=== PATIENT | female | born 1960 | race American Indian/Alaskan Native ===

== ENCOUNTER 2016-06-24 06:07 | Emergency (ER) | payer MEDICARE ==
[2016-06-24 07:36] LABS: Basophils % (Auto) 1.7 % (0.0-1.8); Eosinophils % (Auto) 4.8 % (0.0-4.3); Mean Corpuscular HGB Conc 30 % (30-34); Mean Corpuscular Volume 73 fl (79-97); Platelet Count 374 K/mm3 (140-440); Red Blood Count 4.95 M/mm3 (3.65-5.03); White Blood Count 9.1 K/mm3 (4.5-11.0)
[2016-06-24 07:43] LABS: Anion Gap 20 mmol/L; Blood Urea Nitrogen 28 mg/dL (7-17); Calcium 9.1 mg/dL (8.4-10.2); Carbon Dioxide 27 mmol/L (22-30); Chloride 95.8 mmol/L (98-107); Glucose 114 mg/dL (65-100); Potassium 4.4 mmol/L (3.6-5.0); Sodium 138 mmol/L (137-145)
[2016-06-24 07:44] LABS: Hemoglobin 10.8 gm/dl (10.1-14.3)
[2016-06-24 07:45] LABS: Hematocrit 35.9 % (30.3-42.9); Mean Corpuscular Hemoglobin 22 pg (28-32); Red Cell Distribution Width 20.3 % (13.2-15.2)
--- NOTE | 2016-06-24 09:57 | XRay Report ---
ROUTINE CHEST, TWO VIEWS: HISTORY: Shortness of breath. The trachea, heart, mediastinal contour, lung [place] and bony thorax are unremarkable. IMPRESSION: Unremarkable chest x-ray.
--- NOTE | 2016-06-24 13:00 | Emergency Department Report ---
HPI - General Chief Complaint: Dyspnea/Respdistress Time Seen by Provider: 06/24/16 12:45 - HPI HPI: Chief complaint: Swelling to her legs and abdomen, shortness of breath, productive cough HPI: Patient is a 56-year-old female states she's been having swelling and increasing shortness of breath over the last 3 weeks. Patient denies previous history of congestive heart failure. Patient has been coughing up some white and yellow productive sputum. Patient denies fever, nausea, vomiting or diarrhea. Patient is not a smoker. Patient has a remote history of a pulmonary embolus in the past Mode of arrival: private car Source: Patient Began 3 weeks ago Context. Swelling started after taking an [id number] medication called Lucas childers and that is when she started swelling. Quality: Right ankle soreness Severity: 4 out of 10 Improved with: Nothing Worsened with: Exertion and laying flat Associated signs and symptoms: [] ED Past Medical Hx - Past Medical History Previous Medical History?: Yes Hx Hypertension: Yes Hx Diabetes: Yes Hx Pulmonary Embolism: Yes (1994 Blood clot in lung lung collapsed) Additional medical history: Two herniated disc, felt like she had the flu and has had a persistent cough - Medications Home Medications: Home Medications Medication Instructions Recorded Confirmed Last Taken Type Furosemide [Lasix] 20 mg PO QDAY #10 tablet 06/24/16 Unknown Rx Sulfamethoxazole/Trimethoprim 1 each PO BID #20 tablet 06/24/16 Unknown Rx [Bactrim DS TAB] ED Review of Systems ROS: Stated complaint: SWELLING Other details as noted in HPI ROS Constitutional: No fever ENT: No uri symptoms Cardiovascular: No chest pain Respiratory: See HPI GI: No nausea vomiting or diarrhea : No dysuria frequency or urgency, Skin: Erythema to right lower leg Neuro: No focal weakness or numbness Psych: No depression Uriel/lymph: edema Physical Exam - Physical Exam Vital Signs: Vital Signs 06/24/16 06:48 Temperature 98.7 F Pulse Rate 105 H Respiratory 20 Rate Blood Pressure 125/84 O2 Sat by Pulse 88 Oximetry Physical Exam: GENERAL: The patient is a morbidly obese -[place] female with a pulse ox of 88% on room air. HEENT: Normocephalic. Atraumatic. Extraocular motions are intact. Patient has moist mucous membranes. NECK: Supple. No meningitic signs are noted. There is no adenopathy noted. CHEST/LUNGS: Clear to auscultation. There is no respiratory distress noted. HEART/CARDIOVASCULAR: Regular. There is no tachycardia. ABDOMEN: Abdomen is soft, nontender. Patient has normal bowel sounds. There is no abdominal distention. SKIN: There is minimal erythema to the right lower leg. There is 3+ bilateral pedal edema. There is no diaphoresis. NEURO: The patient is awake, alert, and oriented. The patient is cooperative. The patient has no focal neurologic deficits. The patient has normal speech. MUSCULOSKELETAL: There is no tenderness or deformity. There is no limitation range of motion. There is no evidence of acute injury. ED Course Vital Signs 06/24/16 06:48 Temperature 98.7 F Pulse Rate 105 H Respiratory 20 Rate Blood Pressure 125/84 O2 Sat by Pulse 88 Oximetry - Reevaluation(s) Reevaluation #1: 06/24/16 Patient was given 20 mg of IV Lasix. 06/24/16 17:47 Patient had a negative Doppler of her lower extremities but given her hypoxia and her previous history of DVT a VQ scan was attempted. Patient refused the VQ scan and wants to sign out AGAINST MEDICAL ADVICE. Patient is unable to have a CTA because of her renal sufficiency. Patient also does not want to be admitted to the hospital. ED Medical Decision Making - Lab Data Result diagrams: 06/24/16 07:12 06/24/16 07:12 Laboratory Tests 06/24/16 06/24/16 06/24/16 07:12 07:12 12:44 Calcium 9.1 NT-Pro-B Natriuret Pep 3276 H Ur Leukocyte Esterase Lg Urine WBC (Auto) 98.0 H Urine RBC (Auto) 30.0 U Epithel Cells (Auto) 4.0 Urine Bacteria (Auto) 1+ Urine WBC Clumps 2+ - EKG Data -: EKG Interpreted by Me EKG shows normal: sinus rhythm Rate: tachycardia (103) - EKG Data When compared to previous EKG there are: previous EKG unavailable Interpretation: other (low-voltage EKG) - Radiology Data Radiology results: report reviewed (chest x-ray shows no acute process. Doppler of patient's lower extremity shows no DVT.) Critical care attestation.: If time is entered above; I have spent that time in minutes in the direct care of this critically ill patient, excluding procedure time. ED Disposition Clinical Impression: Pedal edema, Hypoxia, Renal insufficiency Cellulitis Qualifiers: Site of cellulitis: extremity Site of cellulitis of extremity: lower extremity Laterality: right Qualified Code(s): L03.115 - Cellulitis of right lower limb Disposition: LEFT AGAINST MEDICAL ADVICE Is pt being admited?: No Does the pt Need Aspirin: No Condition: Stable Instructions: Leg Edema (ED), Heart Failure (ED), Impaired Kidney Function (ED) Additional Instructions: You will need follow-up with a direct marketing manager to have an echocardiogram to make sure you do not have congestive heart failure. You understand that a pulmonary embolus has not been ruled out and could cause severe disability as well as possible . Prescriptions: Furosemide [Lasix] 20 mg PO QDAY #10 tablet Sulfamethoxazole/Trimethoprim [Bactrim DS TAB] 1 each PO BID #20 tablet Referrals: HENRRY SANTANA MD [Primary Care Provider] - 24 Hours [facility] [Provider Group] - 24 Hours Time of Disposition: 17:54
[2016-06-24 13:09] LABS: Bacteria,Urine 1+ /HPF (Negative); Bilirubin,Urine NEG (Negative); Blood,Urine LG (Negative); Ketones,Urine NEG (Negative); Leukocyte Esterase,Urine LG (Negative); Mucus,Urine FEW /HPF; Nitrite,Urine NEG (Negative); Urobilinogen,Urine < 2.0 mg/dL (<2.0)
[2016-06-24 15:20] LABS: Albumin 3.8 g/dL (3.9-5); Bilirubin,Direct 0.2 mg/dL (0-0.2); Bilirubin,Indirect 0.3 mg/dL; Bilirubin,Total 0.5 mg/dL (0.1-1.2); Total Protein 7.5 g/dL (6.3-8.2)
[2016-06-24] MEDS ORDERED: LASIX IV ONE (15:41)
[2016-06-24 19:09] VITALS: BP 155/79
--- NOTE | 2016-06-25 07:43 | Vascular Lab Report ---
LOWER EXTREMITY VENOUS DUPLEX: REASON FOR EXAM: Bilateral leg swelling. COMMENTS ON THE RIGHT: All veins visualized are freely compressible without evidence of internal echogenicity. Flow is spontaneous and phasic throughout. COMMENTS ON THE LEFT: All veins visualized are freely compressible without evidence of internal echogenicity. Flow is spontaneous and phasic throughout. IMPRESSION: No evidence of acute or chronic deep venous thrombosis in either lower extremity.
== END 2016-06-24 18:00 | disposition left against medical advice (07) ==
LOC: ED 06:07
DX: R09.02 Hypoxemia (principal); N28.9 Disorder of kidney and ureter, unspecified; R60.0 Localized edema; L03.115 Cellulitis of right lower limb; E11.9 Type 2 diabetes mellitus without complications; I26.99 Other pulmonary embolism without acute cor pulmonale; I10 Essential (primary) hypertension; Z88.2 Allergy status to sulfonamides; Z91.040 Latex allergy status
CPT/HCPCS: 36415; 71020; 80048; 80074; 81001; 83880; 84484; 85025; 93005; 93010; 93970; 96374; 99284; J1940

== ENCOUNTER 2018-04-14 14:15 | Inpatient (IN) | payer MEDICARE ==
[2018-04-14 14:53] LABS: Basophils # (Auto) 0.1 K/mm3 (0.0-0.1); Basophils % (Auto) 0.9 % (0.0-1.8); Eosinophils # (Auto) 0.2 K/mm3 (0.0-0.4); Eosinophils % (Auto) 1.6 % (0.0-4.3); Hematocrit 32.4 % (30.3-42.9); Hemoglobin 10.1 gm/dl (10.1-14.3); Lymphocytes # (Auto) 2.4 K/mm3 (1.2-5.4); Lymphocytes % (Auto) 16.5 % (13.4-35.0); Mean Corpuscular HGB Conc 31 % (30-34); Mean Corpuscular Volume 77 fl (79-97); Monocytes # (Auto) 1.3 K/mm3 (0.0-0.8); Platelet Count 415 K/mm3 (140-440)
[2018-04-14 14:54] LABS: Red Cell Distribution Width 20.2 % (13.2-15.2)
[2018-04-14 15:04] LABS: INR 1.26 (0.87-1.13)
[2018-04-14 15:05] LABS: Partial Thromboplastin Time 26.6 Sec. (24.2-36.6)
[2018-04-14 15:15] LABS: Calcium 8.9 mg/dL (8.4-10.2)
--- NOTE | 2018-04-14 15:21 | XRay Report ---
AP CHEST: HISTORY: Difficulty in breathing AP view of the chest demonstrates a normal mediastinal and cardiac contour with clear lungs and normal bony and soft tissue structures. No significant change since 06/14/16. IMPRESSION: Unremarkable AP chest.
[2018-04-14] MEDS ORDERED: NACL 0.9% 500 ML 500 ML IV ONE (15:24)
--- NOTE | 2018-04-14 15:24 | Emergency Department Report ---
ED General Adult HPI - General Chief complaint: Dyspnea/Respdistress Stated complaint: SOB Time Seen by Provider: 04/14/18 15:09 Source: patient, RN notes reviewed, old records reviewed Mode of arrival: Wheelchair Limitations: No Limitations - History of Present Illness Initial comments: This is a 57-year-old female who is not known to this provider previously. History includes asthma, obesity, and her primary care doctor is Dr. Kennedi Dodson The patient presents to the ER with a complaint of painless shortness of breath. This has been present for 2 weeks. Patient reports that she feels malaise, fatigue, tired. She reports no chest pain, no leg pain, no leg swelling, and she is adamant that she's never had a pulmonary embolus or DVT. She denies DVT, pulmonary embolus risk factors. As far she knows, she does not have a history of obstructive sleep apnea, but has never had a formal sleep study. Her bed partner indicates that she does occasionally snore at night. Shortness of breath is constant, worsens with physical exertion, decreases with rest. -: Gradual Consistency: constant Improves with: rest Worsens with: movement Associated Symptoms: loss of appetite, malaise, shortness of breath, weakness. denies: confusion, chest pain, cough, diaphoresis, fever/chills, headaches, nausea/vomiting, rash, seizure, syncope - Related Data Home Medications Medication Instructions Recorded Confirmed Last Taken Albuterol Sulfate [Proventil Hfa] 2 puff IH Q4-6H PRN 04/14/18 04/14/18 04/14/18 Losartan/Hydrochlorothiazide 1 each PO QDAY 04/14/18 04/14/18 04/14/18 [Losartan-Hctz 100-25 mg Tab] Lovastatin [Altoprev] 20 mg PO HS 04/14/18 04/14/18 Unknown Metformin HCl [Glucophage] 1,000 mg PO BID 04/14/18 04/14/18 04/14/18 Sitagliptin Phosphate [Januvia] 100 mg PO QDAY 04/14/18 04/14/18 04/14/18 Allergies Allergy/AdvReac Type Severity Reaction Status Date / Time No Known Allergies Allergy Unverified 06/24/16 06:40 ED Review of Systems ROS: Stated complaint: SOB Other details as noted in HPI Constitutional: malaise, weakness Eyes: denies: eye discharge ENT: denies: epistaxis Respiratory: shortness of breath Cardiovascular: denies: chest pain Gastrointestinal: denies: abdominal pain, nausea, vomiting Genitourinary: denies: dysuria Musculoskeletal: denies: arthralgia, myalgia Skin: denies: lesions Neurological: weakness ED Past Medical Hx - Past Medical History Hx Hypertension: Yes Hx Diabetes: Yes Hx Pulmonary Embolism: Yes (1994 Blood clot in lung lung collapsed) Additional medical history: Two herniated disc, felt like she had the flu and has had a persistent cough - Surgical History Past Surgical History?: No - Social History Smoking Status: Never Smoker Substance Use Type: None - Medications Home Medications: Home Medications Medication Instructions Recorded Confirmed Last Taken Type Albuterol Sulfate [Proventil Hfa] 2 puff IH Q4-6H PRN 04/14/18 04/14/18 04/14/18 History Losartan/Hydrochlorothiazide 1 each PO QDAY 04/14/18 04/14/18 04/14/18 History [Losartan-Hctz 100-25 mg Tab] Lovastatin [Altoprev] 20 mg PO HS 04/14/18 04/14/18 Unknown History Metformin HCl [Glucophage] 1,000 mg PO BID 04/14/18 04/14/18 04/14/18 History Sitagliptin Phosphate [Januvia] 100 mg PO QDAY 04/14/18 04/14/18 04/14/18 Hist ory ED Physical Exam - General Limitations: No Limitations General appearance: alert, in no apparent distress - Head Head exam: Present: atraumatic, normocephalic - Eye Eye exam: Present: normal appearance, EOMI. Absent: nystagmus - ENT ENT exam: Present: normal exam, normal orophraynx, mucous membranes moist, normal external ear exam - Neck Neck exam: Present: normal inspection, full ROM. Absent: tenderness, meningismus - Respiratory Respiratory exam: Present: normal lung sounds bilaterally. Absent: respiratory distress - Cardiovascular Cardiovascular Exam: Present: regular rate, normal rhythm. Absent: systolic murmur, diastolic murmur, rubs, gallop - GI/Abdominal GI/Abdominal exam: Present: soft. Absent: distended, tenderness, guarding, rebound, rigid, pulsatile mass - Extremities Exam Extremities exam: Present: normal inspection, full ROM, other (2+ pulses noted in the bilateral upper, lower extremities. Compartments soft. No long bony tenderness. The pelvis is stable.). Absent: joint swelling, calf tenderness - Back Exam Back exam: Present: normal inspection, full ROM. Absent: tenderness, CVA tenderness (R), muscle spasm, paraspinal tenderness, vertebral tenderness - Neurological Exam Neurological exam: Present: alert, oriented X3, CN II-XII intact, other (Extraocular movements intact. Tongue midline. No facial droop. Facial sensation intact to light touch in the V1, V2, V3 distribution bilaterally. 5 and 5 strength in 4 extremities.. Sensation is intact to light touch in 4 extremities.). Absent: motor sensory deficit - Psychiatric Psychiatric exam: Present: normal affect, normal mood - Skin Skin exam: Present: warm, dry, intact, normal color. Absent: rash ED Course Vital Signs 04/14/18 04/14/18 04/14/18 14:26 15:00 15:16 Temperature 97.5 F L Pulse Rate 94 H 87 Respiratory 22 25 H Rate Blood Pressure 91/56 98/62 O2 Sat by Pulse 88 87 93 Oximetry 04/14/18 04/14/18 04/14/18 15:30 15:46 16:00 Temperature Pulse Rate 86 88 83 Respiratory 21 18 26 H Rate Blood Pressure 99/60 99/60 101/61 O2 Sat by Pulse 93 92 Oximetry 04/14/18 04/14/18 04/14/18 17:08 17:30 18:00 Temperature Pulse Rate 86 88 Respiratory 23 27 H Rate Blood Pressure 101/61 101/60 101/60 O2 Sat by Pulse 95 97 94 Oximetry - Reevaluation(s) Reevaluation #1: 04/14/18 15:57 Differential diagnosis, including but not limited to: Obstructive sleep apnea, right-sided heart failure, renal insufficiency, vasomotor nephropathy, cardiorenal syndrome, obesity hypoventilation syndrome Assessment and plan: 57-year-old female, who reports no DVT, or pulmonary embolus risk factors, who is low risk by well's criteria, who is morbidly obese, most likely with obesity hypoventilation syndrome as well as pulmonary hypertension as well as obstructive sleep apnea, presenting with shortness of breath, hypoxemia, borderline hypoxemic respiratory failure, as well as acute renal insufficiency. Lungs are clear, proBNP appreciated, does not have significant JVD, or significant lower extremity edema. C clinically doubt DVT or pulmonary embolus, given lack of tachycardia, given lack of risk factors, however, we will obtain bilateral lower extremity DVT study, and renal ultrasound study. We will give the patient a trial bolus of 500 mL, and place her on supplemental oxygen. Plan to admit to the medical service for renal optimization and improve oxygenation. This is discussed with patient and family, who verbalized understanding, and are amenable to this plan of care. Discussed with Hospital physician, Dr. Slater, who indicates he will admit the patient to the medical service, and discussed plan of care with covering supervisor decorating, Dr. Jaffe, who agrees with ER plan of care, and indicates he will follow in consultation. Reevaluation #2: 04/14/18 18:45 Patient feels improved. DVT study negative for acute disease. Renal ultrasound shows medical renal disease, otherwise no acute findings. Awaiting bed placement. ED Medical Decision Making - Lab Data Result diagrams: 04/14/18 14:38 04/14/18 14:38 Vital Signs 04/14/18 04/14/18 04/14/18 14:26 15:00 15:16 Temperature 97.5 F L Pulse Rate 94 H 87 Respiratory 22 25 H Rate Blood Pressure 91/56 98/62 O2 Sat by Pulse 88 87 93 Oximetry 04/14/18 04/14/18 15:30 15:46 Temperature Pulse Rate 86 88 Respiratory 21 18 Rate Blood Pressure 99/60 99/60 O2 Sat by Pulse 93 Oximetry Lab Results 04/14/18 04/14/18 04/14/18 Range/Units 14:38 14:38 14:38 WBC 14.7 H (4.5-11.0) K/mm3 RBC 4.20 (3.65-5.03) M/mm3 Hgb 10.1 (10.1-14.3) gm/dl Hct 32.4 (30.3-42.9) % MCV 77 L (79-97) fl MCH 24 L (28-32) pg MCHC 31 (30-34) % RDW 20.2 H (13.2-15.2) % Plt Count 415 (140-440) K/mm3 Lymph % (Auto) 16.5 (13.4-35.0) % [place] % (Auto) 9.0 H (0.0-7.3) % Eos % (Auto) 1.6 (0.0-4.3) % Baso % (Auto) 0.9 (0.0-1.8) % Lymph # 2.4 (1.2-5.4) K/mm3 [place] # 1.3 H (0.0-0.8) K/mm3 Eos # 0.2 (0.0-0.4) K/mm3 Baso # 0.1 (0.0-0.1) K/mm3 Seg Neutrophils % 72.0 H (40.0-70.0) % Seg Neutrophils # 10.6 H (1.8-7.7) K/mm3 PT (12.2-14.9) Sec. INR (0.87-1.13) APTT (24.2-36.6) Sec. POC ABG pH (7.35-7.45) POC ABG pCO2 (35-45) POC ABG pO2 (80-105) POC ABG HCO3 POC ABG Total CO2 POC ABG O2 Sat POC ABG Base Excess FiO2 % Sodium 139 (137-145) mmol/L Potassium 4.5 (3.6-5.0) mmol/L Chloride 99.6 (98-107) mmol/L Carbon Dioxide 19 L (22-30) mmol/L Anion Gap 25 mmol/L BUN 74 H (7-17) mg/dL Creatinine 4.1 H (0.7-1.2) mg/dL Estimated GFR 14 ml/min BUN/Creatinine Ratio 18 % Glucose 138 H (65-100) mg/dL Calcium 8.9 (8.4-10.2) mg/dL NT-Pro-B Natriuret Pep 82556 H (0-900) pg/mL 04/14/18 04/14/18 Range/Units 14:42 15:51 WBC (4.5-11.0) K/mm3 RBC (3.65-5.03) M/mm3 Hgb (10.1-14.3) gm/dl Hct (30.3-42.9) % MCV (79-97) fl MCH (28-32) pg MCHC (30-34) % RDW (13.2-15.2) % Plt Count (140-440) K/mm3 Lymph % (Auto) (13.4-35.0) % [place] % (Auto) (0.0-7.3) % Eos % (Auto) (0.0-4.3) % Baso % (Auto) (0.0-1.8) % Lymph # (1.2-5.4) K/mm3 [place] # (0.0-0.8) K/mm3 Eos # (0.0-0.4) K/mm3 Baso # (0.0-0.1) K/mm3 Seg Neutrophils % (40.0-70.0) % Seg Neutrophils # (1.8-7.7) K/mm3 PT 16.2 H (12.2-14.9) Sec. INR 1.26 H (0.87-1.13) APTT 26.6 (24.2-36.6) Sec. POC ABG pH 7.343 L (7.35-7.45) POC ABG pCO2 35.9 (35-45) POC ABG pO2 61 L (80-105) POC ABG HCO3 19.5 POC ABG Total CO2 21 POC ABG O2 Sat 90 POC ABG Base Excess -6 FiO2 21 % Sodium (137-145) mmol/L Potassium (3.6-5.0) mmol/L Chloride (98-107) mmol/L Carbon Dioxide (22-30) mmol/L Anion Gap mmol/L BUN (7-17) mg/dL Creatinine (0.7-1.2) mg/dL Estimated GFR ml/min BUN/Creatinine Ratio % Glucose (65-100) mg/dL Calcium (8.4-10.2) mg/dL NT-Pro-B Natriuret Pep (0-900) pg/mL - EKG Data -: EKG Interpreted by In EKG shows normal: sinus rhythm - EKG Data 04/14/18 15:59 Sinus, 91 bpm, borderline rightward axis deviation, low voltage, incomplete r ight bundle branch block, abnormal EKG, not consistent with ST elevation myocardial infarction, appears unchanged from prior EKG from 06/24/2016 - Radiology Data Radiology results: report reviewed, image reviewed X-ray of the chest demonstrates enlarged cardiac silhouette, otherwise no acute disease Critical care attestation.: If time is entered above; I have spent that time in minutes in the direct care of this critically ill patient, excluding procedure time. ED Disposition Clinical Impression: DMITRY (acute kidney injury), Respiratory failure Disposition: DC-09 OP ADMIT IP TO THIS HOSP Is pt being admited?: Yes Does the pt Need Aspirin: Yes Condition: Stable
[2018-04-14] MEDS ORDERED: BABY ASPIRIN PO ONE (16:00)
--- NOTE | 2018-04-14 16:28 | Consultation ---
History of Present Illness - Reason for Consult Consult date: 04/14/18 acute renal failure, chronic renal failure - History of Present Illness The patient is a 57 Yo female with history significant for Morbid obesity, DM-2, HTN, HLD and Asthma who presented to the ER with complaint of shortness of breath. The symptom started about 2 weeks ago. Shortness of breath is constant, worsens with physical exertion and decreases with rest. Associated symptoms include dry cough, fatigue and tiredness. She denies chest pain, orthopnea, PND, leg swelling or pain, hemoptysis, dizziness, syncope, fever, chills, dysuria, hematuria or jaundice. Intial BP was 91/56. Labs significant for creatinine 4.1, increased from 1.4 about 2 years ago. Nephrology was consulted for further evaluation. Past History Past Medical History: diabetes, hypertension, hyperlipidemia, other (Obesity, Asthma) Medications and Allergies Allergies Allergy/AdvReac Type Severity Reaction Status Date / Time No Known Allergies Allergy Unverified 06/24/16 06:40 Home Medications Medication Instructions Recorded Confirmed Last Taken Type Albuterol Sulfate [Proventil Hfa] 2 puff IH Q4-6H PRN 04/14/18 04/14/18 04/14/18 History Losartan/Hydrochlorothiazide 1 each PO QDAY 04/14/18 04/14/18 04/14/18 History [Losartan-Hctz 100-25 mg Tab] Lovastatin [Altoprev] 20 mg PO HS 04/14/18 04/14/18 Unknown History Metformin HCl [Glucophage] 1,000 mg PO BID 04/14/18 04/14/18 04/14/18 History Sitagliptin Phosphate [Januvia] 100 mg PO QDAY 04/14/18 04/14/18 04/14/18 History Review of Systems Constitutional: weight loss (intentional), fatigue, malaise, no weight gain, no fever, no chills, no weakness, no poor appetite Breasts: deferred Cardiovascular: shortness of breath, dyspnea on exertion, high blood pressure, decreased exercise tolerance, no chest pain, no orthopnea, no palpitations, no e jaquelin, no syncope, no lightheadedness, no paroxysmal nocturnal dyspnea, no leg edema Respiratory: cough, shortness of breath, dyspnea on exertion, snoring, no cough with sputum, no hemoptysis, no sleep apnea, no home oxygen Gastrointestinal: no abdominal pain, no nausea, no vomiting, no diarrhea, no melena Genitourinary Female: no dysuria, no hematuria Rectal: no bleeding Musculoskeletal: no neck pain, no redness of joints Integumentary: no rash, no redness, no sores, no wounds, no jaundice Neurological: no paralysis, no weakness, no numbness, no tingling, no seizures, no syncope, no headaches, no aphasia, no change in speech, no change in mentation, no confusion, no double vision, no loss of vision Psychiatric: no change in appetite Exam - Vital Signs Vital signs: Vital Signs Temp Pulse Resp BP Pulse Ox 97.5 F L 94 H 22 91/56 88 04/14/18 14:26 04/14/18 14:26 04/14/18 14:26 04/14/18 14:26 04/14/18 14:26 - General Appearance General appearance: well-developed, well-nourished, appears stated age, obese, other (not in distress) EENT: ATNC, PERRL, mucous membranes moist, hearing intact, vision intact Neck: Present: neck supple, trachea midline, JVD/HJR Respiratory: Clear to Ascultation Heart: regular, S1S2, no murmurs Gastrointestinal: Present: normoactive bowel sounds. Absent: tenderness, distended Integumentary: no rash, warm and dry Neurologic: no focal deficit, no asterixis, alert and oriented x3 Musculoskeletal: Present: other (trace LE edema noted) Results - Lab Results 04/14/18 14:38 04/14/18 14:38 Most recent lab results Calcium 8.9 mg/dL (8.4-10.2) 04/14/18 14:38 - Image Kidney/bladder ultrasound: report reviewed Assessment and Plan 1. Acute kidney injury: DMITRY superimposed on CKD in the setting of hypotension and CHF. Urines studies ordered. Renal US was negative for any hydronephrosis. Renal prognosis is guarded. Monitor. 2. FEN: Patient has elevated JVP and BNP. IV fluids if BP drops. Mild metabolic acidosis. 3. CHF: Echo. 4. DM-2.
--- NOTE | 2018-04-14 17:48 | Vascular Lab Report ---
FINAL REPORT EXAM: VL VENOUS DUPLEX LE LT HISTORY: dyspnea TECHNIQUE: Grayscale and color and spectral Doppler ultrasound imaging of the left lower extremity w as performed for the purposes of assessing for deep venous thrombosis. PRIORS: None. FINDINGS: No evidence of deep venous thrombosis is seen within the left common femoral through the posterior ti bial and peroneal veins. Normal compression and color flow is seen throughout the venous system of th e left lower extremity. Normal augmentation was seen. IMPRESSION: Negative for left lower extremity deep venous thrombosis.
--- NOTE | 2018-04-14 18:21 | Ultrasound Report ---
FINAL REPORT EXAM: US RENAL BILAT HISTORY: mickie TECHNIQUE: Grayscale and color-flow imaging of the kidneys and urinary bladder was performed. Comparison: None FINDINGS: Right kidney: Measures 9.4 centimeters x 4.9 centimeters x 4.8 centimeters with a cortical thickness measurement of 1.8 centimeter. Left kidney: Measures 10.9 centimeters x 5.6 centimeters x 5 centimeters with a cortical thickness me asurement of 1.3 centimeters. There is no demonstration of hydronephrosis, renal calculi or renal mass of either kidney. The renal cortex echogenicity of the right kidney is slightly hyperechoic relative to the liver which can be seen with medical renal disease. The urinary bladder is mildly distended which limits evaluation IMPRESSION: 1. Increased echogenicity of the cortex of the right kidney relative to the liver which can be seen w ith medical renal disease. 2. Otherwise unremarkable appearance of the kidneys bilaterally.
[2018-04-14] MEDS ORDERED: PROVENTIL IH PRN (20:39)
--- NOTE | 2018-04-15 00:26 | History and Physical Report ---
History of Present Illness Date of examination: 04/14/18 Date of admission: 04/14/18 16:00 Chief complaint: Increasing SOB for 2 weeks History of present illness: 57-year-old female with pmh of HTN T2DM and HLD Presents with increasing sob for past 2 weeks.No chest pain.Also increasing fatigue.No swelling of feet or puffiness of face.Exertional dyspnea present.No history of DVT or PE.No exacerbating or relieving factors.No fever or chills. Past Medical History Hypertension: Yes Diabetes: Yes Pulmonary Embolism: Yes (1994 Blood clot in lung lung collapsed) Additional medical history: Two herniated disc, felt like she had the flu and has had a persistent cough Surgical History Past Surgical History?: No Social History Smoking Status: Never Smoker Substance Use Type: None Family history Htn Medications Home Medications: Home Medications Medication Instructions Recorded Confirmed Last Taken Type Albuterol Sulfate [Proventil Hfa] 2 puff IH Q4-6H PRN 04/14/18 04/14/18 04/14/18 History Losartan/Hydrochlorothiazide 1 each PO QDAY 04/14/18 04/14/18 04/14/18 History [Losartan-Hctz 100-25 mg Tab] Lovastatin [Altoprev] 20 mg PO HS 04/14/18 04/14/18 Unknown History Metformin HCl [Glucophage] 1,000 mg PO BID 04/14/18 04/14/18 04/14/18 History Sitagliptin Phosphate [Januvia] 100 mg PO QDAY 04/14/18 04/14/18 04/14/18 History Review of Systems ROS: Stated complaint: SOB Other details as noted in HPI Constitutional: malaise, weakness Eyes: denies: eye discharge ENT: denies: epistaxis Respiratory: shortness of breath Cardiovascular: denies: chest pain Gastrointestinal: denies: abdominal pain, nausea, vomiting Genitourinary: denies: dysuria Musculoskeletal: denies: arthralgia, myalgia Skin: denies: lesions Neurological: weakness Past History Past Medical History: diabetes, hypertension, hyperlipidemia, other (Obesity, Asthma) Medications and Allergies Allergies Allergy/AdvReac Type Severity Reaction Status Date / Time No Known Allergies Allergy Verified 04/14/18 20:41 Home Medications Medication Instructions Recorded Confirmed Last Taken Type Albuterol Sulfate [Proventil Hfa] 2 puff IH Q4-6H PRN 04/14/18 04/14/18 04/14/18 History Losartan/Hydrochlorothiazide 1 each PO QDAY 04/14/18 04/14/18 04/14/18 History [Losartan-Hctz 100-25 mg Tab] Lovastatin [Altoprev] 20 mg PO HS 04/14/18 04/14/18 Unknown History Metformin HCl [Glucophage] 1,000 mg PO BID 04/14/18 04/14/18 04/14/18 History Sitagliptin Phosphate [Januvia] 100 mg PO QDAY 04/14/18 04/14/18 04/14/18 History Active Meds: Active Medications Albuterol (Proventil) 2.5 mg IH Q4HRT PRN PRN Reason: Shortness Of Breath Last Admin: 04/14/18 20:48 Dose: 2.5 mg Documented by: Exam - Constitutional Vitals: Temp Pulse Resp BP Pulse Ox 97.5 F L 95 H 18 98/78 92 04/14/18 14:26 04/14/18 20:40 04/14/18 22:53 04/14/18 18:41 04/14/18 22:53 General appearance: Present: mild distress, well-nourished - EENT Eyes: Present: PERRL ENT: hearing intact, clear oral mucosa - Neck Neck: Present: supple, normal ROM - Respiratory Respiratory effort: normal Respiratory: bilateral: CTA, rales - Cardiovascular Heart rate: 90 Rhythm: regular Heart Sounds: Present: S1 & S2. Absent: rub, click - Extremities Extremities: no ischemia, pulses intact, pulses symmetrical, No edema Peripheral Pulses: within normal limits - Abdominal General gastrointestinal: Present: soft, non-tender, non-distended, normal bowel sounds Female genitourinary: Present: normal - Rectal Rectal Exam: deferred - Integumentary Integumentary: Present: clear, warm, dry - Musculoskeletal Musculoskeletal: gait normal, strength equal bilaterally - Psychiatric Psychiatric: appropriate mood/affect, intact judgment & insight - Neurologic Neurologic: CNII-XII intact, moves all extremities - Allied Health Allied health notes reviewed: case management Results - Labs CBC & Chem 7: 04/14/18 14:38 04/14/18 14:38 Labs: Laboratory Last Values WBC 14.7 K/mm3 (4.5-11.0) H 04/14/18 14:38 RBC 4.20 M/mm3 (3.65-5.03) 04/14/18 14:38 Hgb 10.1 gm/dl (10.1-14.3) 04/14/18 14:38 Hct 32.4 % (30.3-42.9) 04/14/18 14:38 MCV 77 fl (79-97) L 04/14/18 14:38 MCH 24 pg (28-32) L 04/14/18 14:38 MCHC 31 % (30-34) 04/14/18 14:38 RDW 20.2 % (13.2-15.2) H 04/14/18 14:38 Plt Count 415 K/mm3 (140-440) 04/14/18 14:38 Lymph % (Auto) 16.5 % (13.4-35.0) 04/14/18 14:38 [place] % (Auto) 9.0 % (0.0-7.3) H 04/14/18 14:38 Eos % (Auto) 1.6 % (0.0-4.3) 04/14/18 14:38 Baso % (Auto) 0.9 % (0.0-1.8) 04/14/18 14:38 Lymph # 2.4 K/mm3 (1.2-5.4) 04/14/18 14:38 [place] # 1.3 K/mm3 (0.0-0.8) H 04/14/18 14:38 Eos # 0.2 K/mm3 (0.0-0.4) 04/14/18 14:38 Baso # 0.1 K/mm3 (0.0-0.1) 04/14/18 14:38 Seg Neutrophils % 72.0 % (40.0-70.0) H 04/14/18 14:38 Seg Neutrophils # 10.6 K/mm3 (1.8-7.7) H 04/14/18 14:38 PT 16.2 Sec. (12.2-14.9) H 04/14/18 14:42 INR 1.26 (0.87-1.13) H 04/14/18 14:42 APTT 26.6 Sec. (24.2-36.6) 04/14/18 14:42 POC ABG pH 7.343 (7.35-7.45) L 04/14/18 15:51 POC ABG pCO2 35.9 (35-45) 04/14/18 15:51 POC ABG pO2 61 (80-105) L 04/14/18 15:51 POC ABG HCO3 19.5 04/14/18 15:51 POC ABG Total CO2 21 04/14/18 15:51 POC ABG O2 Sat 90 04/14/18 15:51 POC ABG Base Excess -6 04/14/18 15:51 FiO2 21 % 04/14/18 15:51 Sodium 139 mmol/L (137-145) 04/14/18 14:38 Potassium 4.5 mmol/L (3.6-5.0) 04/14/18 14:38 Chloride 99.6 mmol/L (98-107) 04/14/18 14:38 Carbon Dioxide 19 mmol/L (22-30) L 04/14/18 14:38 Anion Gap 25 mmol/L 04/14/18 14:38 BUN 74 mg/dL (7-17) H 04/14/18 14:38 Creatinine 4.1 mg/dL (0.7-1.2) H 04/14/18 14:38 Estimated GFR 14 ml/min 04/14/18 14:38 BUN/Creatinine Ratio 18 % 04/14/18 14:38 Glucose 138 mg/dL (65-100) H 04/14/18 14:38 POC Glucose 169 (70-105) H 04/14/18 22:18 Calcium 8.9 mg/dL (8.4-10.2) 04/14/18 14:38 NT-Pro-B Natriuret Pep 87779 pg/mL (0-900) H 04/14/18 14:38 - Imaging and Cardiology EKG: report reviewed (Nsr 91 /min) Imaging and Cardiology: CXR NAF Renal ultrasound IMPRESSION: 1. Increased echogenicity of the cortex of the right kidney relative to the liver which can be seen with medical renal disease. 2. Otherwise unrem arkable appearance of the kidneys bilaterally. Assessment and Plan Advance Directives: Yes (Full code) VTE prophylaxis?: Chemical Plan of care discussed with patient/family: Yes - Patient Problems (1) DMITRY (acute kidney injury) Current Visit: Yes Status: Acute Plan to address problem: Worsening Kidney function Baseline Cr about 28/1.4 in June 2016.Now 74/4.1 Nephrology consulted No [place] [address] (2) Acute exacerbation of CHF (congestive heart failure) Current Visit: Yes Status: Acute Qualifiers: Heart failure type: combined systolic and diastolic Qualified Code(s): I50.43 - Acute on chronic combined systolic (congestive) and diastolic (congestive) heart failure Plan to address problem: BNP elevated Will give one dose of Lasix Check ECHO for EF Cardiology consult (3) HTN (hypertension) Current Visit: Yes Status: Chronic Qualifiers: Hypertension type: essential hypertension Qualified Code(s): I10 - Essential (primary) hypertension Plan to address problem: Cont antihypertensives (4) T2DM (type 2 diabetes mellitus) Current Visit: Yes Status: Chronic Qualifiers: Diabetes mellitus half-way insulin use: without long term care pharmacist use Plan to address problem: Cont oral Hypoglycemics and coverage (5) HLD (hyperlipidemia) Current Visit: Yes Status: Chronic Qualifiers: Hyperlipidemia type: mixed hyperlipidemia Qualified Code(s): E78.2 - Mixed hyperlipidemia Plan to address problem: COnt statins (6) Asthma Current Visit: Yes Status: Chronic Qualifiers: Asthma persistence: unspecified Plan to address problem: Albuterol mdi prn (7) DVT prophylaxis Current Visit: Yes Status: Acute Plan to address problem: On Heparin and GI prophylaxis
[2018-04-15] MEDS ORDERED: PROAIR IH PRN (00:56)
[2018-04-15] MEDS ORDERED: SODIUM CHLORIDE FLUSH SYRINGE 10 ML IV PRN (01:00)
[2018-04-15] MEDS ORDERED: DILAUDID IV PRN (01:00)
[2018-04-15] MEDS ORDERED: ZOFRAN IV PRN (01:00)
[2018-04-15] MEDS ORDERED: PERCOCET 5/325 PO PRN (01:00)
[2018-04-15] MEDS ORDERED: TYLENOL PO PRN (01:00)
[2018-04-15] MEDS ORDERED: HEPARIN SUB-Q SCH (01:15)
[2018-04-15 05:56] LABS: Albumin 3.5 g/dL (3.9-5)
[2018-04-15] MEDS ORDERED: LASIX IV ONE (06:00)
[2018-04-15] MEDS: HEPARIN SUB-Q SCH ×2 (06:55→18:03)
--- NOTE | 2018-04-15 08:12 | Progress Note ---
Assessment and Plan 1. Acute kidney injury: DMITRY superimposed on CKD in the setting of hypotension. Urines studies pending. Renal US was negative for any hydronephrosis. No LV failure in the Echo. Antibodies and Complements are ordered. Will try gentle IV fluids overnight to see if there is any improvement in the renal function. Renal prognosis is guarded. Monitor. 2. FEN: IV fluids. Mild metabolic acidosis. 3. Right sided heart failure: Cor pulmonale. 4. DM-2. Subjective Date of service: 04/15/18 Interval history: Patient is doing ok. No new symptom. Objective - Vital Signs Vital signs: Vital Signs - 12hr 04/14/18 04/14/18 04/14/18 20:40 22:00 22:53 Temperature Pulse Rate Pulse Rate [ 95 H Posterior Bilateral Throughout] Respiratory 16 18 Rate Respiratory 20 Rate [Posterior Bilateral Throughout] Blood Pressure O2 Sat by Pulse 95 92 Oximetry 04/14/18 23:43 Temperature 98.4 F Pulse Rate 86 Pulse Rate [ Posterior Bilateral Throughout] Respiratory 20 Rate Respiratory Rate [Posterior Bilateral Throughout] Blood Pressure 97/58 O2 Sat by Pulse 93 Oximetry - General Appearance General appearance: well-developed, well-nourished, appears stated age, obese, o ther (not in distress) EENT: ATNC, PERRL, hearing intact, vision intact Neck: JVD, supple Respiratory: Present: Clear to Ascultation Cardiology: regular, S1S2, no murmurs Gastrointestinal: normoactive bowel sounds, no tenderness, no distended Neurologic: no focal deficit, no asterixis, alert and oriented x3 Musculoskeletal: other (trace LE edema) Psychiatric: cooperative - Lab 04/14/18 14:38 04/15/18 04:56 Most recent lab results Calcium 9.0 mg/dL (8.4-10.2) 04/15/18 04:56 Phosphorus 5.90 mg/dL (2.5-4.5) H 04/15/18 04:56 Medications & Allergies - Medications Allergies/Adverse Reactions: Allergies No Known Allergies Allergy (Verified 04/14/18 20:41) Home Medications: Home Medications Medication Instructions Recorded Confirmed Last Taken Type Albuterol Sulfate [Proventil Hfa] 2 puff IH Q4-6H PRN 04/14/18 04/14/18 04/14/18 History Losartan/Hydrochlorothiazide 1 each PO QDAY 04/14/18 04/14/18 04/14/18 History [Losartan-Hctz 100-25 mg Tab] Lovastatin [Altoprev] 20 mg PO HS 04/14/18 04/14/18 Unknown History Metformin HCl [Glucophage] 1,000 mg PO BID 04/14/18 04/14/18 04/14/18 History Sitagliptin Phosphate [Januvia] 100 mg PO QDAY 04/14/18 04/14/18 04/14/18 History Active Medications: Generic Name Dose Route Start Last Admin Trade Name Freq PRN Reason Stop Dose Admin Acetaminophen 650 mg 04/15/18 01:00 Tylenol PO Q4H PRN Pain MILD(1-3)/Fever >100.5/WHITEHEAD Albuterol 2.5 mg 04/14/18 20:39 04/14/18 20:48 Proventil IH 2.5 mg Q4HRT PRN Administration Shortness Of Breath Famotidine 10 mg 04/15/18 10:00 Pepcid PO BID [facility] Heparin Sodium (Porcine) 5,000 unit 04/15/18 06:00 04/15/18 06:55 Heparin SUB-Q 5,000 unit Q12H PAUL Administration Hydromorphone HCl 0.5 mg 04/15/18 01:00 Dilaudid IV Q3H PRN Pain , Severe (7-10) Ceftriaxone Sodium 1 gm in 50 mls @ 100 mls/hr 04/15/18 10:00 Rocephin/Ns 1 Gm/50 Ml IV Q24HR [facility] Protocol Insulin Human Lispro 0 unit 04/15/18 07:30 Humalog SUB-Q ACHS [facility] Protocol Linagliptin 5 mg 04/15/18 10:00 Tradjenta PO QDAY PAUL Ondansetron HCl 4 mg 04/15/18 01:00 Zofran IV Q8H PRN Nausea And Vomiting Oxycodone/Acetaminophen 1 tab 04/15/18 01:00 Percocet 5/325 PO Q6H PRN Pain, Moderate (4-6) Pravastatin Sodium 20 mg 04/15/18 22:00 Pravachol PO QHS [facility] Sodium Chloride 10 ml 04/15/18 10:00 Sodium Chloride Flush Syringe 10 Ml IV BID PAUL Sodium Chloride 10 ml 04/15/18 01:00 Sodium Chloride Flush Syringe 10 Ml IV PRN PRN LINE FLUSH
[2018-04-15] MEDS: HumaLOG SUB-Q SCH ×4 (08:52→22:17)
--- NOTE | 2018-04-15 09:39 | Consultation ---
Addendum entered and electronically signed by GLEN SOUSA MD 04/15/18 13:47: 57-year-old woman who presented to the hospital with 3-4 days of shortness of br eath, on presentation the oxygen saturation was 88%. She was admitted to the medical floor, and cardiogenic consultation was requested for "CHF". There was no chest pain, and there was minimal left lower extremity edema. The patient gives a history of chronic asthma, hypertension, diabetes and severe obesity. There is a report in the chart of a remote history of pulmonary embolism. There is no documented significant prior cardiac history. This presentation, the chest x-ray shows clear lungs, with no interstitial edema, no heart failure. There is an increased size of the cardiac silhouette, there is particular prominence of the left hilum suggestive for an enlarged pulmonary arterial trunk. ECG is normal sinus rhythm with borderline inferior Q waves, incomplete right bundle branch block, and low voltage QRS. Laboratory values show a mild to moderate elevation of the liver transaminases, and severe renal failure with a creatinine of 4.1. An echocardiogram done today shows severe dilatation of the right heart chambers, severe tricuspid regurgitation, severe pulmonary hypertension with a pulmonary artery systolic pressure greater than 75 mmHg, flattening of the intraventricular septum CONSISTENT with right heart pressure and volume overload. Conversely, the left ventricle is normal in size with well-preserved systolic function, ejection fraction 55%. Recommendations: The patient's shortness of breath, lower extremity edema, hypoxemia are due to chronic pulmonary disease and cor pulmonale. It is also likely that the mild elevation of the liver transaminases represent a congestive hepatopathy associated with the venous hypertension due to the chronic lung diseases. Recommend that she engage pulmonary consultation for follow evaluation for management of the severe lung disease. Left heart chamber size and systolic function normal, clinical presentation is not consistent with left heart failure. Original Note: History of Present Illness Consult date: 04/15/18 Consult reason: congestive heart failure History of present illness: This is a 57 year old woman who is morbidly obese and has asthma that presented to this hospital with complaints of shortness of breath that has progressively worsened over the last few days. Patient denies coughs and congestion. She denies lower extremity edema. There are no reports of palpitations or chest pain. A chest xray done shows no evidence of interstitial edema. Labs most notable for renal failure, creatinine of 4.1. Pro-BNP greater than 27,000. A cardiac consultation was requested for CHF evaluation. Past History Past Medical History: diabetes, hypertension, hyperlipidemia, other (Obesity, Asthma) Medications and Allergies Allergies Allergy/AdvReac Type Severity Reaction Status Date / Time No Known Allergies Allergy Verified 04/14/18 20:41 Home Medications Medication Instructions Recorded Confirmed Last Taken Type Albuterol Sulfate [Proventil Hfa] 2 puff IH Q4-6H PRN 04/14/18 04/14/18 04/14/18 History Losartan/Hydrochlorothiazide 1 each PO QDAY 04/14/18 04/14/18 04/14/18 History [Losartan-Hctz 100-25 mg Tab] Lovastatin [Altoprev] 20 mg PO HS 04/14/18 04/14/18 Unknown History Metformin HCl [Glucophage] 1,000 mg PO BID 04/14/18 04/14/18 04/14/18 History Sitagliptin Phosphate [Januvia] 100 mg PO QDAY 04/14/18 04/14/18 04/14/18 History Active Meds: Active Medications Acetaminophen (Tylenol) 650 mg PO Q4H PRN PRN Reason: Pain MILD(1-3)/Fever >100.5/WHITEHEAD Albuterol (Proventil) 2.5 mg IH Q4HRT PRN PRN Reason: Shortness Of Breath Last Admin: 04/14/18 20:48 Dose: 2.5 mg Documented by: Famotidine (Pepcid) 10 mg PO BID [facility] Heparin Sodium (Porcine) (Heparin) 5,000 unit SUB-Q Q12H [facility] Last Admin: 04/15/18 06:55 Dose: 5,000 unit Documented by: Hydromorphone HCl (Dilaudid) 0.5 mg IV Q3H PRN PRN Reason: Pain , Severe (7-10) Ceftriaxone Sodium (Rocephin/Ns 1 Gm/50 Ml) 1 gm in 50 mls @ 100 mls/hr IV Q24HR [facility]; Protocol Insulin Human Lispro (Humalog) 0 unit SUB-Q ACHS [facility]; Protocol Last Admin: 04/15/18 08:52 Dose: Not Given Documented by: Linagliptin (Tradjenta) 5 mg PO QDAY [facility] Ondansetron HCl (Zofran) 4 mg IV Q8H PRN PRN Reason: Nausea And Vomiting Oxycodone/Acetaminophen (Percocet 5/325) 1 tab PO Q6H PRN PRN Reason: Pain, Moderate (4-6) Pravastatin Sodium (Pravachol) 20 mg PO QHS [facility] Sodium Chloride (Sodium Chloride Flush Syringe 10 Ml) 10 ml IV BID [facility] Sodium Chloride (Sodium Chloride Flush Syringe 10 Ml) 10 ml IV PRN PRN PRN Reason: LINE FLUSH Physical Examination Vital Signs Temp Pulse Resp BP Pulse Ox 97.5 F L 94 H 22 91/56 88 04/14/18 14:26 04/14/18 14:26 04/14/18 14:26 04/14/18 14:26 04/14/18 14:26 General appearance: no acute distress, obese HEENT: Positive: PERRL Cardiac: Positive: Reg Rate and Rhythm Lungs: Positive: Decreased Breath Sounds Neuro: Positive: Grossly Intact Extremities: Absent: edema Results 04/14/18 14:38 04/15/18 04:56 Cardiac Enzymes 04/15/18 Range/Units 04:56 AST 62 H (5-40) units/L Coagulation 04/14/18 Range/Units 14:42 PT 16.2 H (12.2-14.9) Sec. INR 1.26 H (0.87-1.13) APTT 26.6 (24.2-36.6) Sec. CBC 04/14/18 Range/Units 14:38 WBC 14.7 H (4.5-11.0) K/mm3 RBC 4.20 (3.65-5.03) M/mm3 Hgb 10.1 (10.1-14.3) gm/dl Hct 32.4 (30.3-42.9) % Plt Count 415 (140-440) K/mm3 Lymph # 2.4 (1.2-5.4) K/mm3 [place] # 1.3 H (0.0-0.8) K/mm3 Eos # 0.2 (0.0-0.4) K/mm3 Baso # 0.1 (0.0-0.1) K/mm3 Comprehensive Metabolic Panel 04/14/18 04/15/18 Range/Units 14:38 04:56 Sodium 139 136 L (137-145) mmol/L Potassium 4.5 4.7 (3.6-5.0) mmol/L Chloride 99.6 98.2 (98-107) mmol/L Carbon Dioxide 19 L 19 L (22-30) mmol/L BUN 74 H 80 H (7-17) mg/dL Creatinine 4.1 H 4.0 H (0.7-1.2) mg/dL Glucose 138 H 143 H (65-100) mg/dL Calcium 8.9 9.0 (8.4-10.2) mg/dL AST 62 H (5-40) units/L ALT 70 H (7-56) units/L Alkaline Phosphatase 145 H (35-129) units/L Total Protein 7.6 (6.3-8.2) g/dL Albumin 3.5 L (3.9-5) g/dL Assessment and Plan Shortness of breath venous duplex - negative for DVT. Acute renal failure Diabetes Hypertension Morbid obesity We will obtain an echocardiogram for LVEF assessment.
[2018-04-15] MEDS ORDERED: NON-FORMULARY (Sitagliptin Phosphate [Januvia] 100 MG) PO SCH (10:00)
[2018-04-15] MEDS: PEPCID PO SCH ×2 (11:01→22:12)
[2018-04-15] MEDS: TRADJENTA PO SCH (11:02)
[2018-04-15] MEDS: ROCEPHIN/NS 1 GM/50 ML 1 GM/50 ML BAG IV SCH (11:03)
[2018-04-15] MEDS: SODIUM CHLORIDE FLUSH SYRINGE 10 ML IV SCH ×2 (11:04→22:13)
--- NOTE | 2018-04-15 12:16 | Progress Note ---
Assessment and Plan Assessment and plan: Acute kidney injury. Worsening Kidney function Baseline Cr about 28/1.4 in June 2016.Now 74/4.1 Nephrology consulted No [place] [address] Acute CHF exacerbation. BNP extremely elevated Check ECHO for EF Cardiology consulted Idalmis. Hypertension. Continue antidepressant medications. Diabetes mellitus type 2 Continue tradjenta, Accu-Cheks and sliding scale as Asthma. Continue bronchodilators and breathing treatments. DVT prophylaxis. Continue heparin. Hyperlipidemia. Continue statin History Interval history: The patient is a 57 Yo female with history significant for Morbid obesity, DM-2, HTN, HLD and Asthma who presented to the ER with complaint of shortness of breath. The symptom started about 2 weeks ago. Shortness of breath is constant, worsens with physical exertion and decreases with rest. Associated symptoms include dry cough, fatigue and tiredness. She denies chest pain, orthopnea, PND, leg swelling or pain, hemoptysis, dizziness, syncope, fever, chills, dysuria, hematuria or jaundice. Intial BP was 91/56. Labs significant for creatinine 4.1, increased from 1.4 about 2 years ago. Pro-BNP greater than 27,000. Nephrology and cardiology were consulted for further evaluation. No new issues overnight. Hospitalist Physical - Constitutional Vitals: Temp Pulse Resp BP Pulse Ox 98.4 F 86 20 97/58 96 04/14/18 23:43 04/14/18 23:43 04/14/18 23:43 04/14/18 23:43 04/15/18 09:26 General appearance: Present: no acute distress, obese - EENT Eyes: Present: PERRL, EOM intact ENT: hearing intact, clear oral mucosa, dentition normal - Neck Neck: Present: supple, normal ROM - Respiratory Respiratory effort: normal Respiratory: bilateral: CTA - Cardiovascular Rhythm: regular Heart Sounds: Present: S1 & S2. Absent: gallop, rub - Extremities Extremities: no ischemia, No edema, Full ROM - Abdominal General gastrointestinal: soft, non-tender, non-distended, normal bowel sounds - Integumentary Integumentary: Present: clear, warm, dry - Neurologic Neurologic: CNII-XII intact, moves all extremities Results - Labs CBC & Chem 7: 04/14/18 14:38 04/15/18 04:56 Labs: Laboratory Last Values WBC 14.7 K/mm3 (4.5-11.0) H 04/14/18 14:38 RBC 4.20 M/mm3 (3.65-5.03) 04/14/18 14:38 Hgb 10.1 gm/dl (10.1-14.3) 04/14/18 14:38 Hct 32.4 % (30.3-42.9) 04/14/18 14:38 MCV 77 fl (79-97) L 04/14/18 14:38 MCH 24 pg (28-32) L 04/14/18 14:38 MCHC 31 % (30-34) 04/14/18 14:38 RDW 20.2 % (13.2-15.2) H 04/14/18 14:38 Plt Count 415 K/mm3 (140-440) 04/14/18 14:38 Lymph % (Auto) 16.5 % (13.4-35.0) 04/14/18 14:38 [place] % (Auto) 9.0 % (0.0-7.3) H 04/14/18 14:38 Eos % (Auto) 1.6 % (0.0-4.3) 04/14/18 14:38 Baso % (Auto) 0.9 % (0.0-1.8) 04/14/18 14:38 Lymph # 2.4 K/mm3 (1.2-5.4) 04/14/18 14:38 [place] # 1.3 K/mm3 (0.0-0.8) H 04/14/18 14:38 Eos # 0.2 K/mm3 (0.0-0.4) 04/14/18 14:38 Baso # 0.1 K/mm3 (0.0-0.1) 04/14/18 14:38 Seg Neutrophils % 72.0 % (40.0-70.0) H 04/14/18 14:38 Seg Neutrophils # 10.6 K/mm3 (1.8-7.7) H 04/14/18 14:38 PT 16.2 Sec. (12.2-14.9) H 04/14/18 14:42 INR 1.26 (0.87-1.13) H 04/14/18 14:42 APTT 26.6 Sec. (24.2-36.6) 04/14/18 14:42 POC ABG pH 7.343 (7.35-7.45) L 04/14/18 15:51 POC ABG pCO2 35.9 (35-45) 04/14/18 15:51 POC ABG pO2 61 (80-105) L 04/14/18 15:51 POC ABG HCO3 19.5 04/14/18 15:51 POC ABG Total CO2 21 04/14/18 15:51 POC ABG O2 Sat 90 04/14/18 15:51 POC ABG Base Excess -6 04/14/18 15:51 FiO2 21 % 04/14/18 15:51 Sodium 136 mmol/L (137-145) L 04/15/18 04:56 Potassium 4.7 mmol/L (3.6-5.0) 04/15/18 04:56 Chloride 98.2 mmol/L (98-107) 04/15/18 04:56 Carbon Dioxide 19 mmol/L (22-30) L 04/15/18 04:56 Anion Gap 24 mmol/L 04/15/18 04:56 BUN 80 mg/dL (7-17) H 04/15/18 04:56 Creatinine 4.0 mg/dL (0.7-1.2) H 04/15/18 04:56 Estimated GFR 14 ml/min 04/15/18 04:56 BUN/Creatinine Ratio 20 % 04/15/18 04:56 Glucose 143 mg/dL (65-100) H 04/15/18 04:56 POC Glucose 146 (70-105) H 04/15/18 08:04 Hemoglobin A1c 6.7 % (4-6) H 04/15/18 04:56 Calcium 9.0 mg/dL (8.4-10.2) 04/15/18 04:56 Phosphorus 5.90 mg/dL (2.5-4.5) H 04/15/18 04:56 Total Bilirubin 0.70 mg/dL (0.1-1.2) 04/15/18 04:56 AST 62 units/L (5-40) H 04/15/18 04:56 ALT 70 units/L (7-56) H 04/15/18 04:56 Alkaline Phosphatase 145 units/L (35-129) H 04/15/18 04:56 NT-Pro-B Natriuret Pep 38132 pg/mL (0-900) H 04/14/18 14:38 Total Protein 7.6 g/dL (6.3-8.2) 04/15/18 04:56 Albumin 3.5 g/dL (3.9-5) L 04/15/18 04:56 Albumin/Globulin Ratio 0.9 % 04/15/18 04:56 PTH Intact 192.0 pg/mL (15-65) H 04/15/18 04:56
[2018-04-15] MEDS ORDERED: NON-FORMULARY (Lovastatin [Altoprev] 20 MG) PO SCH (22:00)
[2018-04-15] MEDS ORDERED: BENADRYL PO ONE (22:03)
[2018-04-15] MEDS: PRAVACHOL PO SCH (22:12)
[2018-04-16] MEDS: HEPARIN SUB-Q SCH ×2 (06:05→19:54)
[2018-04-16 06:51] LABS: Calcium 8.6 mg/dL (8.4-10.2)
[2018-04-16] MEDS: NACL 0.9% 1000 ML 1,000 ML IV SCH (08:13)
--- NOTE | 2018-04-16 08:29 | Progress Note ---
Assessment and Plan Shortness of breath venous duplex - negative for DVT. Acute renal failure Diabetes Hypertension Morbid obesity An echocardiogram done shows severe dilatation of the right heart chambers, severe tricuspid regurgitation, severe pulmonary hypertension with a pulmonary artery systolic pressure greater than 75 mmHg, flattening of the intrav entricular septum CONSISTENT with right heart pressure and volume overload. Left ventricle is normal in size with well-preserved systolic function, ejection fraction 55%. Recommend: Pulmonary consultation for evaluation and management of the severe lung disease. Otherwise, no further cardiac workup. We will follow intermittently. Subjective Date of service: 04/16/18 Interval history: Patient has no cardiac complaints. Objective Vital Signs Temp Pulse Resp BP Pulse Ox 04/16/18 06:17 87 20 114/79 96 04/15/18 23:42 98.2 F 83 20 102/71 94 04/15/18 22:00 16 04/15/18 20:21 96 04/15/18 16:55 98.4 F 22 103/85 04/15/18 11:49 98.4 F 20 90/62 04/15/18 10:00 20 04/15/18 09:26 96 - Physical Examination General: No Apparent Distress HEENT: Positive: PERRL Neck: Positive: trachea midline Cardiac: Positive: Reg Rate and Rhythm Lungs: Positive: Decreased Breath Sounds Neuro: Positive: Grossly Intact Extremities: Absent: edema - Labs and Meds Comprehensive Metabolic Panel 04/16/18 Range/Units 05:55 Sodium 136 L (137-145) mmol/L Potassium 4.6 (3.6-5.0) mmol/L Chloride 98.8 (98-107) mmol/L Carbon Dioxide 20 L (22-30) mmol/L BUN 84 H (7-17) mg/dL Creatinine 3.1 H (0.7-1.2) mg/dL Glucose 128 H (65-100) mg/dL Calcium 8.6 (8.4-10.2) mg/dL
[2018-04-16] MEDS: HumaLOG SUB-Q SCH ×4 (08:44→23:03)
--- NOTE | 2018-04-16 09:24 | Progress Note ---
Assessment and Plan 1. Acute kidney injury: DMITRY superimposed on CKD in the setting of hypotension. Urines studies pending. Renal US was negative for any hydronephrosis. Antibodies and Complements are pending. Renal function is better with IV fluids. Renal prognosis is guarded. Monitor. 2. FEN: IV fluids. Mild metabolic acidosis. 3. Right sided heart failure: Cor pulmonale. 4. DM-2. Subjective Date of service: 04/16/18 Interval history: Patient is doing ok. No new symptom. Objective - Vital Signs Vital signs: Vital Signs - 12hr 04/15/18 04/15/18 04/16/18 22:00 23:42 06:17 Temperature 98.2 F Pulse Rate 83 87 Respiratory 16 20 20 Rate Blood Pressure 102/71 114/79 O2 Sat by Pulse 94 96 Oximetry - General Appearance General appearance: well-developed, well-nourished, appears stated age, obese, other (not in distress) EENT: ATNC, PERRL, mucous membranes moist, hearing intact, vision intact Neck: JVD, supple Respiratory: Present: Clear to Ascultation Cardiology: regular, S1S2, no murmurs Gastrointestinal: normoactive bowel sounds, no tenderness, no distended, obese Integumentary: no rash, warm and dry Neurologic: no focal deficit, no asterixis, alert and oriented x3 Musculoskeletal: other (trace LE edema noted) - Lab 04/14/18 14:38 04/16/18 05:55 Most recent lab results Calcium 8.6 mg/dL (8.4-10.2) 04/16/18 05:55 Phosphorus 5.90 mg/dL (2.5-4.5) H 04/15/18 04:56 Medications & Allergies - Medications Allergies/Adverse Reactions: Allergies No Known Allergies Allergy (Verified 04/14/18 20:41) Home Medications: Home Medications Medication Instructions Recorded Confirmed Last Taken Type Albuterol Sulfate [Proventil Hfa] 2 puff IH Q4-6H PRN 04/14/18 04/14/18 04/14/18 History Losartan/Hydrochlorothiazide 1 each PO QDAY 04/14/18 04/14/18 04/14/18 History [Losartan-Hctz 100-25 mg Tab] Lovastatin [Altoprev] 20 mg PO HS 04/14/18 04/14/18 Unknown History Metformin HCl [Glucophage] 1,000 mg PO BID 04/14/18 04/14/18 04/14/18 History Sitagliptin Phosphate [Januvia] 100 mg PO QDAY 04/14/18 04/14/18 04/14/18 History Active Medications: Generic Name Dose Route Start Last Admin Trade Name Freq PRN Reason Stop Dose Admin Acetaminophen 650 mg 04/15/18 01:00 Tylenol PO Q4H PRN Pain MILD(1-3)/Fever >100.5/WHITEHEAD Albuterol 2.5 mg 04/14/18 20:39 04/14/18 20:48 Proventil IH 2.5 mg Q4HRT PRN Administration Shortness Of Breath Famotidine 10 mg 04/15/18 10:00 04/15/18 22:12 Pepcid PO 10 mg BID PAUL Administration Heparin Sodium (Porcine) 5,000 unit 04/15/18 06:00 04/16/18 06:05 Heparin SUB-Q 5,000 unit Q12H PAUL Administration Hydromorphone HCl 0.5 mg 04/15/18 01:00 Dilaudid IV Q3H PRN Pain , Severe (7-10) Ceftriaxone Sodium 1 gm in 50 mls @ 100 mls/hr 04/15/18 10:00 04/15/18 11:03 Rocephin/Ns 1 Gm/50 Ml IV 100 mls/hr Q24HR PAUL Administration Protocol Sodium Chloride 1,000 mls @ 75 mls/hr 04/15/18 22:00 04/16/18 08:13 Nacl 0.9% 1000 Ml IV 75 mls/hr DIRECT PAUL Administration Insulin Human Lispro 0 unit 04/15/18 07:30 04/16/18 08:44 Humalog SUB-Q Not Given ACHS PAUL Protocol Linagliptin 5 mg 04/15/18 10:00 04/15/18 11:02 Tradjenta PO 5 mg QDAY PAUL Administration Ondansetron HCl 4 mg 04/15/18 01:00 Zofran IV Q8H PRN Nausea And Vomiting Oxycodone/Acetaminophen 1 tab 04/15/18 01:00 04/15/18 22:12 Percocet 5/325 PO 1 tab Q6H PRN Administration Pain, Moderate (4-6) Pravastatin Sodium 20 mg 04/15/18 22:00 04/15/18 22:12 Pravachol PO 20 mg QHS PAUL Administration Sodium Chloride 10 ml 04/15/18 10:00 04/15/18 22:13 Sodium Chloride Flush Syringe 10 Ml IV 10 ml BID PAUL Administration Sodium Chloride 10 ml 04/15/18 01:00 Sodium Chloride Flush Syringe 10 Ml IV PRN PRN LINE FLUSH
[2018-04-16] MEDS: TRADJENTA PO SCH (09:41)
[2018-04-16] MEDS: PEPCID PO SCH ×2 (09:41→23:00)
[2018-04-16] MEDS: SODIUM CHLORIDE FLUSH SYRINGE 10 ML IV SCH ×2 (09:42→23:01)
--- NOTE | 2018-04-16 10:13 | Progress Note ---
Assessment and Plan Assessment and plan: Acute kidney injury. Worsening Kidney function Baseline Cr about 28/1.4 in June 2016. Improved slightly. Nephrology following No IV [place] [id number] Cor pulmonale. Echocardiogram revealed severe cor pulmonale with severely dilated right heart chambers, severe TR, severe pulmonary hypertension, flattened IV septum consisitent with right heart pressure and volume overload. Left ventricular systolic function is normal limits with an EF of 50-55%. Pulmonary consultation. Consider CTEPH. However, given renal function, unable to obtain CTA of the chest. Doppler ultrasounds were negative for DVT. Consider VQ scan. Hypertension. Continue antidepressant medications. Diabetes mellitus type 2 Continue tradjenta, Accu-Cheks and sliding scale as Asthma. Continue bronchodilators and breathing treatments. DVT prophylaxis. Continue heparin. Hyperlipidemia. Continue statin History Interval history: The patient is a 57 Yo female with history significant for Morbid obesity, DM-2, HTN, HLD and Asthma who presented to the ER with complaint of shortness of ramiro th. The symptom started about 2 weeks ago. Shortness of breath is constant, worsens with physical exertion and decreases with rest. Associated symptoms include dry cough, fatigue and tiredness. She denies chest pain, orthopnea, PND, leg swelling or pain, hemoptysis, dizziness, syncope, fever, chills, dysuria, hematuria or jaundice. Intial BP was 91/56. Labs significant for creatinine 4.1, increased from 1.4 about 2 years ago. Pro-BNP greater than 27,000. Nephrology and cardiology were consulted for further evaluation. No new issues overnight. Hospitalist Physical - Constitutional Vitals: Temp Pulse Resp BP Pulse Ox 98.2 F 87 20 114/79 96 04/15/18 23:42 04/16/18 06:17 04/16/18 06:17 04/16/18 06:17 04/16/18 06:17 General appearance: Present: no acute distress, obese - EENT Eyes: Present: PERRL, EOM intact ENT: hearing intact, clear oral mucosa, dentition normal - Neck Neck: Present: supple, normal ROM - Respiratory Respiratory effort: normal Respiratory: bilateral: CTA - Cardiovascular Rhythm: regular Heart Sounds: Present: S1 & S2. Absent: gallop, rub - Extremities Extremities: no ischemia, No edema, Full ROM - Abdominal General gastrointestinal: soft, non-tender, non-distended, normal bowel sounds - Integumentary Integumentary: Present: clear, warm, dry - Neurologic Neurologic: CNII-XII intact, moves all extremities Results - Labs CBC & Chem 7: 04/14/18 14:38 04/16/18 05:55 Labs: Laboratory Last Values WBC 14.7 K/mm3 (4.5-11.0) H 04/14/18 14:38 RBC 4.20 M/mm3 (3.65-5.03) 04/14/18 14:38 Hgb 10.1 gm/dl (10.1-14.3) 04/14/18 14:38 Hct 32.4 % (30.3-42.9) 04/14/18 14:38 MCV 77 fl (79-97) L 04/14/18 14:38 MCH 24 pg (28-32) L 04/14/18 14:38 MCHC 31 % (30-34) 04/14/18 14:38 RDW 20.2 % (13.2-15.2) H 04/14/18 14:38 Plt Count 415 K/mm3 (140-440) 04/14/18 14:38 Lymph % (Auto) 16.5 % (13.4-35.0) 04/14/18 14:38 Rich % (Auto) 9.0 % (0.0-7.3) H 04/14/18 14:38 Eos % (Auto) 1.6 % (0.0-4.3) 04/14/18 14:38 Baso % (Auto) 0.9 % (0.0-1.8) 04/14/18 14:38 Lymph # 2.4 K/mm3 (1.2-5.4) 04/14/18 14:38 Rich # 1.3 K/mm3 (0.0-0.8) H 04/14/18 14:38 Eos # 0.2 K/mm3 (0.0-0.4) 04/14/18 14:38 Baso # 0.1 K/mm3 (0.0-0.1) 04/14/18 14:38 Seg Neutrophils % 72.0 % (40.0-70.0) H 04/14/18 14:38 Seg Neutrophils # 10.6 K/mm3 (1.8-7.7) H 04/14/18 14:38 PT 16.2 Sec. (12.2-14.9) H 04/14/18 14:42 INR 1.26 (0.87-1.13) H 04/14/18 14:42 APTT 26.6 Sec. (24.2-36.6) 04/14/18 14:42 POC ABG pH 7.343 (7.35-7.45) L 04/14/18 15:51 POC ABG pCO2 35.9 (35-45) 04/14/18 15:51 POC ABG pO2 61 (80-105) L 04/14/18 15:51 POC ABG HCO3 19.5 04/14/18 15:51 POC ABG Total CO2 21 04/14/18 15:51 POC ABG O2 Sat 90 04/14/18 15:51 POC ABG Base Excess -6 04/14/18 15:51 FiO2 21 % 04/14/18 15:51 Sodium 136 mmol/L (137-145) L 04/16/18 05:55 Potassium 4.6 mmol/L (3.6-5.0) 04/16/18 05:55 Chloride 98.8 mmol/L (98-107) 04/16/18 05:55 Carbon Dioxide 20 mmol/L (22-30) L 04/16/18 05:55 Anion Gap 22 mmol/L 04/16/18 05:55 BUN 84 mg/dL (7-17) H 04/16/18 05:55 Creatinine 3.1 mg/dL (0.7-1.2) H 04/16/18 05:55 Estimated GFR 19 ml/min 04/16/18 05:55 BUN/Creatinine Ratio 27 % 04/16/18 05:55 Glucose 128 mg/dL (65-100) H 04/16/18 05:55 POC Glucose 135 (70-105) H 04/16/18 08:39 Hemoglobin A1c 6.7 % (4-6) H 04/15/18 04:56 Calcium 8.6 mg/dL (8.4-10.2) 04/16/18 05:55 Phosphorus 5.90 mg/dL (2.5-4.5) H 04/15/18 04:56 Total Bilirubin 0.70 mg/dL (0.1-1.2) 04/15/18 04:56 AST 62 units/L (5-40) H 04/15/18 04:56 ALT 70 units/L (7-56) H 04/15/18 04:56 Alkaline Phosphatase 145 units/L (35-129) H 04/15/18 04:56 NT-Pro-B Natriuret Pep 78178 pg/mL (0-900) H 04/14/18 14:38 Total Protein 7.6 g/dL (6.3-8.2) 04/15/18 04:56 Albumin 3.5 g/dL (3.9-5) L 04/15/18 04:56 Albumin/Globulin Ratio 0.9 % 04/15/18 04:56 PTH Intact 192.0 pg/mL (15-65) H 04/15/18 04:56
[2018-04-16] MEDS: ROCEPHIN/NS 1 GM/50 ML 1 GM/50 ML BAG IV SCH (10:47)
[2018-04-16] MEDS: PRAVACHOL PO SCH (23:00)
[2018-04-17 04:55] LABS: Calcium 8.3 mg/dL (8.4-10.2)
[2018-04-17] MEDS: HEPARIN SUB-Q SCH (05:39)
[2018-04-17] MEDS: HumaLOG SUB-Q SCH ×3 (08:08→18:00)
[2018-04-17] MEDS: TRADJENTA PO SCH (09:26)
[2018-04-17] MEDS: PEPCID PO SCH ×2 (09:26→23:15)
--- NOTE | 2018-04-17 09:45 | Progress Note ---
Assessment and Plan 1. Acute kidney injury: DMITRY superimposed on CKD in the setting of hypotension. Renal US was negative for any hydronephrosis. Antibodies and Complements are pending. Renal function is improving with IV fluids. Urines studies pending. Monitor. 2. FEN: IV fluids. Mild metabolic acidosis, improving. 3. Right sided heart failure: Cor pulmonale. 4. DM-2. Subjective Date of service: 04/17/18 Interval history: Patient is doing ok. No new symptom. Objective - Vital Signs Vital signs: Vital Signs - 12hr 04/16/18 04/16/18 04/17/18 22:00 23:21 05:17 Temperature 98.2 F 98.2 F Pulse Rate 88 74 Respiratory 20 16 16 Rate Blood Pressure 90/52 94/59 O2 Sat by Pulse 94 90 Oximetry 04/17/18 09:43 Temperature Pulse Rate Respiratory Rate Blood Pressure O2 Sat by Pulse 95 Oximetry - General Appearance General appearance: well-developed, well-nourished, appears stated age, obese, other (not in distress) EENT: ATNC, PERRL, mucous membranes moist, hearing intact, vision intact Neck: JVD, supple Respiratory: Present: Clear to Ascultation Cardiology: regular, S1S2, no murmurs Gastrointestinal: normoactive bowel sounds, no tenderness, no distended, obese Integumentary: no rash, warm and dry Neurologic: no focal deficit, no asterixis, alert and oriented x3 Musculoskeletal: other (trace LE edema noted) - Lab 04/14/18 14:38 04/17/18 03:51 Most recent lab results Calcium 8.3 mg/dL (8.4-10.2) L 04/17/18 03:51 Phosphorus 5.90 mg/dL (2.5-4.5) H 04/15/18 04:56 Medications & Allergies - Medications Allergies/Adverse Reactions: Allergies No Known Allergies Allergy (Verified 04/14/18 20:41) Home Medications: Home Medications Medication Instructions Recorded Confirmed Last Taken Type Albuterol Sulfate [Proventil Hfa] 2 puff IH Q4-6H PRN 04/14/18 04/14/18 04/14/18 History Losartan/Hydrochlorothiazide 1 each PO QDAY 04/14/18 04/14/18 04/14/18 History [Losartan-Hctz 100-25 mg Tab] Lovastatin [Altoprev] 20 mg PO HS 04/14/18 04/14/18 Unknown History Metformin HCl [Glucophage] 1,000 mg PO BID 04/14/18 04/14/18 04/14/18 History Sitagliptin Phosphate [Januvia] 100 mg PO QDAY 04/14/18 04/14/18 04/14/18 History Active Medications: Generic Name Dose Route Start Last Admin Trade Name Freq PRN Reason Stop Dose Admin Acetaminophen 650 mg 04/15/18 01:00 Tylenol PO Q4H PRN Pain MILD(1-3)/Fever >100.5/WHITEHEAD Albuterol 2.5 mg 04/14/18 20:39 04/14/18 20:48 Proventil IH 2.5 mg Q4HRT PRN Administration Shortness Of Breath Famotidine 10 mg 04/15/18 10:00 04/17/18 09:26 Pepcid PO 10 mg BID PAUL Administration Heparin Sodium (Porcine) 5,000 unit 04/15/18 06:00 04/17/18 05:39 Heparin SUB-Q 5,000 unit Q12H PAUL Administration Hydromorphone HCl 0.5 mg 04/15/18 01:00 Dilaudid IV Q3H PRN Pain , Severe (7-10) Ceftriaxone Sodium 1 gm in 50 mls @ 100 mls/hr 04/15/18 10:00 04/16/18 10:47 Rocephin/Ns 1 Gm/50 Ml IV 100 mls/hr Q24HR PAUL Administration Protocol Sodium Chloride 1,000 mls @ 75 mls/hr 04/15/18 22:00 04/16/18 08:13 Nacl 0.9% 1000 Ml IV 75 mls/hr DIRECT PAUL Administration Insulin Human Lispro 0 unit 04/15/18 07:30 04/17/18 08:08 Humalog SUB-Q Not Given ACHS PAUL Protocol Linagliptin 5 mg 04/15/18 10:00 04/17/18 09:26 Tradjenta PO 5 mg QDAY PAUL Administration Ondansetron HCl 4 mg 04/15/18 01:00 Zofran IV Q8H PRN Nausea And Vomiting Oxycodone/Acetaminophen 1 tab 04/15/18 01:00 04/15/18 22:12 Percocet 5/325 PO 1 tab Q6H PRN Administration Pain, Moderate (4-6) Pravastatin Sodium 20 mg 04/15/18 22:00 04/16/18 23:00 Pravachol PO 20 mg QHS PAUL Administration Sodium Chloride 10 ml 04/15/18 10:00 04/16/18 23:01 Sodium Chloride Flush Syringe 10 Ml IV 10 ml BID PAUL Administration Sodium Chloride 10 ml 04/15/18 01:00 Sodium Chloride Flush Syringe 10 Ml IV PRN PRN LINE FLUSH
--- NOTE | 2018-04-17 10:57 | Progress Note ---
Addendum entered and electronically signed by GLEN SOUSA MD 04/17/18 11:05: Pulmonary evaluation for the management of chronic severe pulmonary hypertension, right heart failure and cor pulmonale. Original Note: Assessment and Plan Shortness of breath venous duplex - negative for DVT. Acute renal failure Diabetes Hypertension Morbid obesity An echocardiogram done shows severe dilatation of the right heart chambers, severe tricuspid regurgitation, severe pulmonary hypertension with a pulmonary artery systolic pressure greater than 75 mmHg, flattening of the intraventricular septum CONSISTENT with right heart pressure and volume overload. Left ventricle is normal in size with well-preserved systolic functi on, ejection fraction 55%. Recommend: Pulmonary consultation for evaluation and management of the severe lung disease. Otherwise, conservative cardiac management. Subjective Date of service: 04/17/18 Interval history: Patient has no cardiac complaints. Objective Vital Signs Temp Pulse Resp BP Pulse Ox 04/17/18 09:43 95 04/17/18 05:17 98.2 F 74 16 94/59 90 04/16/18 23:21 98.2 F 88 16 90/52 94 04/16/18 22:00 20 04/16/18 18:25 97.7 F 83 24 104/73 96 04/16/18 12:12 97.6 F 85 22 106/70 94 - Physical Examination General: No Apparent Distress HEENT: Positive: PERRL Neck: Positive: trachea midline Cardiac: Positive: Reg Rate and Rhythm Lungs: Positive: Decreased Breath Sounds Neuro: Positive: Grossly Intact Extremities: Absent: edema - Labs and Meds Comprehensive Metabolic Panel 04/17/18 Range/Units 03:51 Sodium 138 (137-145) mmol/L Potassium 4.2 (3.6-5.0) mmol/L Chloride 102.9 (98-107) mmol/L Carbon Dioxide 22 (22-30) mmol/L BUN 71 H (7-17) mg/dL Creatinine 1.8 H (0.7-1.2) mg/dL Glucose 119 H (65-100) mg/dL Calcium 8.3 L (8.4-10.2) mg/dL
[2018-04-17] MEDS: NACL 0.9% 1000 ML 1,000 ML IV SCH ×2 (11:14→23:33)
[2018-04-17] MEDS: ROCEPHIN/NS 1 GM/50 ML 1 GM/50 ML BAG IV SCH (11:14)
[2018-04-17] MEDS: SODIUM CHLORIDE FLUSH SYRINGE 10 ML IV SCH ×2 (11:15→23:18)
--- NOTE | 2018-04-17 11:46 | Progress Note ---
Assessment and Plan Assessment and plan: Acute kidney injury. Worsening Kidney function Baseline Cr about 28/1.4 in June 2016. Improved slightly. Nephrology following No [place] [id number] Cor pulmonale. Echocardiogram revealed severe cor pulmonale with severely dilated right heart chambers, severe TR, severe pulmonary hypertension, flattened IV septum consisitent with right heart pressure and volume overload. Left ventricular systolic function is normal limits with an EF of 50-55%. Pulmonary consultation. Consider CTEPH. However, given renal function, unable to obtain CTA of the chest. Doppler ultrasounds were negative for DVT. Consider VQ scan. Await pulmonary consultation. Hypertension. Continue antidepressant medications. Diabetes mellitus type 2 Continue tradjenta, Accu-Cheks and sliding scale as Asthma. Continue bronchodilators and breathing treatments. DVT prophylaxis. Continue heparin. Hyperlipidemia. Continue statin History Interval history: The patient is a 57 Yo female with history significant for Morbid obesity, DM-2, HTN, HLD and Asthma who presented to the ER with complaint of shortness of breath. The symptom started about 2 weeks ago. Shortness of breath is c onstant, worsens with physical exertion and decreases with rest. Associated symptoms include dry cough, fatigue and tiredness. She denies chest pain, orthopnea, PND, leg swelling or pain, hemoptysis, dizziness, syncope, fever, chills, dysuria, hematuria or jaundice. Intial BP was 91/56. Labs significant for creatinine 4.1, increased from 1.4 about 2 years ago. Pro-BNP greater than 27,000. Nephrology and cardiology were consulted for further evaluation. No new issues overnight. Hospitalist Physical - Constitutional Vitals: Temp Pulse Resp BP Pulse Ox 98.2 F 74 16 94/59 95 04/17/18 05:17 04/17/18 05:17 04/17/18 05:17 04/17/18 05:17 04/17/18 09:43 General appearance: Present: no acute distress, obese - EENT Eyes: Present: PERRL, EOM intact ENT: hearing intact, clear oral mucosa, dentition normal - Neck Neck: Present: supple, normal ROM - Respiratory Respiratory effort: normal Respiratory: bilateral: CTA - Cardiovascular Rhythm: regular Heart Sounds: Present: S1 & S2. Absent: gallop, rub - Extremities Extremities: no ischemia, No edema, Full ROM - Abdominal General gastrointestinal: soft, non-tender, non-distended, normal bowel sounds - Integumentary Integumentary: Present: clear, warm, dry - Neurologic Neurologic: CNII-XII intact, moves all extremities Results - Labs CBC & Chem 7: 04/14/18 14:38 04/17/18 03:51 Labs: Laboratory Last Values WBC 14.7 K/mm3 (4.5-11.0) H 04/14/18 14:38 RBC 4.20 M/mm3 (3.65-5.03) 04/14/18 14:38 Hgb 10.1 gm/dl (10.1-14.3) 04/14/18 14:38 Hct 32.4 % (30.3-42.9) 04/14/18 14:38 MCV 77 fl (79-97) L 04/14/18 14:38 MCH 24 pg (28-32) L 04/14/18 14:38 MCHC 31 % (30-34) 04/14/18 14:38 RDW 20.2 % (13.2-15.2) H 04/14/18 14:38 Plt Count 415 K/mm3 (140-440) 04/14/18 14:38 Lymph % (Auto) 16.5 % (13.4-35.0) 04/14/18 14:38 [place] % (Auto) 9.0 % (0.0-7.3) H 04/14/18 14:38 Eos % (Auto) 1.6 % (0.0-4.3) 04/14/18 14:38 Baso % (Auto) 0.9 % (0.0-1.8) 04/14/18 14:38 Lymph # 2.4 K/mm3 (1.2-5.4) 04/14/18 14:38 [place] # 1.3 K/mm3 (0.0-0.8) H 04/14/18 14:38 Eos # 0.2 K/mm3 (0.0-0.4) 04/14/18 14:38 Baso # 0.1 K/mm3 (0.0-0.1) 04/14/18 14:38 Seg Neutrophils % 72.0 % (40.0-70.0) H 04/14/18 14:38 Seg Neutrophils # 10.6 K/mm3 (1.8-7.7) H 04/14/18 14:38 PT 16.2 Sec. (12.2-14.9) H 04/14/18 14:42 INR 1.26 (0.87-1.13) H 04/14/18 14:42 APTT 26.6 Sec. (24.2-36.6) 04/14/18 14:42 POC ABG pH 7.343 (7.35-7.45) L 04/14/18 15:51 POC ABG pCO2 35.9 (35-45) 04/14/18 15:51 POC ABG pO2 61 (80-105) L 04/14/18 15:51 POC ABG HCO3 19.5 04/14/18 15:51 POC ABG Total CO2 21 04/14/18 15:51 POC ABG O2 Sat 90 04/14/18 15:51 POC ABG Base Excess -6 04/14/18 15:51 FiO2 21 % 04/14/18 15:51 Sodium 138 mmol/L (137-145) 04/17/18 03:51 Potassium 4.2 mmol/L (3.6-5.0) 04/17/18 03:51 Chloride 102.9 mmol/L (98-107) 04/17/18 03:51 Carbon Dioxide 22 mmol/L (22-30) 04/17/18 03:51 Anion Gap 17 mmol/L 04/17/18 03:51 BUN 71 mg/dL (7-17) H 04/17/18 03:51 Creatinine 1.8 mg/dL (0.7-1.2) H 04/17/18 03:51 Estimated GFR 35 ml/min 04/17/18 03:51 BUN/Creatinine Ratio 39 % 04/17/18 03:51 Glucose 119 mg/dL (65-100) H 04/17/18 03:51 POC Glucose 120 (70-105) H 04/17/18 08:09 Hemoglobin A1c 6.7 % (4-6) H 04/15/18 04:56 Calcium 8.3 mg/dL (8.4-10.2) L 04/17/18 03:51 Phosphorus 5.90 mg/dL (2.5-4.5) H 04/15/18 04:56 Total Bilirubin 0.70 mg/dL (0.1-1.2) 04/15/18 04:56 AST 62 units/L (5-40) H 04/15/18 04:56 ALT 70 units/L (7-56) H 04/15/18 04:56 Alkaline Phosphatase 145 units/L (35-129) H 04/15/18 04:56 NT-Pro-B Natriuret Pep 14269 pg/mL (0-900) H 04/14/18 14:38 Total Protein 7.6 g/dL (6.3-8.2) 04/15/18 04:56 Albumin 3.5 g/dL (3.9-5) L 04/15/18 04:56 Albumin/Globulin Ratio 0.9 % 04/15/18 04:56 PTH Intact 192.0 pg/mL (15-65) H 04/15/18 04:56
--- NOTE | 2018-04-17 13:58 | Consultation ---
History of Present Illness Consult date: 04/17/18 Requesting physician: EULA CAROLINA Reason for consult: other (Cor Pulmonale) History of present illness: PULMONARY/CCM CONSULT NOTE (Full dictation # [id number]) Please see dictated notes for full details Past History Past Medical History: diabetes, hypertension, hyperlipidemia, other (Obesity, Asthma) Medications and Allergies Allergies Allergy/AdvReac Type Severity Reaction Status Date / Time No Known Allergies Allergy Verified 04/14/18 20:41 Home Medications Medication Instructions Recorded Confirmed Last Taken Type Albuterol Sulfate [Proventil Hfa] 2 puff IH Q4-6H PRN 04/14/18 04/14/18 04/14/18 History Losartan/Hydrochlorothiazide 1 each PO QDAY 04/14/18 04/14/18 04/14/18 History [Losartan-Hctz 100-25 mg Tab] Lovastatin [Altoprev] 20 mg PO HS 04/14/18 04/14/18 Unknown History Metformin HCl [Glucophage] 1,000 mg PO BID 04/14/18 04/14/18 04/14/18 History Sitagliptin Phosphate [Januvia] 100 mg PO QDAY 04/14/18 04/14/18 04/14/18 Histor y Active Meds: Active Medications Acetaminophen (Tylenol) 650 mg PO Q4H PRN PRN Reason: Pain MILD(1-3)/Fever >100.5/WHITEHEAD Albuterol (Proventil) 2.5 mg IH Q4HRT PRN PRN Reason: Shortness Of Breath Last Admin: 04/14/18 20:48 Dose: 2.5 mg Documented by: Famotidine (Pepcid) 10 mg PO BID [facility] Last Admin: 04/17/18 09:26 Dose: 10 mg Documented by: Heparin Sodium (Porcine) (Heparin) 5,000 unit SUB-Q Q12H PAUL Last Admin: 04/17/18 05:39 Dose: 5,000 unit Documented by: Hydromorphone HCl (Dilaudid) 0.5 mg IV Q3H PRN PRN Reason: Pain , Severe (7-10) Ceftriaxone Sodium (Rocephin/Ns 1 Gm/50 Ml) 1 gm in 50 mls @ 100 mls/hr IV Q24HR PAUL; Protocol Last Admin: 04/17/18 11:14 Dose: 100 mls/hr Documented by: Sodium Chloride (Nacl 0.9% 1000 Ml) 1,000 mls @ 75 mls/hr IV DIRECT [facility] Last Admin: 04/17/18 11:14 Dose: 75 mls/hr Documented by: Insulin Human Lispro (Humalog) 0 unit SUB-Q ACHS [facility]; Protocol Last Admin: 04/17/18 13:33 Dose: 2 unit Documented by: Linagliptin (Tradjenta) 5 mg PO QDAY [facility] Last Admin: 04/17/18 09:26 Dose: 5 mg Documented by: Ondansetron HCl (Zofran) 4 mg IV Q8H PRN PRN Reason: Nausea And Vomiting Oxycodone/Acetaminophen (Percocet 5/325) 1 tab PO Q6H PRN PRN Reason: Pain, Moderate (4-6) Last Admin: 04/15/18 22:12 Dose: 1 tab Documented by: Pravastatin Sodium (Pravachol) 20 mg PO QHS [facility] Last Admin: 04/16/18 23:00 Dose: 20 mg Documented by: Sodium Chloride (Sodium Chloride Flush Syringe 10 Ml) 10 ml IV BID [facility] Last Admin: 04/17/18 11:15 Dose: Not Given Documented by: Sodium Chloride (Sodium Chloride Flush Syringe 10 Ml) 10 ml IV PRN PRN PRN Reason: LINE FLUSH Physical Examination Vital signs: Vital Signs Temp Pulse Resp BP Pulse Ox 97.5 F L 94 H 22 91/56 88 04/14/18 14:26 04/14/18 14:26 04/14/18 14:26 04/14/18 14:26 04/14/18 14:26 Results - Laboratory Findings CBC and BMP: 04/14/18 14:38 04/17/18 03:51 ABG POC ABG pH 7.343 (7.35-7.45) L 04/14/18 15:51 POC ABG pCO2 35.9 (35-45) 04/14/18 15:51 POC ABG pO2 61 (80-105) L 04/14/18 15:51 POC ABG HCO3 19.5 04/14/18 15:51 POC ABG Total CO2 21 04/14/18 15:51 POC ABG O2 Sat 90 04/14/18 15:51 PT/INR, D-dimer PT 16.2 Sec. (12.2-14.9) H 04/14/18 14:42 INR 1.26 (0.87-1.13) H 04/14/18 14:42 Abnormal lab findings: Abnormal Labs 04/14/18 04/14/18 04/14/18 14:38 14:38 14:38 WBC 14.7 H MCV 77 L MCH 24 L RDW 20.2 H [place] % (Auto) 9.0 H [place] # 1.3 H Seg Neutrophils % 72.0 H Seg Neutrophils # 10.6 H PT INR POC ABG pH POC ABG pO2 Sodium Carbon Dioxide 19 L BUN 74 H Creatinine 4.1 H Glucose 138 H POC Glucose Hemoglobin A1c Calcium Phosphorus AST ALT Alkaline Phosphatase NT-Pro-B Natriuret Pep 23224 H Albumin PTH Intact 04/14/18 04/14/18 04/14/18 14:42 15:51 22:18 WBC MCV MCH RDW [place] % (Auto) [place] # Seg Neutrophils % Seg Neutrophils # PT 16.2 H INR 1.26 H POC ABG pH 7.343 L POC ABG pO2 61 L Sodium Carbon Dioxide BUN Creatinine Glucose POC Glucose 169 H Hemoglobin A1c Calcium Phosphorus AST ALT Alkaline Phosphatase NT-Pro-B Natriuret Pep Albumin PTH Intact 04/15/18 04/15/18 04/15/18 04:56 04:56 04:56 WBC MCV MCH RDW [place] % (Auto) [place] # Seg Neutrophils % Seg Neutrophils # PT INR POC ABG pH POC ABG pO2 Sodium 136 L Carbon Dioxide 19 L BUN 80 H Creatinine 4.0 H Glucose 143 H POC Glucose Hemoglobin A1c 6.7 H Calcium Phosphorus 5.90 H AST 62 H ALT 70 H Alkaline Phosphatase 145 H NT-Pro-B Natriuret Pep Albumin 3.5 L PTH Intact 192.0 H 04/15/18 04/15/18 04/15/18 08:04 11:51 17:34 WBC MCV MCH RDW [place] % (Auto) [place] # Seg Neutrophils % Seg Neutrophils # PT INR POC ABG pH POC ABG pO2 Sodium Carbon Dioxide BUN Creatinine Glucose POC Glucose 146 H 169 H 144 H Hemoglobin A1c Calcium Phosphorus AST ALT Alkaline Phosphatase NT-Pro-B Natriuret Pep Albumin PTH Intact 04/15/18 04/16/18 04/16/18 22:16 05:55 08:39 WBC MCV MCH RDW [place] % (Auto) [place] # Seg Neutrophils % Seg Neutrophils # PT INR POC ABG pH POC ABG pO2 Sodium 136 L Carbon Dioxide 20 L BUN 84 H Creatinine 3.1 H Glucose 128 H POC Glucose 150 H 135 H Hemoglobin A1c Calcium Phosphorus AST ALT Alkaline Phosphatase NT-Pro-B Natriuret Pep Albumin PTH Intact 04/16/18 04/16/18 04/16/18 12:17 16:30 20:40 WBC MCV MCH RDW [place] % (Auto) [place] # Seg Neutrophils % Seg Neutrophils # PT INR POC ABG pH POC ABG pO2 Sodium Carbon Dioxide BUN Creatinine Glucose POC Glucose 189 H 136 H 161 H Hemoglobin A1c Calcium Phosphorus AST ALT Alkaline Phosphatase NT-Pro-B Natriuret Pep Albumin PTH Intact 04/17/18 04/17/18 04/17/18 03:51 08:09 12:13 WBC MCV MCH RDW [place] % (Auto) [place] # Seg Neutrophils % Seg Neutrophils # PT INR POC ABG pH POC ABG pO2 Sodium Carbon Dioxide BUN 71 H Creatinine 1.8 H Glucose 119 H POC Glucose 120 H 160 H Hemoglobin A1c Calcium 8.3 L Phosphorus AST ALT Alkaline Phosphatase NT-Pro-B Natriuret Pep Albumin PTH Intact
[2018-04-17] MEDS: PRAVACHOL PO SCH (23:15)
[2018-04-18] MEDS: HumaLOG SUB-Q SCH ×5 (01:35→22:57)
--- NOTE | 2018-04-18 08:50 | Progress Note ---
Assessment and Plan 1. Acute kidney injury: DMITRY superimposed on CKD in the setting of hypotension. Renal US was negative for any hydronephrosis. Antibodies and Complements are pending. Renal function is improving with IV fluids. Urines studies pending. No labs today. Monitor. 2. FEN: IV fluids. Mild metabolic acidosis, improving. 3. Right sided heart failure: Cor pulmonale. 4. DM-2. Subjective Date of service: 04/18/18 Interval history: Patient is doing ok. No new symptom. Objective - Vital Signs Vital signs: Vital Signs - 12hr 04/17/18 04/17/18 04/18/18 21:38 22:00 05:05 Temperature 97.8 F 98.4 F Pulse Rate 87 80 Respiratory 20 20 Rate Blood Pressure 91/56 96/64 O2 Sat by Pulse 94 94 95 Oximetry - General Appearance General appearance: well-developed, well-nourished, appears stated age, obese, other (not in distress) EENT: ATNC, PERRL, mucous membranes moist, hearing intact, vision intact Neck: JVD, supple Respiratory: Present: Clear to Ascultation Cardiology: regular, S1S2, no murmurs Gastrointestinal: normoactive bowel sounds, no tenderness, no distended, obese Integumentary: no rash, warm and dry Neurologic: no focal deficit, no asterixis, alert and oriented x3 Musculoskeletal: other (trace LE edema noted) - Lab 04/14/18 14:38 04/17/18 03:51 Most recent lab results Calcium 8.3 mg/dL (8.4-10.2) L 04/17/18 03:51 Phosphorus 5.90 mg/dL (2.5-4.5) H 04/15/18 04:56 Medications & Allergies - Medications Allergies/Adverse Reactions: Allergies No Known Allergies Allergy (Verified 04/14/18 20:41) Home Medications: Home Medications Medication Instructions Recorded Confirmed Last Taken Type Albuterol Sulfate [Proventil Hfa] 2 puff IH Q4-6H PRN 04/14/18 04/14/18 04/14/18 History Losartan/Hydrochlorothiazide 1 each PO QDAY 04/14/18 04/14/18 04/14/18 History [Losartan-Hctz 100-25 mg Tab] Lovastatin [Altoprev] 20 mg PO HS 04/14/18 04/14/18 Unknown History Metformin HCl [Glucophage] 1,000 mg PO BID 04/14/18 04/14/18 04/14/18 History Sitagliptin Phosphate [Januvia] 100 mg PO QDAY 04/14/18 04/14/18 04/14/18 History Active Medications: Generic Name Dose Route Start Last Admin Trade Name Freq PRN Reason Stop Dose Admin Acetaminophen 650 mg 04/15/18 01:00 Tylenol PO Q4H PRN Pain MILD(1-3)/Fever >100.5/WHITEHEAD Albuterol 2.5 mg 04/14/18 20:39 04/14/18 20:48 Proventil IH 2.5 mg Q4HRT PRN Administration Shortness Of Breath Famotidine 10 mg 04/15/18 10:00 04/17/18 23:15 Pepcid PO 10 mg BID PAUL Administration Heparin Sodium (Porcine) 5,000 unit 04/15/18 06:00 04/17/18 05:39 Heparin SUB-Q 5,000 unit Q12H PAUL Administration Hydromorphone HCl 0.5 mg 04/15/18 01:00 Dilaudid IV Q3H PRN Pain , Severe (7-10) Ceftriaxone Sodium 1 gm in 50 mls @ 100 mls/hr 04/15/18 10:00 04/17/18 11:14 Rocephin/Ns 1 Gm/50 Ml IV 100 mls/hr Q24HR PAUL Administration Protocol Sodium Chloride 1,000 mls @ 75 mls/hr 04/15/18 22:00 04/17/18 23:33 Nacl 0.9% 1000 Ml IV 75 mls/hr DIRECT PAUL Administration Insulin Human Lispro 0 unit 04/15/18 07:30 04/18/18 07:53 Humalog SUB-Q Not Given ACHS PAUL Protocol Linagliptin 5 mg 04/15/18 10:00 04/17/18 09:26 Tradjenta PO 5 mg QDAY PAUL Administration Ondansetron HCl 4 mg 04/15/18 01:00 Zofran IV Q8H PRN Nausea And Vomiting Oxycodone/Acetaminophen 1 tab 04/15/18 01:00 04/15/18 22:12 Percocet 5/325 PO 1 tab Q6H PRN Administration Pain, Moderate (4-6) Pravastatin Sodium 20 mg 04/15/18 22:00 04/17/18 23:15 Pravachol PO 20 mg QHS PAUL Administration Sodium Chloride 10 ml 04/15/18 10:00 04/17/18 23:18 Sodium Chloride Flush Syringe 10 Ml IV 10 ml BID PAUL Administration Sodium Chloride 10 ml 04/15/18 01:00 Sodium Chloride Flush Syringe 10 Ml IV PRN PRN LINE FLUSH
--- NOTE | 2018-04-18 09:57 | Progress Note ---
Addendum entered and electronically signed by MARLEN CANCHOLA MD 04/18/18 11:09: Agree with [employer]PER[employer] assessment and plan Cardiology will sign off Original Note: Assessment and Plan Cor pulmonale echocardiogram done shows severe dilatation of the right heart chambers, severe tricuspid regurgitation, severe pulmonary hypertension with a pulmonary artery systolic pressure greater than 75 mmHg, flattening of the intraventricular septum consistent with right heart pressure and volume overload. Left ventricle is normal in size with well-preserved systolic function, ejection fraction 55%. Acute renal failure Diabetes Hypertension Morbid obesity Conservative cardiac management. Subjective Date of service: 04/18/18 Interval history: Patient has no cardiac complaints. No events on telemetry. Objective Vital Signs Temp Pulse Resp BP Pulse Ox 04/18/18 05:05 98.4 F 80 20 96/64 95 04/17/18 22:00 94 04/17/18 21:38 97.8 F 87 20 91/56 94 04/17/18 17:51 97.5 F L 80 24 102/62 99 04/17/18 12:09 97.4 F L 80 24 110/64 97 - Physical Examination General: No Apparent Distress HEENT: Positive: PERRL Neck: Positive: trachea midline Cardiac: Positive: Reg Rate and Rhythm Lungs: Positive: Decreased Breath Sounds Neuro: Positive: Grossly Intact Extremities: Absent: edema
[2018-04-18] MEDS: PEPCID PO SCH ×2 (10:24→22:57)
[2018-04-18] MEDS: TRADJENTA PO SCH (10:25)
[2018-04-18] MEDS: SODIUM CHLORIDE FLUSH SYRINGE 10 ML IV SCH ×2 (10:28→22:32)
[2018-04-18] MEDS: ROCEPHIN/NS 1 GM/50 ML 1 GM/50 ML BAG IV SCH ×2 (10:28→13:51)
[2018-04-18 11:08] LABS: Myeloperoxidase Antibody <1.0 AI (<1.0)
--- NOTE | 2018-04-18 11:34 | Progress Note ---
Assessment and Plan Assessment and plan: Acute hypoxemic respiratory failure. Etiology likely secondary to cor pulmonal e/severe pulmonary hypertension. Patient will likely need home O2. I have discussed with manager of case. Acute kidney injury. Worsening Kidney function Baseline Cr about 28/1.4 in June 2016. Improved slightly. Patient appears to be nearing her baseline. Nephrology following No IV fluids [place] [id number] Cor pulmonale. Echocardiogram revealed severe cor pulmonale with severely dilated right heart chambers, severe TR, severe pulmonary hypertension, flattened IV septum consisitent with right heart pressure and volume overload. Left ventricular systolic function is normal limits with an EF of 50-55%. Pulmonary consultation. Consider CTEPH. However, given renal function, unable to obtain CTA of the chest. Doppler ultrasounds were negative for DVT. Consider VQ scan. Await pulmonary workup. Hypertension. Continue antihypertensive medications. Diabetes mellitus type 2 Continue tradjenta, Accu-Cheks and sliding scale as Asthma. Continue bronchodilators and breathing treatments. DVT prophylaxis. Continue heparin. Hyperlipidemia. Continue statin History Interval history: The patient is a 57 Yo female with history significant for Morbid obesity, DM-2, HTN, HLD and Asthma who presented to the ER with complaint of shortness of breath. The symptom started about 2 weeks ago. Shortness of breath is constant, worsens with physical exertion and decreases with rest. Associated symptoms include dry cough, fatigue and tiredness. She denies chest pain, orthopnea, PND, leg swelling or pain, hemoptysis, dizziness, syncope, fever, chills, dysuria, hematuria or jaundice. Intial BP was 91/56. Labs significant for creatinine 4.1, increased from 1.4 about 2 years ago. Pro-BNP greater than 27,000. Nephrology and cardiology were consulted for further evaluation. No new issues overnight. Hospitalist Physical - Constitutional Vitals: Temp Pulse Resp BP Pulse Ox 98.4 F 80 20 96/64 95 04/18/18 05:05 04/18/18 05:05 04/18/18 05:05 04/18/18 05:05 04/18/18 05:05 General appearance: Present: no acute distress, obese - EENT Eyes: Present: PERRL, EOM intact ENT: hearing intact, clear oral mucosa, dentition normal - Neck Neck: Present: supple, normal ROM - Respiratory Respiratory effort: normal Respiratory: bilateral: CTA - Cardiovascular Rhythm: regular Heart Sounds: Present: S1 & S2. Absent: gallop, rub - Extremities Extremities: no ischemia, No edema, Full ROM - Abdominal General gastrointestinal: soft, non-tender, non-distended, normal bowel sounds - Integumentary Integumentary: Present: clear, warm, dry - Neurologic Neurologic: CNII-XII intact, moves all extremities Results - Labs CBC & Chem 7: 04/14/18 14:38 04/17/18 03:51 Labs: Laboratory Last Values WBC 14.7 K/mm3 (4.5-11.0) H 04/14/18 14:38 RBC 4.20 M/mm3 (3.65-5.03) 04/14/18 14:38 Hgb 10.1 gm/dl (10.1-14.3) 04/14/18 14:38 Hct 32.4 % (30.3-42.9) 04/14/18 14:38 MCV 77 fl (79-97) L 04/14/18 14:38 MCH 24 pg (28-32) L 04/14/18 14:38 MCHC 31 % (30-34) 04/14/18 14:38 RDW 20.2 % (13.2-15.2) H 04/14/18 14:38 Plt Count 415 K/mm3 (140-440) 04/14/18 14:38 Lymph % (Auto) 16.5 % (13.4-35.0) 04/14/18 14:38 [place] % (Auto) 9.0 % (0.0-7.3) H 04/14/18 14:38 Eos % (Auto) 1.6 % (0.0-4.3) 04/14/18 14:38 Baso % (Auto) 0.9 % (0.0-1.8) 04/14/18 14:38 Lymph # 2.4 K/mm3 (1.2-5.4) 04/14/18 14:38 [place] # 1.3 K/mm3 (0.0-0.8) H 04/14/18 14:38 Eos # 0.2 K/mm3 (0.0-0.4) 04/14/18 14:38 Baso # 0.1 K/mm3 (0.0-0.1) 04/14/18 14:38 Seg Neutrophils % 72.0 % (40.0-70.0) H 04/14/18 14:38 Seg Neutrophils # 10.6 K/mm3 (1.8-7.7) H 04/14/18 14:38 PT 16.2 Sec. (12.2-14.9) H 04/14/18 14:42 INR 1.26 (0.87-1.13) H 04/14/18 14:42 APTT 26.6 Sec. (24.2-36.6) 04/14/18 14:42 POC ABG pH 7.343 (7.35-7.45) L 04/14/18 15:51 POC ABG pCO2 35.9 (35-45) 04/14/18 15:51 POC ABG pO2 61 (80-105) L 04/14/18 15:51 POC ABG HCO3 19.5 04/14/18 15:51 POC ABG Total CO2 21 04/14/18 15:51 POC ABG O2 Sat 90 04/14/18 15:51 POC ABG Base Excess -6 04/14/18 15:51 FiO2 21 % 04/14/18 15:51 Sodium 138 mmol/L (137-145) 04/17/18 03:51 Potassium 4.2 mmol/L (3.6-5.0) 04/17/18 03:51 Chloride 102.9 mmol/L (98-107) 04/17/18 03:51 Carbon Dioxide 22 mmol/L (22-30) 04/17/18 03:51 Anion Gap 17 mmol/L 04/17/18 03:51 BUN 71 mg/dL (7-17) H 04/17/18 03:51 Creatinine 1.8 mg/dL (0.7-1.2) H 04/17/18 03:51 Estimated GFR 35 ml/min 04/17/18 03:51 BUN/Creatinine Ratio 39 % 04/17/18 03:51 Glucose 119 mg/dL (65-100) H 04/17/18 03:51 POC Glucose 107 (70-105) H 04/18/18 07:55 Hemoglobin A1c 6.7 % (4-6) H 04/15/18 04:56 Calcium 8.3 mg/dL (8.4-10.2) L 04/17/18 03:51 Phosphorus 5.90 mg/dL (2.5-4.5) H 04/15/18 04:56 Total Bilirubin 0.70 mg/dL (0.1-1.2) 04/15/18 04:56 AST 62 units/L (5-40) H 04/15/18 04:56 ALT 70 units/L (7-56) H 04/15/18 04:56 Alkaline Phosphatase 145 units/L (35-129) H 04/15/18 04:56 NT-Pro-B Natriuret Pep 31053 pg/mL (0-900) H 04/14/18 14:38 Total Protein 7.6 g/dL (6.3-8.2) 04/15/18 04:56 Albumin 3.5 g/dL (3.9-5) L 04/15/18 04:56 Albumin/Globulin Ratio 0.9 % 04/15/18 04:56 PTH Intact 192.0 pg/mL (15-65) H 04/15/18 04:56 Proteinase 3 (PR3) Ab <1.0 AI (<1.0) 04/16/18 05:55 Myeloperoxidase Ab <1.0 AI (<1.0) 04/16/18 05:55
--- NOTE | 2018-04-18 12:46 | Progress Note ---
Assessment and Plan Acute hypoxemic respiratory failure. Cor pulmonale with severe pulmonary hypertension per 2D echo (with intraventricular septal flattening) Morbid obesity. Likely SONIA Acute possibly on chronic kidney injury. Leukocytosis. Mild metabolic acidosis. Diabetes. History of asthma. Possible history of venous thromboembolic phenomenon (patient continues to demonstrate non compliance with medical advice) - refused VQ scan - dopplers reportedly negative for VTE - continue supplemental oxygen to keep sats > 90% - home oxygen evaluation at discharge - follow ROXY, SOCRATES levels - may ultimately benefit from right heart cath - continue glycemic contro with SSI - cardiology evaluation ongoing - weight loss counseled - outpatient PFT's, PSG - DMITRY per nephrology team ... re-evaluate in am & prn Subjective Date of service: 04/18/18 Principal diagnosis: Acute hypoxemic Resp failure; Cor pulmonale; Morbid obesity; DMITRY Interval history: Patient is seen today for: Acute hypoxemic respiratory failure; Cor pulmonale with severe pulmonary hypertension per 2D echo (with intraventricular septal flattening); Morbid obesity; Acute possibly on chronic kidney injury. Seen and examined at bedside; 24hour events reviewed; nursing and respiratory care staff consulted; no adverse overnight events reported to me; resting in bed; still SOB; remains on oxygen; denies acute chest pains or palpitations Objective Vital Signs - 12hr 04/18/18 05:05 Temperature 98.4 F Pulse Rate 80 Respiratory 20 Rate Blood Pressure 96/64 O2 Sat by Pulse 95 Oximetry Constitutional: no acute distress, alert, other (morbidly obese AAF, nrmocephalic and atraumatic with increased resp effort at rest) Eyes: non-icteric ENT: oropharynx moist, other (malampati 3) Neck: supple, no lymphadenopathy, no JVD, other (large neck circumference) Effort: mildly labored Ascultation: Bilateral: diminished breath sounds Percussion: Bilateral: not dull Cardiovascular: regular rate and rhythm Gastrointestinal: normoactive bowel sounds, soft, non-tender, non-distended Integumentary: normal Extremities: no cyanosis, no edema, pulses normal, no ischemia or petechiae Neurologic: normal mental status, non-focal exam, pupils equal and round, CN II- XII normal, motor strength normal and Psychiatric: mood appropriate, affect normal CBC and BMP: 04/14/18 14:38 04/19/18 05:56 ABG, PT/INR, D-dimer: ABG POC ABG pH 7.343 (7.35-7.45) L 04/14/18 15:51 POC ABG pCO2 35.9 (35-45) 04/14/18 15:51 POC ABG pO2 61 (80-105) L 04/14/18 15:51 POC ABG HCO3 19.5 04/14/18 15:51 POC ABG Total CO2 21 04/14/18 15:51 POC ABG O2 Sat 90 04/14/18 15:51 PT/INR, D-dimer PT 16.2 Sec. (12.2-14.9) H 04/14/18 14:42 INR 1.26 (0.87-1.13) H 04/14/18 14:42 Abnormal lab findings: Abnormal Labs 04/14/18 04/14/18 04/14/18 14:38 14:38 14:38 WBC 14.7 H MCV 77 L MCH 24 L RDW 20.2 H [place] % (Auto) 9.0 H [place] # 1.3 H Seg Neutrophils % 72.0 H Seg Neutrophils # 10.6 H PT INR POC ABG pH POC ABG pO2 Sodium Carbon Dioxide 19 L BUN 74 H Creatinine 4.1 H Glucose 138 H POC Glucose Hemoglobin A1c Calcium Phosphorus AST ALT Alkaline Phosphatase NT-Pro-B Natriuret Pep 95434 H Albumin PTH Intact 04/14/18 04/14/18 04/14/18 14:42 15:51 22:18 WBC MCV MCH RDW [place] % (Auto) [place] # Seg Neutrophils % Seg Neutrophils # PT 16.2 H INR 1.26 H POC ABG pH 7.343 L POC ABG pO2 61 L Sodium Carbon Dioxide BUN Creatinine Glucose POC Glucose 169 H Hemoglobin A1c Calcium Phosphorus AST ALT Alkaline Phosphatase NT-Pro-B Natriuret Pep Albumin PTH Intact 04/15/18 04/15/18 04/15/18 04:56 04:56 04:56 WBC MCV MCH RDW [place] % (Auto) [place] # Seg Neutrophils % Seg Neutrophils # PT INR POC ABG pH POC ABG pO2 Sodium 136 L Carbon Dioxide 19 L BUN 80 H Creatinine 4.0 H Glucose 143 H POC Glucose Hemoglobin A1c 6.7 H Calcium Phosphorus 5.90 H AST 62 H ALT 70 H Alkaline Phosphatase 145 H NT-Pro-B Natriuret Pep Albumin 3.5 L PTH Intact 192.0 H 04/15/18 04/15/18 04/15/18 08:04 11:51 17:34 WBC MCV MCH RDW [place] % (Auto) [place] # Seg Neutrophils % Seg Neutrophils # PT INR POC ABG pH POC ABG pO2 Sodium Carbon Dioxide BUN Creatinine Glucose POC Glucose 146 H 169 H 144 H Hemoglobin A1c Calcium Phosphorus AST ALT Alkaline Phosphatase NT-Pro-B Natriuret Pep Albumin PTH Intact 04/15/18 04/16/18 04/16/18 22:16 05:55 08:39 WBC MCV MCH RDW [place] % (Auto) [place] # Seg Neutrophils % Seg Neutrophils # PT INR POC ABG pH POC ABG pO2 Sodium 136 L Carbon Dioxide 20 L BUN 84 H Creatinine 3.1 H Glucose 128 H POC Glucose 150 H 135 H Hemoglobin A1c Calcium Phosphorus AST ALT Alkaline Phosphatase NT-Pro-B Natriuret Pep Albumin PTH Intact 04/16/18 04/16/18 04/16/18 12:17 16:30 20:40 WBC MCV MCH RDW [place] % (Auto) [place] # Seg Neutrophils % Seg Neutrophils # PT INR POC ABG pH POC ABG pO2 Sodium Carbon Dioxide BUN Creatinine Glucose POC Glucose 189 H 136 H 161 H Hemoglobin A1c Calcium Phosphorus AST ALT Alkaline Phosphatase NT-Pro-B Natriuret Pep Albumin PTH Intact 04/17/18 04/17/18 04/17/18 03:51 08:09 12:13 WBC MCV MCH RDW [place] % (Auto) [place] # Seg Neutrophils % Seg Neutrophils # PT INR POC ABG pH POC ABG pO2 Sodium Carbon Dioxide BUN 71 H Creatinine 1.8 H Glucose 119 H POC Glucose 120 H 160 H Hemoglobin A1c Calcium 8.3 L Phosphorus AST ALT Alkaline Phosphatase NT-Pro-B Natriuret Pep Albumin PTH Intact 04/17/18 04/18/18 04/18/18 21:39 07:55 12:18 WBC MCV MCH RDW [place] % (Auto) [place] # Seg Neutrophils % Seg Neutrophils # PT INR POC ABG pH POC ABG pO2 Sodium Carbon Dioxide BUN Creatinine Glucose POC Glucose 127 H 107 H 157 H Hemoglobin A1c Calcium Phosphorus AST ALT Alkaline Phosphatase NT-Pro-B Natriuret Pep Albumin PTH Intact Chest x-ray: image reviewed Allied health notes reviewed: nursing
--- NOTE | 2018-04-18 13:30 | Query-Infection ---
"Sushil Parsons José Antonio Date:____04/18/18 Automation Qa Analyst/CDS:__shirin/sangeetha Phone#:___[phone] Exercise your independent professional judgment when responding to this query. Questions asked do not imply a particular answer is desired or expected. We greatly appreciate your clarification on this issue. Clinical Documentation States: History of present illness: 57-year-old female with pmh of HTN T2DM and HLD Presents with increasing sob for past 2 weeks.No chest pain.Also increasing fatigue.No swelling of feet or puffiness of face.Exertional dyspnea present. Assessment and plan: Acute hypoxemic respiratory failure. Etiology likely secondary to cor pulmonale/severe pulmonary hypertension. Patient will likely need home O2. I have discussed with piano case maker. Acute kidney injury. UTI Ceftriaxone 1 gm initiated Clinical findings show: (please check applicable parameters) Infection, known /suspected, with some of the following indicators; Specify the infection: UTI 04/14/18 WBC 14.7 DC 94 RR 29 General parameters [ ] Fever (core temp >38.30C or 100.40F) [ ] Hypothermia (core temp <36C) [X ] Heart rate >90 bpm [X ] Tachypnea: >20 bpm or pCO2 < 32 mmHg [ ] Altered mental status [ ] Significant edema / +ve fluid balance (>20 ml/kg 24 h) [ ] Hyperglycemia (Bl. glucose >110 mg/dl) w/o diabetes Inflammatory parameters [X ] Leukocytosis (white blood cell count >12,000/l) [ ] Leukopenia (white blood cell count <4,000/l) [ ] Bandemia (immature WBC > 10%) [ ] Leucocyte Left Shift [ ] Plasma procalcitonin>2 SD above the normal value Hemodynamic and tissue perfusion parameters [ ] Arterial hypotension(SBP <90 mmHg, MAP <70 mmHg,or a SBP drop >40 mmHg in adults) [ ] Hyperlactatemia (>3 mmol/l) [ ] Anion Gap (> 11mEG/l) [ ] Decreased capillary refill or mottling Organ dysfunction parameters [ ] Arterial hypoxemia (PaO2/FIO2 <300) [ ] Creatinine increase =0.5 mg/dl [ ] Acute oliguria (urine output <0.5 ml | kg |h or 45 mM/l for at least 2 hrs) [ ] Coagulation abnormalities (INR >1.5 or activated partial thromboplastin time >60 s) [ ] Ileus (absent ricardo wel sounds) [ ] Thrombocytopenia (platelet count <100,000/l) [ ] Hyperbilirubinemia (plasma total bilirubin >4 mg/dl) According to the clinical indications above, can Bacteremia be further specified? If so, please indicate below and in your Progress Notes and/ or Discharge Summary. Indicate if the condition was present on admission. PHYSICIAN RESPONSE: [ x] Sepsis [ ] Severe Sepsis [ ] Septic Shock [ ] Septicemia [ ] Sepsis now resolved [ ] SIRS due to non-infectious cause with organ dysfunction [ ] SIRS due to non-infectious cause without organ dysfunction [ ] Other: [ ] Comment/Explanation: Present on Admission: [ x] Yes (Y) [ ] Clinically undeterminable (W) [ ] No (N) [ ] Ruled Out Please also document response in your Progress Notes and/or Discharge Summary and indicate if the condition was present on admission Notes: SIRS/ SIRS WITH ORGAN DYSFUNCTION Systemic inflammatory response syndrome (SIRS) generally refers to the systemic response to trauma/rojas or other insult such as Acute Myocardial Infarction, Acute Pancreatitis, and Major Surgery with symptoms including fever, tachycardia, tachypnea, and leukocytosis (1). BACTEREMIA Presence of viable bacteria in the circulating blood (2). This term is reserved for patients that do not manifest above SIRS response. SEPTICEMIA Generally refers to a systemic disease associated with the presence of pathological microorganisms or toxins in the blood, which can include bacteria, viruses, fungi or other organisms (1). SEPSIS Generally refers to SIRS due infection (1). SEVERE SEPSIS Generally refers to sepsis associated with acute organ dysfunction (1). SEPTIC SHOCK Generally refers to circulatory failure associated with severe sepsis (2), and defined as hypotension or hypoperfusion despite adequate fluid resuscitation (1 hour) (3). REFERENCES: 1. [employer]/Society of Critical Care Medicine Consensus Conference. Definitions for sepsis and organ failure and guidelines for the use of innovative therapies in sepsis. Critical Care Med 1992;20:864 - 74. 2. [place] MM, Riaz MP, Joe MEGHANN, Russell E, Atilio D, Won D, Ramos J, [place] SM, Christophe JL, Aleshia G; International Sepsis Definitions Conference. 2001 SCCM/ESICM/ACCP/ATS/SIS International Sepsis Definitions Conference. Intensive Care Med. 2002;29(4):530-8. Epub 2002Jul 03. Review. PubMed PMID:[id number] 3. ICD-9-CM Official Guidelines for Coding and Reporting 4. Medscape Drugs, Diseases and Procedures references 5. [employer] Textbook of Internal Medicine. 18th Edition MTDD"
--- NOTE | 2018-04-18 15:03 | Consultation ---
PULMONARY CRITICAL CARE CONSULTATION CONSULTING PHYSICIAN: Jerardo Chou MD REASON FOR CONSULTATION: Cor pulmonale. CHIEF COMPLAINT AND HISTORY OF PRESENT ILLNESS: The patient is a 57-year-old -Mongolian female with past medical history significant amongst other things for a diagnosis of asthma and obesity, came to the Emergency Room complaining of shortness of breath. It has been going on for about a couple of weeks. She complained of generalized malaise, fatigue, and dyspnea on exertion. Denied chest pain. Denied leg pain or swelling. She denies any history of venous thromboembolic phenomenon in the past. She did admit to snoring and nonrestorative sleep, but stated that she also had a sleep study done a few years back, but she did not believe the results of the study, but ____ she is not on any treatment for possible sleep apnea. She was evaluated and admitted to the medical floor for further evaluation with an acute kidney injury and respiratory failure. We are asked to assist with management. After evaluation amongst other things revealed an abnormal 2D echo with severe cor pulmonale, severely dilated right heart, severe tricuspid regurgitation with RV systolic pressure is calculated at 74 mmHg. When I stopped by to see her, she was resting in bed. Denied any palpitations. Again, denied any episodes of loss of consciousness or near syncope. Denied any paroxysmal nocturnal dyspnea. She denied any history of arthralgias. She denies any history of sarcoidosis. She denies any history of gross hematuria or any particular chronic kidney disease. When asked about a history of tobacco abuse, she reported that she was never a big time smoker, but I could not really quantify her tobacco use history. That really is about as much of the history of presentation as I have at this time. PAST MEDICAL HISTORY: Again, significant for history of hypertension, history of diabetes, and I do see a record that mentions blood clot in her lungs in 1994. PAST SURGICAL HISTORY: She has had 2 herniated disks in the past. MEDICATIONS: She was on at the time I stopped by to see her were reviewed. Pertinent medications include the following: Tylenol 650 mg p.o. q. 4 hours p.r.n. mild pain, albuterol 2.5 mg nebulized q. 4 hours p.r.n. shortness of breath, Rocephin 1 gram IV daily, Pepcid 10 mg p.o. b.i.d., heparin 5000 units subcutaneous q. 12 hours, Dilaudid 0.5 mg IV q 3 hours p.r.n. severe pain, insulin via sliding scale, Tradjenta 5 mg p.o. daily, Zofran 4 mg IV q. 8 hours p.r.n. nausea and vomiting, Percocet 5/325 mg p.o. q. 6 hours p.r.n., Pravachol 20 mg p.o. at bedtime. ALLERGIES: No known drug allergies. DIET: Morbidly obese. Denies any acute weight loss or gain preceding few weeks to months. FAMILY AND SOCIAL HISTORY: Lives in the community. She does have a remote tobacco smoking history that I cannot quantify. Denies current alcohol, tobacco, or illicit drug use or abuse. FAMILY HISTORY: Otherwise she says is noncontributory. REVIEW OF SYSTEMS: No loss of consciousness. No new onset seizures. No new onset focal weakness. No history of seizures again. No hemoptysis. No hematemesis. Denies heat or cold intolerance. Denies polydipsia or polyuria. Denies any new rash on her body. She denies a history of Raynaud's type phenomenon. She denies a history of excessive oropharyngeal dryness, a history of odynophagia, or any suggestion of connective tissue type disorders. Complete 13-system review of systems obtained. Pertinent positives and/or negatives as in body of history above, otherwise noncontributory. PHYSICAL EXAMINATION: VITAL SIGNS: At presentation, she was afebrile, temperature 97.5 degrees Fahrenheit with a pulse of 94, respiratory rate of 22, blood pressure 91/56, O2 sats were 88% at presentation. I believe that was on room air. At the time I saw her, O2 sats were about 98%; however, that was on 2 liters nasal cannula. GENERAL: She is a morbidly obese -Mongolian female, normocephalic, atraumatic, talking to me in mostly uninterrupted sentences without overt respiratory distress at rest. HEAD, EYES, EARS, NOSE AND THROAT: She is anicteric. No conjunctival erythema. Oropharynx is moist. It is a Mallampati #4 oropharynx. NECK: No thyromegaly, no gross jugular venous distention. Grossly, no palpable lymph nodes in the supraclavicular or submandibular lymph node chains. LUNGS: Auscultation of both lung [place] are unremarkable. Lungs are clear bilaterally, no wheezing. HEART: Heart sounds 1 and 2 were heard, regular rate and rhythm at the time of my evaluation, without rubs or murmurs. ABDOMEN: Soft. Bowel sounds are positive, nontender. No palpable hepatosplenomegaly. EXTREMITIES: Without overt digital clubbing or cyanosis, no pedal edema. She has a full range of motion in her joints, no joint swelling. No costovertebral angle tenderness or muscle tenderness and really no paraspinal or vertebral body tenderness. NEUROLOGIC: Pupils are equal, round, about 4 mm, reactive to light. Extraocular muscle movements are intact. She moves all 4 extremities spontaneously. Power is 5/5 bilaterally in the upper and lower extremities. No fasciculations. No evidence of muscle wasting. Her mood is normal. Affect is appropriate. SKIN: The skin is of normal turgor without cellulitis or rash. No rashes over the dorsum of her palms. No discoloration, no digital clubbing. LABORATORY DATA AND IMAGING: From my review are as follows: White cell count 14,700 with a hemoglobin of 10.1, hematocrit of 32.4, platelet count of 415. INR was 1.26. Arterial blood gas showed a pH of 7.34, pCO2 of 36, pO2 of 61 that was on room air. Serum sodium was 139, potassium 4.5, chloride 100, bicarbonate 19, BUN 74, creatinine 4.1, glucose 138. BNP was elevated. No microbiology studies were done. Chest x-ray was done. I have reviewed the chest x-ray, essentially shows gross cardiomegaly. She has a busy perihilar area with severe significant dilatation of the right main pulmonary artery trunk even on the chest x-ray, some increased interstitial markings in the perihilar areas. There is some blunting of both costophrenic angles. The film is slightly rotated to the right. No gross pneumothorax, no gross bony fractures. She had a 2D echo that has been described in the body of the history. ASSESSMENT: 1. Acute hypoxemic respiratory failure. 2. Cor pulmonale with severe pulmonary hypertension per 2D echo and severe dilatation of the right ventricle with intraventricular septal flattening. 3. Morbid obesity. 4. Acute possibly on chronic kidney injury. 5. Leukocytosis. 6. Mild metabolic acidosis. 7. Diabetes. 8. History of asthma. 9. Possible history of venous thromboembolic phenomenon. PLAN: I have had the initial stages explain to her that she is dealing with severe pulmonary hypertension and she needs to be on supplemental oxygen as needed /. I have explained the survival benefits of supplemental oxygen to her in her condition. I have in particular also mentioned that if she does smoke, she needs to stop smoking and that is an important thing. I have explained to her that she will need to get a sleep study done and treat any underlying sleep apnea. I have tried to explain to her the relationship between hypoxemia and development of cor pulmonale over time. Weight loss obviously is important and has been discussed with her also. We will need to workup this a little bit further. We may be dealing with a pulmonary renal syndrome, but I will need a CT scan with high resolution cuts to better evaluate for diffuse proliferative lung disease. An ROXY level will be sent as a screen for connective tissue disorders. Consideration will be made for given ANCA serologies. I am going to go ahead and get a stat D-dimer level and bilateral lower extremity Dopplers. I will have love to order a CT angiogram of her chest, but with her renal issues IV contrast is relatively contraindicated at this time. We will get a nuclear medicine V/Q scan to also evaluate for chronic thromboembolic pulmonary hypertension. I have stressed the importance of medical compliance at this stage with the patient who has given a history consistent with not believe in a lot of her physicians. She is appropriately on GI prophylaxis as well as DVT prophylaxis. Flu and pneumonia vaccination will be per protocol. She will benefit from a right heart catheterization and this will be discussed down the line with the attending and cherry cutter. Thank you very much for the consult. We will follow along and make further recommendations as picture progresses/becomes clearer. JOB# [id number] RICKY/YANELI VARGAS
[2018-04-18] MEDS: HEPARIN SUB-Q SCH (18:00)
[2018-04-18] MEDS: PRAVACHOL PO SCH (22:57)
[2018-04-19] MEDS: HEPARIN SUB-Q SCH ×3 (05:50→06:33)
[2018-04-19 06:09] VITALS: BP 100/68
[2018-04-19 07:02] LABS: BUN/Creatinine Ratio 28; Blood Urea Nitrogen 28 mg/dL (7-17); Calcium 8.4 mg/dL (8.4-10.2); Hemolysis Index 5
[2018-04-19] MEDS: HumaLOG SUB-Q SCH ×2 (08:19→12:12)
[2018-04-19] MEDS: ROCEPHIN/NS 1 GM/50 ML 1 GM/50 ML BAG IV SCH (10:51)
[2018-04-19] MEDS: PEPCID PO SCH (10:53)
[2018-04-19] MEDS: TRADJENTA PO SCH (10:53)
[2018-04-19] MEDS: SODIUM CHLORIDE FLUSH SYRINGE 10 ML IV SCH (10:54)
--- NOTE | 2018-04-19 11:49 | Discharge Summary ---
Providers - Providers Date of Admission: 04/14/18 16:00 Date of discharge: 04/19/18 Attending physician: EULA CAROLINA 04/14/18 15:23 Consult to Physician [CONS] Urgent Comment: Consulting Provider: CHANDLER TURNER Physician Instructions: Reason For Exam: dmitry 04/16/18 10:07 Consult to Physician [CONS] Routine Comment: Consulting Provider: CHRISTINE CRUZ Physician Instructions: Reason For Exam: cor pulmonale Primary care physician: ELECTRONICS MAINTENANCE TECHNICIAN Hospitalization Reason for admission: dyspnes Condition: Stable Hospital course: This is a 57-year-old female presented to the emergency department with complaints of dyspnea for 2 weeks. The patient was admitted with diagnosis of acute hypoxemic respiratory failure. The patient underwent workup which included echocardiogram which revealed severe cor pulmonale with severely dilated right heart chambers, severe TR, severe pulmonary hypertension, flattened IV septum consistent with right heart pressure and volume overload. Left ventricular systolic function is normal limits with an EF of 50-55%. Pulmonary consultation for evaluation of severe pulmonary hypertension. Angiotensin converting enzyme and ROXY titers ordered which can be followed up as an outpatient. VQ scan was also ordered to rule out CTEPH. However, patient refused the test. Patient was evaluated for home oxygen at the time of discharge. Pulse Ox resting on room air 96 %, pulse ox with exercise on room air 94 % ,pulse ox on 2L nasal cannula 97 % and pulse ox on 2L nasal cannula with exercise 97 %. The patient did not meet criteria. Dedicated discharge time 32 minutes. Disposition: TO HOME OR SELFCARE Time spent for discharge: 32 - Discharge Diagnoses (1) Moderate to severe pulmonary hypertension Status: Acute (2) DMITRY (acute kidney injury) Status: Acute (3) Respiratory failure Status: Acute (4) HLD (hyperlipidemia) Status: Chronic Qualifiers: Hyperlipidemia type: mixed hyperlipidemia Qualified Code(s): E78.2 - Mixed hyperlipidemia (5) HTN (hypertension) Status: Chronic Qualifiers: Hypertension type: essential hypertension Qualified Code(s): I10 - Essential (primary) hypertension (6) T2DM (type 2 diabetes mellitus) Status: Chronic Qualifiers: Diabetes mellitus vermin exterminator insulin use: without vermin exterminator use Core Measure Documentation - Palliative Care Palliative Care/ Comfort Measures: Not Applicable - Core Measures Any of the following diagnoses?: none Exam - Constitutional Vitals: Temp Pulse Resp BP Pulse Ox 97.9 F 85 24 100/68 95 04/19/18 05:55 04/19/18 05:55 04/19/18 05:55 04/19/18 05:55 04/19/18 05:55 General appearance: Present: no acute distress, well-nourished - EENT Eyes: Present: PERRL ENT: hearing intact, clear oral mucosa - Neck Neck: Present: supple, normal ROM - Respiratory Respiratory effort: normal Respiratory: bilateral: CTA - Cardiovascular Heart Sounds: Present: S1 & S2. Absent: rub, click - Extremities Extremities: pulses symmetrical, No edema Peripheral Pulses: within normal limits - Abdominal General gastrointestinal: Present: soft, non-tender, non-distended, normal bowel sounds Female genitourinary: Present: normal - Integumentary Integumentary: Present: clear, warm, dry - Musculoskeletal Musculoskeletal: gait normal, strength equal bilaterally - Psychiatric Psychiatric: appropriate mood/affect, intact judgment & insight - Neurologic Neurologic: CNII-XII intact, moves all extremities Plan Activity: advance as tolerated Weight Bearing Status: Weight Bear as Tolerated Diet: diabetic Follow up with: PRIMARY MD JUVENAL [Primary Care Provider] - 3-5 Days GLEN SOUSA MD [Staff Physician] - 7 Days CHRISTINE CRUZ MD [Staff Physician] - 7 Days Prescriptions: Albuterol Sulfate [Proventil Hfa] 2 puff IH Q4-6H PRN 30 Days hfa.aer.ad PRN Reason: Shortness Of Breath Losartan/Hydrochlorothiazide [Losartan-Hctz 100-25 mg Tab] 1 each PO QDAY #30 tablet Lovastatin [Altoprev] 20 mg PO HS #30 tab.er.24h Metformin HCl [Glucophage] 1,000 mg PO BID #60 tablet oxyCODONE /ACETAMINOPHEN [Percocet 5/325 mg] 1 tab PO Q6H PRN #12 tablet PRN Reason: Pain, Moderate (4-6) Sitagliptin Phosphate [Januvia] 100 mg PO QDAY #30 tablet
[2018-04-19 12:02] LABS: ANA Screen, IFA Negative (Negative)
--- NOTE | 2018-04-19 13:46 | Progress Note ---
Assessment and Plan 1. Acute kidney injury: Vasomotor / hemodynamic DMITRY in the setting of hypotension. Renal US was negative for any hydronephrosis. Antibodies and Complements are negative. Renal function is better. Monitor. 2. FEN: Lytes are better. 3. Right sided heart failure: Cor pulmonale. 4. Respiratory failure. 5. DM-2. F/u with me in 2-3 weeks. Subjective Date of service: 04/19/18 Interval history: Patient is doing ok. No new symptom. Objective - Vital Signs Vital signs: Vital Signs - 12hr 04/19/18 05:55 Temperature 97.9 F Pulse Rate 85 Respiratory 24 Rate Blood Pressure 100/68 O2 Sat by Pulse 95 Oximetry - General Appearance General appearance: well-developed, well-nourished, appears stated age, obese, other (not in distress) EENT: ATNC, PERRL, mucous membranes moist, hearing intact, vision intact Neck: JVD, supple Respiratory: Present: Clear to Ascultation Cardiology: regular, S1S2, no murmurs Gastrointestinal: normoactive bowel sounds, no tenderness, no distended, obese Integumentary: no rash, warm and dry Neurologic: no focal deficit, no asterixis, alert and oriented x3 Musculoskeletal: other (trace LE edema noted) - Lab 04/14/18 14:38 04/19/18 05:56 Most recent lab results Calcium 8.4 mg/dL (8.4-10.2) 04/19/18 05:56 Phosphorus 5.90 mg/dL (2.5-4.5) H 04/15/18 04:56 Magnesium 1.90 mg/dL (1.7-2.3) 04/19/18 05:56 Medications & Allergies - Medications Allergies/Adverse Reactions: Allergies No Known Allergies Allergy (Verified 04/14/18 20:41) Home Medications: Home Medications Medication Instructions Recorded Confirmed Last Taken Type Albuterol Sulfate [Proventil Hfa] 2 puff IH Q4-6H PRN 30 Days 04/19/18 Unknown Rx hfa.aer.ad Losartan/Hydrochlorothiazide 1 each PO QDAY #30 tablet 04/19/18 Unknown Rx [Losartan-Hctz 100-25 mg Tab] Lovastatin [Altoprev] 20 mg PO HS #30 tab.er.24h 04/19/18 Unknown Rx Metformin HCl [Glucophage] 1,000 mg PO BID #60 tablet 04/19/18 Unknown Rx Sitagliptin Phosphate [Januvia] 100 mg PO QDAY #30 tablet 04/19/18 Unknown Rx oxyCODONE /ACETAMINOPHEN [Percocet 1 tab PO Q6H PRN #12 tablet 04/19/18 Unknown Rx 5/325 mg] Active Medications: Generic Name Dose Route Start Last Admin Trade Name Freq PRN Reason Stop Dose Admin Acetaminophen 650 mg 04/15/18 01:00 Tylenol PO Q4H PRN Pain MILD(1-3)/Fever >100.5/WHITEHEAD Albuterol 2.5 mg 04/14/18 20:39 04/14/18 20:48 Proventil IH 2.5 mg Q4HRT PRN Administration Shortness Of Breath Famotidine 10 mg 04/15/18 10:00 04/19/18 10:53 Pepcid PO 10 mg BID PAUL Administration Heparin Sodium (Porcine) 5,000 unit 04/15/18 06:00 04/19/18 06:33 Heparin SUB-Q Not Given Q12H PAUL Hydromorphone HCl 0.5 mg 04/15/18 01:00 Dilaudid IV Q3H PRN Pain , Severe (7-10) Ceftriaxone Sodium 1 gm in 50 mls @ 100 mls/hr 04/15/18 10:00 04/19/18 10:51 Rocephin/Ns 1 Gm/50 Ml IV 100 mls/hr Q24HR PAUL Administration Protocol Insulin Human Lispro 0 unit 04/15/18 07:30 04/19/18 12:12 Humalog SUB-Q Not Given ACHS [facility] Protocol Linagliptin 5 mg 04/15/18 10:00 04/19/18 10:53 Tradjenta PO 5 mg QDAY PAUL Administration Ondansetron HCl 4 mg 04/15/18 01:00 Zofran IV Q8H PRN Nausea And Vomiting Oxycodone/Acetaminophen 1 tab 04/15/18 01:00 04/15/18 22:12 Percocet 5/325 PO 1 tab Q6H PRN Administration Pain, Moderate (4-6) Pravastatin Sodium 20 mg 04/15/18 22:00 04/18/18 22:57 Pravachol PO 20 mg QHS PAUL Administration Sodium Chloride 10 ml 04/15/18 10:00 04/19/18 10:54 Sodium Chloride Flush Syringe 10 Ml IV 10 ml BID PAUL Administration Sodium Chloride 10 ml 04/15/18 01:00 Sodium Chloride Flush Syringe 10 Ml IV PRN PRN LINE FLUSH
[2018-04-21 21:08] LABS: Albumin 3.4 g/dL (3.8-4.8); Gamma Globulin 1.6 g/dL (0.8-1.7)
== END 2018-04-19 16:00 | disposition home or self-care (01) | DRG 871 ==
LOC: ED 14:15 → 3A 16:00 → UNDOADMIN 17:45 → 3A 17:45
PROVIDERS: ADMIT Internal Medicine; ATTEND Hospitalist
PROC: 4A033R1 Measurement of Arterial Saturation, Peripheral, Percutaneous Approach (ICD-10-PCS; principal; 2018-04-14)
DX: A41.9 Sepsis, unspecified organism (principal); I50.43 Acute on chronic combined systolic (congestive) and diastolic (congestive) heart failure; J96.01 Acute respiratory failure with hypoxia; N17.9 Acute kidney failure, unspecified; N39.0 Urinary tract infection, site not specified; Z68.43 Body mass index [BMI] 50.0-59.9, adult; J45.909 Unspecified asthma, uncomplicated; E78.2 Mixed hyperlipidemia; E66.01 Morbid (severe) obesity due to excess calories; I27.20 Pulmonary hypertension, unspecified; I50.811 Acute right heart failure; I27.81 Cor pulmonale (chronic); I11.0 Hypertensive heart disease with heart failure; Z86.711 Personal history of pulmonary embolism; Z82.49 Family history of ischemic heart disease and other diseases of the circulatory system; Z79.51 Long term (current) use of inhaled steroids; Z79.84 Long term (current) use of oral hypoglycemic drugs; Z79.899 Other long term (current) drug therapy
CPT/HCPCS: 36415; 71045; 76770; 80048; 80053; 82164; 82803; 82962; 83036; 83735; 83880; 83970; 84100; 84165; 85025; 85610; 85730; 86021; 86038; 86160; 93005; 93010; 93306; 94760; 96360; G0378; A9270-GY; J0696; J1644; J1815; J1940; J7030; J7040

== ENCOUNTER 2018-08-18 17:46 | Inpatient (IN) | payer MEDICARE ==
--- NOTE | 2018-08-18 19:20 | Emergency Department Report ---
Blank Doc - Documentation Documentation: This is a 58-year-old female that presents with SOB and bilateral leg swelling. This initial assessment/diagnostic orders/clinical plan/treatment(s) is/are subject to change based on patient's health status, clinical progression and re- assessment by fellow clinical providers in the ED. Further treatment and workup at subsequent clinical providers discretion. Patient/guardians urged not to elope from the ED as their condition may be serious if not clinically assessed and managed. Initial orders include: 1- Patient sent to MAIN ED for further evaluation and treatment 2- EKG 3- labs 4- CXR
[2018-08-18 20:07] LABS: Hematocrit 27.2 % (30.3-42.9); Hemoglobin 8.2 gm/dl (10.1-14.3); Mean Corpuscular HGB Conc 30 % (30-34); Mean Corpuscular Volume 69 fl (79-97); Platelet Count 515 K/mm3 (140-440); Red Blood Count 3.93 M/mm3 (3.65-5.03); Red Cell Distribution Width 25.9 % (13.2-15.2)
[2018-08-18 20:26] LABS: Calcium 8.8 mg/dL (8.4-10.2)
[2018-08-18 20:29] LABS: Albumin 3.4 g/dL (3.9-5); Bilirubin,Direct 1.6 mg/dL (0-0.2)
[2018-08-18 20:47] LABS: Basophils % (Manual) 0 % (0.0-1.8); Total Cells Counted 100
[2018-08-18 20:49] LABS: Anisocytosis 2+; Platelet Estimate Consistent w Auto; Poikilocytosis 2+; Spherocytes Few
[2018-08-18 20:50] LABS: Target Cells 1+
--- NOTE | 2018-08-18 23:03 | XRay Report ---
PROCEDURE: XR CHEST ROUTINE 2V TECHNIQUE: PA and lateral chest radiographs were obtained. HISTORY: shortness of breath, cough COMPARISONS: None. FINDINGS: Heart: Heart is enlarged. Mediastinum/Vessels: Normal. Lungs/Pleural space: Lungs are clear. There are no infiltrates, effusions or pneumothoraces.. Bony thorax: No acute osseous abnormality. IMPRESSION: Heart is enlarged. Lungs are clear. There are no infiltrates, effusions or pneumothoraces... This document is electronically signed by Javier Farooq MD., Aug 18 2018 11:01:03 PM ET
--- NOTE | 2018-08-19 01:08 | Emergency Department Report ---
HPI - General Chief Complaint: Dyspnea/Respdistress Time Seen by Provider: 08/18/18 19:19 - HPI HPI: Room 1 The patient is a 58-year-old female presenting with chief complaint shortness of breath. The patient states for one week she's had intermittent shortness of breath and dyspnea on exertion. Patient states she's had a cough as been productive of sputum but is uncertain of the color. The patient states she has noticed swelling in her legs and abdomen and feels as though she is retaining fluid. Chest pain, nausea/vomiting or fever. Location: Lungs Duration: One week Quality: Shortness of breath Severity: Moderate Modifying factors: [see above] Context: [see above] Mode of transportation: [not driving] ED Past Medical Hx - Past Medical History Previous Medical History?: Yes Hx Hypertension: Yes Hx Congestive Heart Failure: Yes Hx Diabetes: Yes Hx Pulmonary Embolism: Yes Hx Asthma: Yes (childhood asthma) Additional medical history: Two herniated disc, felt like she had the flu and has had a persistent cough - Surgical History Past Surgical History?: No - Family History Family history: no significant - Social History Smoking Status: Never Smoker Substance Use Type: None (denies illicit drug use) - Medications Home Medications: Home Medications Medication Instructions Recorded Confirmed Last Taken Type Albuterol Sulfate [Proventil Hfa] 2 puff IH Q4-6H PRN 30 Days 04/19/18 Unknown Rx hfa.aer.ad Losartan/Hydrochlorothiazide 1 each PO QDAY #30 tablet 04/19/18 Unknown Rx [Losartan-Hctz 100-25 mg Tab] Lovastatin [Altoprev] 20 mg PO HS #30 tab.er.24h 04/19/18 Unknown Rx Metformin HCl [Glucophage] 1,000 mg PO BID #60 tablet 04/19/18 Unknown Rx Sitagliptin Phosphate [Januvia] 100 mg PO QDAY #30 tablet 04/19/18 Unknown Rx oxyCODONE /ACETAMINOPHEN [Percocet 1 tab PO Q6H PRN #12 tablet 04/19/18 Unknown Rx 5/325 mg] ED Review of Systems ROS: Stated complaint: FLUID RETENTION Other details as noted in HPI Constitutional: denies: fever Eyes: denies: eye pain ENT: denies: throat pain Respiratory: shortness of breath, SOB with exertion Cardiovascular: dyspnea on exertion. denies: chest pain Endocrine: no symptoms reported Gastrointestinal: denies: abdominal pain Genitourinary: denies: dysuria Musculoskeletal: denies: back pain Neurological: denies: headache Physical Exam - Physical Exam Vital Signs: Vital Signs 08/18/18 08/18/18 08/19/18 19:10 23:12 00:45 Temperature 98.6 F 97.7 F Pulse Rate 98 H 102 H 95 H Respiratory 18 20 1 L Rate Blood Pressure 113/74 112/73 Blood Pressure 109/72 [Left] O2 Sat by Pulse 94 93 100 Oximetry Physical Exam: GENERAL: The patient is well-developed well-nourished female sleeping on str etcher not appearing to be in acute distress. [] HEENT: Normocephalic. Atraumatic. Extraocular motions are intact. Patient has moist mucous membranes. NECK: Supple. Trachea midline CHEST/LUNGS: Clear to auscultation. There is no respiratory distress noted. HEART/CARDIOVASCULAR: Regular. There is no tachycardia. There is no gallop rub or murmur. ABDOMEN: Abdomen is soft, nontender. Patient has normal bowel sounds. There is no abdominal distention. SKIN: There is no rash. There is trace to 1+ bilateral lower extremity pitting edema. There is no diaphoresis. NEURO: The patient is awake, alert, and oriented. The patient is cooperative. The patient has no focal neurologic deficits. The patient has normal speech MUSCULOSKELETAL: There is no evidence of acute injury. ED Course Vital Signs 08/18/18 08/18/18 08/19/18 19:10 23:12 00:45 Temperature 98.6 F 97.7 F Pulse Rate 98 H 102 H 95 H Respiratory 18 20 1 L Rate Blood Pressure 113/74 112/73 Blood Pressure 109/72 [Left] O2 Sat by Pulse 94 93 100 Oximetry ED Medical Decision Making - Lab Data Result diagrams: 08/18/18 19:23 08/18/18 19:23 Laboratory Tests 08/18/18 08/18/18 08/18/18 19:23 19:23 19:30 WBC 9.4 RBC 3.93 Hgb 8.2 L Hct 27.2 L MCV 69 L MCH 21 L MCHC 30 RDW 25.9 H Plt Count 515 H Add Manual Diff Complete Total Counted 100 Seg Neuts % (Manual) 82.0 H Band Neutrophils % 0 Lymphocytes % (Manual) 8.0 L Reactive Lymphs % (Man) 0 Monocytes % (Manual) 6.0 Eosinophils % (Manual) 4.0 Basophils % (Manual) 0 Metamyelocytes % 0 Myelocytes % 0 Promyelocytes % 0 Blast Cells % 0 Nucleated RBC % Not Reportable Seg Neutrophils # Man 7.7 Band Neutrophils # 0.0 Lymphocytes # (Manual) 0.8 L Abs React Lymphs (Man) 0.0 Monocytes # (Manual) 0.6 Eosinophils # (Manual) 0.4 Basophils # (Manual) 0.0 Metamyelocytes # 0.0 Myelocytes # 0.0 Promyelocytes # 0.0 Blast Cells # 0.0 WBC Morphology Not Reportable Hypersegmented Neuts Not Reportable Hyposegmented Neuts Not Reportable Hypogranular Neuts Not Reportable Smudge Cells Not Reportable Toxic Granulation Not Reportable Toxic Vacuolation Not Reportable Dohle Bodies Not Reportable Pelger-Huet Anomaly Not Reportable Mary Rods Not Reportable Platelet Estimate Consistent w auto Clumped Platelets Not Reportable Plt Clumps, EDTA Not Reportable Large Platelets Not Reportable Giant Platelets Not Reportable Platelet Satelliting Not Reportable Plt Morphology Comment Not Reportable RBC Morphology Not Reportable Dimorphic RBCs Not Reportable Polychromasia Not Reportable Hypochromasia Not Reportable Poikilocytosis 2+ Anisocytosis 2+ Microcytosis 1+ Macrocytosis Not Reportable Spherocytes Few Pappenheimer Bodies Not Reportable Sickle Cells Not Reportable Target Cells 1+ Tear Drop Cells Not Reportable Ovalocytes Not Reportable Helmet Cells Not Reportable Sellers-Duchesne Bodies Not Reportable Yelm Rings Not Reportable Ryan Cells Not Reportable Bite Cells Not Reportable Crenated Cell Not Reportable Elliptocytes Not Reportable Acanthocytes (Spur) Not Reportable Rouleaux Not Reportable Hemoglobin C Crystals Not Reportable Schistocytes Not Reportable Malaria parasites Not Reportable Royce Bodies Not Reportable Hem Pathologist Commnt No Sodium 137 Potassium 4.9 Chloride 104.3 Carbon Dioxide 19 L Anion Gap 19 BUN 31 H Creatinine 1.8 H Estimated GFR 35 BUN/Creatinine Ratio 17 Glucose 86 Calcium 8.8 Total Bilirubin 2.40 H Direct Bilirubin 1.6 H Indirect Bilirubin 0.8 AST 27 ALT 11 Alkaline Phosphatase 107 NT-Pro-B Natriuret Pep 4971 H Total Protein 7.8 Albumin 3.4 L Albumin/Globulin Ratio 0.8 - EKG Data -: EKG Interpreted by Me EKG shows normal: sinus rhythm Rate: normal - EKG Data When compared to previous EKG there are: previous EKG unavailable Interpretation: other (no ischemic changes seen) - Radiology Data Radiology results: report reviewed (chest x-ray), image reviewed (chest x-ray) interpreted by me: Chest x-ray-no focal infiltrates, no pneumothorax [facility] [address] [place] [address] XRay Report Signed Patient: MORGAN WHITTAKER MR#: [id number] : 1960 Acct:[id number] Age/Sex: 58 / F ADM Date: 08/18/18 Loc: ED Attending Dr: Ordering Physician: TERRIE STARK NP Date of Service: 08/18/18 Procedure(s): XR chest routine 2V Accession Number(s): [id number] cc: TERRIE STARK NP Fluoro Time In Minutes: PROCEDURE: XR CHEST ROUTINE 2V TECHNIQUE: PA and lateral chest radiographs were obtained. HISTORY: shortness of breath, cough COMPARISONS: None. FINDINGS: Heart: Heart is enlarged. Mediastinum/Vessels: Normal. Lungs/Pleural space: Lungs are clear. There are no infiltrates, effusions or pneumothoraces.. Bony thorax: No acute osseous abnormality. IMPRESSION: Heart is enlarged. Lungs are clear. There are no infiltrates, effusions or pneumothoraces... This document is electronically signed by Javier Chaparro MD., Aug 18 2018 11:01:03 PM ET Transcribed By: CO Dictated By: JAVIER CHAPARRO MD Electronically Authenticated By: JAVIER CHAPARRO MD Signed Date/Time: 08/18/182302 DD/ 21 TD/TT: 08/18/182121 - Differential Diagnosis CHF exacerbation, renal failure, symptomatic anemia Critical care attestation.: If time is entered above; I have spent that time in minutes in the direct care of this critically ill patient, excluding procedure time. ED Disposition Clinical Impression: Dyspnea on exertion, Acute renal insufficiency, Anemia Disposition: OP ADMIT IP TO THIS HOSP Is pt being admited?: Yes Does the pt Need Aspirin: No Condition: Fair [facility] ROSALIA [Primary Care Provider] - 3-5 Days Time of Disposition: 01:11 (hospitalist paged )Dr Bailey))
[2018-08-19] MEDS ORDERED: ZOFRAN IV PRN (02:26)
[2018-08-19] MEDS ORDERED: TYLENOL PO PRN (02:26)
[2018-08-19] MEDS ORDERED: PROAIR IH PRN (02:30)
[2018-08-19] MEDS ORDERED: D50W (25GM) Syringe IV PRN (02:36)
[2018-08-19] MEDS: PERCOCET 5/325 PO PRN (02:40)
[2018-08-19] MEDS ORDERED: NITRO-BID 2% TP SCH (06:00)
--- NOTE | 2018-08-19 06:21 | History and Physical Report ---
CHIEF COMPLAINT: Shortness of breath. HISTORY OF PRESENT ILLNESS: The patient is a 58-year-old female, who said she has been having shortness of breath going on for about 1 week and has been occurring intermittently and worse with exertion. There is history of cough, which is productive of sputum. The patient does not know the color of the sputum and there is history of also swelling in both legs and also swelling in the abdomen according to the patient and the patient states she feels like she is retaining fluid. The patient denied history of chest pain and denied history of fever, chills, nausea, vomiting and presented for evaluation. PAST MEDICAL HISTORY: Pertinent for hypertension, congestive heart failure, diabetes mellitus, pulmonary embolism, asthma. PAST SURGICAL HISTORY: Unremarkable. FAMILY HISTORY: Noncontributory. SOCIAL HISTORY: The patient does not smoke, does not drink alcohol, and does not use illicit drug. MEDICATIONS: The patient is on albuterol inhaler 2 puffs every 4 to 6 hours as needed for shortness of breath. The patient is also on losartan-HCTZ 100/25 mg one by mouth daily and also on lovastatin 20 mg by mouth daily. The patient is also on metformin 1000 mg by mouth twice daily and Sitagliptin Phosphate or Januvia 100 mg by mouth daily. The patient is on Percocet 5/325 mg 1 tablet by mouth every 6 hours as needed for pain. ALLERGIES: There are no known drug allergies. REVIEW OF SYSTEMS: CONSTITUTIONAL: There is no fever, no chills, no diaphoresis. HEENT: There is no headache or sore throat. CARDIOVASCULAR SYSTEM: There is no chest pain or orthopnea. RESPIRATORY SYSTEM: Shortness of breath is present and cough is present. GASTROINTESTINAL SYSTEM: There is no nausea, no vomiting, no abdominal pain, diarrhea or constipation. NEUROLOGICAL SYSTEM: There is no numbness, no dizziness, no altered mental status. MUSCULOSKELETAL SYSTEM: Swelling in both ankles and leg noted. No joint pain. DERMATOLOGICAL SYSTEM: There is no skin rash or itching. GENITOURINARY SYSTEM: There is no dysuria, hematuria or flank pain. Rest of system review is normal. PHYSICAL EXAMINATION: GENERAL: At the time of exam, the patient was found to be alert, oriented x 3, and not in acute distress. VITAL SIGNS: At the initial time of presentation show temperature of 98.6 degrees Fahrenheit, pulse of 98, respirations 18, blood pressure 113/74, O2 sat of 94% on room air. HEENT: Showed pupils to be equal, round, reactive to light and accommodating. Extraocular muscles are intact. NECK: Supple with no JVD or carotid bruit. CARDIOVASCULAR SYSTEM: Showed normal first and second heart sounds with no gallops or murmur. RESPIRATORY SYSTEM: Show reduced air entry on both sides of the lungs with bibasilar rales. GASTROINTESTINAL SYSTEM: Show abdomen to be full, soft, nontender with no organomegaly or rigidity. NEUROLOGICAL: Shows no focal deficit. MUSCULOSKELETAL SYSTEM: Shows swelling in the ankles. DERMATOLOGICAL SYSTEM: Show no skin rash. GENITOURINARY: Showing no costovertebral angle tenderness. PERTINENT LABORATORY AND IMAGING STUDIES: The patient had chest x-ray done, which shows enlarged heart with clear lungs and no infiltrate, effusion or pneumothorax found. Lab results, the patient's CBC showed normal white count, low hemoglobin of 8.2 and low hematocrit of 27.2 with low MCV of 69. CBC differential show elevated segmented neutrophil count of 82%. The patient's chemistry shows elevated BUN of 31 with elevated creatinine of 1.8 and high bilirubin level of 2.4 with elevated direct bilirubin of 1.6. The patient's brain natriuretic peptide level is high with a value of 4971. DIAGNOSES: 1. Congestive heart failure exacerbation. 2. Acute kidney injury. 3. Anemia. PLAN OF CARE: 1. The patient will be admitted to telemetry. 2. The patient will have serial cardiac enzymes checked q. 6 hours x 2 and involve troponin, total CK, and CK-MB. 3. The patient will have 2D echo done in the morning. 4. The patient will have Nephrology consult with Dr. Collins. 5. The patient will have Accu-Chek before meals and at bedtime followed by low-dose sliding scale using regular insulin coverage. 6. The patient will have basic metabolic panel checked in the morning because of the acute kidney injury. 7. The patient will be on Tylenol 650 mg by mouth every 4 hours for fever and headache and will be aspirin 325 mg daily and will be on IV Lasix 40 mg daily. 8. The patient will be on heparin 5000 units subcutaneous q. 12 hours for DVT prophylaxis and will be on nitro paste 0.5 inch topically t.i.d. as well as being on IV Zofran 4 mg every 8 hours for nausea and vomiting. 9. The patient will be on home medication as shown in the medication reconciliation section. 10. The patient will have albuterol nebulizer treatment p.r.n. 11. The patient will be on aspirin 325 mg by mouth daily and will be on Tylenol 650 mg by mouth every 4 hours for fever and headache. 12. The patient's diet will be consistent carbohydrate 2 g sodium diet. JOB# [id number] OCN/NTS
[2018-08-19 06:34] LABS: Creatine Kinase MB 3.6 ng/mL (0.0-4.0)
[2018-08-19 06:39] LABS: BUN/Creatinine Ratio 18; Blood Urea Nitrogen 31 mg/dL (7-17); Calcium 8.7 mg/dL (8.4-10.2); Hemolysis Index 19
[2018-08-19] MEDS ORDERED: NITRO-BID 2% TP ONE (07:25)
[2018-08-19] MEDS: HumuLIN R SUB-Q SCH ×4 (07:38→22:08)
[2018-08-19] MEDS ORDERED: NITRO-BID 2% TP PRN (08:37)
[2018-08-19] MEDS: LASIX IV SCH (09:24)
[2018-08-19] MEDS: HEPARIN SUB-Q SCH ×2 (09:26→22:08)
[2018-08-19] MEDS: ASPIRIN PO SCH (09:28)
[2018-08-19] MEDS ORDERED: HCTZ PO SCH (10:00)
[2018-08-19] MEDS ORDERED: NON-FORMULARY (Losartan/Hydrochlorothiazide [Losartan-Hctz 100-25 Mg Tab] 1 EACH) PO SCH (10:00)
[2018-08-19] MEDS ORDERED: COZAAR PO SCH ×2 (10:00→11:00)
[2018-08-19 13:42] LABS: Creatine Kinase MB 3.7 ng/mL (0.0-4.0)
--- NOTE | 2018-08-19 15:24 | Consultation ---
History of Present Illness - Reason for Consult Consult date: 08/19/18 acute renal failure - History of Present Illness The patient is a 58 Yo female with history significant for Morbid obesity, DM-2, HLD, Asthma, SONIA not using CPAP, Severe pulmonary HTN, R sided heart failure and Medical non-compliance who presented to the ER with complaint of shortness of breath. For the past week she has had intermittent shortness of breath and dyspnea on exertion. Patient also reports having cough productive of sputum, bilateral leg swelling and increase in abdominal girth. She denies abd pain, nausea, vomiting, chest pain, orthopnea, hemoptysis, dizziness, syncope, fever, chills, dysuria, hematuria or jaundice. Labs were significant for creatinine 1.8, increased from 1 about 4 months ago. Nephrology was consulted for further evaluation. Past History Past Medical History: diabetes, heart failure, hypertension, hyperlipidemia, other (SONIA, Pulmonary HTN, Asthma) Medications and Allergies Allergies Allergy/AdvReac Type Severity Reaction Status Date / Time No Known Allergies Allergy Verified 04/14/18 20:41 Home Medications Medication Instructions Recorded Confirmed Last Taken Type Albuterol Sulfate [Proventil Hfa] 2 puff IH Q4-6H PRN 30 Days 04/19/18 08/19/18 Unknown Rx hfa.aer.ad Lovastatin [Altoprev] 20 mg PO HS #30 tab.er.24h 04/19/18 08/19/18 Unknown Rx Metformin HCl [Glucophage] 1,000 mg PO BID #60 tablet 04/19/18 08/19/18 Unknown Rx Sitagliptin Phosphate [Januvia] 100 mg PO QDAY #30 tablet 04/19/18 08/19/18 Unknown Rx Budesonide/Formoterol Fumarate 2 puff IH BID 08/19/18 08/19/18 Unknown History [Symbicort 160-4.5 Mcg Inhaler] Furosemide [Lasix TAB] 40 mg PO QDAY 08/19/18 08/19/18 Unknown History Loratadine [Claritin] 10 mg PO DAILY 08/19/18 08/19/18 Unknown History Losartan [Cozaar] 100 mg PO QDAY 08/19/18 08/19/18 Unknown History hydroCHLOROthiazide [HCTZ] 25 mg PO QDAY 08/19/18 08/19/18 Unknown History Active Meds: Active Medications Acetaminophen (Tylenol) 650 mg PO Q4H PRN PRN Reason: Headache Albuterol (Proventil) 2.5 mg IH Q4HRT PRN PRN Reason: Shortness Of Breath Aspirin (Aspirin) 325 mg PO QDAY [facility] Last Admin: 08/19/18 09:28 Dose: 325 mg Documented by: Dextrose (D50w (25gm) Syringe) 50 ml IV PRN PRN PRN Reason: Hypoglycemia Furosemide (Lasix) 40 mg IV QDAY [facility] Last Admin: 08/19/18 09:24 Dose: 40 mg Documented by: Heparin Sodium (Porcine) (Heparin) 5,000 unit SUB-Q Q12HR [facility] Last Admin: 08/19/18 09:26 Dose: 5,000 unit Documented by: Insulin Human Regular (Humulin R) 0 units SUB-Q AC [facility]; Protocol Last Admin: 08/19/18 12:05 Dose: Not Given Documented by: Insulin Human Regular (Humulin R) 0 units SUB-Q QHS [facility]; Protocol Losartan Potassium (Cozaar) 25 mg PO QDAY [facility] Nitroglycerin (Nitro-Bid 2%) 0.5 inch TP TIDNTG PRN; Protocol PRN Reason: Chest Pain Ondansetron HCl (Zofran) 4 mg IV Q8H PRN PRN Reason: Nausea And Vomiting Oxycodone/Acetaminophen (Percocet 5/325) 1 tab PO Q6H PRN PRN Reason: Pain, Moderate (4-6) Last Admin: 08/19/18 02:40 Dose: 1 tab Documented by: Pravastatin Sodium (Pravachol) 20 mg PO QHS [facility] Review of Systems Constitutional: weight gain, no weight loss, no fever, no chills, no anorexia, no fatigue, no weakness, no poor appetite Breasts: deferred Cardiovascular: edema, shortness of breath, dyspnea on exertion, leg edema, decreased exercise tolerance, no chest pain, no orthopnea, no palpitations, no s yncope, no lightheadedness Respiratory: cough, cough with sputum, shortness of breath, dyspnea on exertion, no excessive sputum, no hemoptysis, no home oxygen Gastrointestinal: no abdominal pain, no nausea, no vomiting, no diarrhea, no melena Genitourinary Female: no dysuria Rectal: no bleeding Musculoskeletal: no neck pain, no redness of joints Integumentary: no rash, no wounds, no jaundice Neurological: no paralysis, no weakness, no seizures, no syncope, no convulsions, no aphasia, no change in speech, no change in mentation, no confusion Exam - Vital Signs Vital signs: Vital Signs Temp Pulse Resp BP Pulse Ox 98.6 F 98 H 18 113/74 94 08/18/18 19:10 08/18/18 19:10 08/18/18 19:10 08/18/18 19:10 08/18/18 19:10 - General Appearance General appearance: well-developed, well-nourished, appears stated age, obese, other (not in distress) EENT: ATNC, PERRL, mucous membranes moist, hearing intact, vision intact Neck: Present: neck supple, trachea midline, JVD/HJR Respiratory: Clear to Ascultation, Decreased Breath Sounds Heart: regular, S1S2, no murmurs Gastrointestinal: Present: normoactive bowel sounds, obese. Absent: tenderness, distended Integumentary: no rash, warm and dry Neurologic: no focal deficit, no asterixis, alert and oriented x3 Musculoskeletal: Present: other (1+ edema of both LEs noted) Results - Lab Results 08/18/18 19:23 08/20/18 05:45 Most recent lab results Calcium 8.7 mg/dL (8.4-10.2) 08/19/18 05:22 Assessment and Plan 1. Acute kidney injury: Vasomotor / hemodynamic DMITRY in the setting of hypotension. Urine studies and Renal US ordered. Monitor Renal function. Avoid nephrotoxic agents. Meds dosage based on GFR. 2. FEN: Metabolic acidosis, monitor. 3. Right sided heart failure: Cor pulmonale. 4. Shortness of breath. 5. Anemia: POA. 6. DM-2.
--- NOTE | 2018-08-19 17:00 | Event Note ---
Date: 08/19/18 Patient seen and examined The patient is a 58-year-old female presenting with chief complaint shortness of breath. will continue current management and plan as dictated in H&P
[2018-08-19] MEDS ORDERED: NON-FORMULARY (Lovastatin [Altoprev] 20 MG) PO SCH (22:00)
[2018-08-19] MEDS: PRAVACHOL PO SCH (22:08)
[2018-08-20 06:39] LABS: Calcium 8.8 mg/dL (8.4-10.2)
[2018-08-20] MEDS: HumuLIN R SUB-Q SCH ×4 (08:19→22:33)
--- NOTE | 2018-08-20 08:34 | Progress Note ---
Assessment and Plan 1. Acute kidney injury: Vasomotor / hemodynamic DMITRY in the setting of hypotension. Renal US pending. Monitor Renal function. Avoid nephrotoxic agents. Meds dosage based on GFR. 2. FEN: Metabolic acidosis, improving. 3. Right sided heart failure: Cor pulmonale. 4. Shortness of breath. 5. Anemia: POA. 6. DM-2. Subjective Date of service: 08/20/18 Interval history: Patient was seen and examined at the bedside. Objective - Vital Signs Vital signs: Vital Signs - 12hr 08/19/18 08/20/18 08/20/18 20:41 04:00 04:02 Temperature 97.7 F 98.0 F Pulse Rate 97 H 93 H 98 H Respiratory 20 20 Rate Blood Pressure 98/65 88/56 O2 Sat by Pulse 100 97 Oximetry 08/20/18 08/20/18 08/20/18 07:20 08:09 08:10 Temperature 98.2 F Pulse Rate 93 H Respiratory 18 24 Rate Blood Pressure 96/61 O2 Sat by Pulse 98 Oximetry - General Appearance General appearance: well-developed, well-nourished, appears stated age, obese, other (not in distress) EENT: ATNC, PERRL, hearing intact, vision intact Neck: JVD, supple Respiratory: Present: Clear to Ascultation Cardiology: regular, S1S2, no murmurs Gastrointestinal: normoactive bowel sounds, no tenderness, no distended Integumentary: no rash, warm and dry Neurologic: no focal deficit, no asterixis, alert and oriented x3 Musculoskeletal: other (LE edema noted) - Lab 08/18/18 19:23 08/20/18 05:45 Most recent lab results Calcium 8.8 mg/dL (8.4-10.2) 08/20/18 05:45 Phosphorus 3.90 mg/dL (2.5-4.5) 08/20/18 05:45 Magnesium 1.70 mg/dL (1.7-2.3) 08/20/18 05:45 Medications & Allergies - Medications Allergies/Adverse Reactions: Allergies No Known Allergies Allergy (Verified 04/14/18 20:41) Home Medications: Home Medications Medication Instructions Recorded Confirmed Last Taken Type Albuterol Sulfate [Proventil Hfa] 2 puff IH Q4-6H PRN 30 Days 04/19/18 08/19/18 Unknown Rx hfa.aer.ad Lovastatin [Altoprev] 20 mg PO HS #30 tab.er.24h 04/19/18 08/19/18 Unknown Rx Metformin HCl [Glucophage] 1,000 mg PO BID #60 tablet 04/19/18 08/19/18 Unknown Rx Sitagliptin Phosphate [Januvia] 100 mg PO QDAY #30 tablet 04/19/18 08/19/18 Unknown Rx Budesonide/Formoterol Fumarate 2 puff IH BID 08/19/18 08/19/18 Unknown History [Symbicort 160-4.5 Mcg Inhaler] Furosemide [Lasix TAB] 40 mg PO QDAY 08/19/18 08/19/18 Unknown History Loratadine [Claritin] 10 mg PO DAILY 08/19/18 08/19/18 Unknown History Losartan [Cozaar] 100 mg PO QDAY 08/19/18 08/19/18 Unknown History hydroCHLOROthiazide [HCTZ] 25 mg PO QDAY 08/19/18 08/19/18 Unknown History Active Medications: Generic Name Dose Route Start Last Admin Trade Name Freq PRN Reason Stop Dose Admin Acetaminophen 650 mg 08/19/18 02:26 Tylenol PO Q4H PRN Headache Albuterol 2.5 mg 08/19/18 02:55 Proventil IH Q4HRT PRN Shortness Of Breath Aspirin 325 mg 08/19/18 10:00 08/19/18 09:28 Aspirin PO 325 mg QDAY PAUL Administration Dextrose 50 ml 08/19/18 02:36 D50w (25gm) Syringe IV PRN PRN Hypoglycemia Furosemide 40 mg 08/19/18 10:00 08/19/18 09:24 Lasix IV 40 mg QDAY PAUL Administration Heparin Sodium (Porcine) 5,000 unit 08/19/18 10:00 08/19/18 22:08 Heparin SUB-Q 5,000 unit Q12HR PAUL Administration Insulin Human Regular 0 units 08/19/18 07:30 08/20/18 08:19 Humulin R SUB-Q Not Given AC [facility] Protocol Insulin Human Regular 0 units 08/19/18 22:00 08/19/18 22:08 [facility]ulin R SUB-Q [facility] Protocol Losartan Potassium 25 mg 08/19/18 11:00 Cozaar PO QDAY PAUL Nitroglycerin 0.5 inch 08/19/18 08:37 Nitro-Bid 2% TP TIDNTG PRN Chest Pain Protocol Ondansetron HCl 4 mg 08/19/18 02:26 Zofran IV Q8H PRN Nausea And Vomiting Oxycodone/Acetaminophen 1 tab 08/19/18 02:30 08/19/18 02:40 Percocet 5/325 PO 1 tab Q6H PRN Administration Pain, Moderate (4-6) Pravastatin Sodium 20 mg 08/19/18 22:00 08/19/18 22:08 Pravachol PO 20 mg QHS PAUL Administration
[2018-08-20 10:32] LABS: Bacteria,Urine 3+ /HPF (Negative); Bilirubin,Urine NEG (Negative); Blood,Urine LG (Negative); Color,Urine Amber (Yellow); Mucus,Urine FEW /HPF
[2018-08-20 10:35] LABS: RBC,Urine > 182.0 /HPF (0.0-6.0); WBC,Urine > 182.0 /HPF (0.0-6.0)
[2018-08-20] MEDS: HEPARIN SUB-Q SCH ×2 (11:15→22:34)
[2018-08-20] MEDS: LASIX IV SCH (11:16)
[2018-08-20] MEDS: ASPIRIN PO SCH (11:17)
[2018-08-20 11:20] LABS: Creatinine,Urine 160.8 mg/dL (0.1-20.0)
--- NOTE | 2018-08-20 15:07 | Progress Note ---
Assessment and Plan /Acute on chronic hypoxemic respiratory failure. - Etiology likely secondary to cor pulmonale/severe pulmonary hypertension. Patient on home O2. - Continue nebs as needed /Acute kidney injury. Baseline Cr about 28/1.4 in June 2016. Improved slightly. Patient appears to be nearing her baseline. Nephrology following /Cor pulmonale with moderate to severe PHTN. Echocardiogram during last admission revealed severe cor pulmonale with severely dilated right heart chambers, severe TR, severe pulmonary hypertension, flattened IV septum consisitent with right heart pressure and volume overload. Left ventricular systolic function is normal limits with an EF of 50-55%. Pulmonary consultation requested. Await pulmonary recommendations. /Hypertension. Continue antihypertensive medications. /Diabetes mellitus type 2 Continue tradjenta, Accu-Cheks and sliding scale as /Asthma. Continue bronchodilators and breathing treatments. /Hyperlipidemia. Continue statin / Morbid (severe) obesity due to excess calories Weight reduction diet and Exercise when medically stable. need sleep study as out patient. /DVT prophylaxis. Continue heparin. Brief History: The patient is a 57 Yo female with history significant for Morbid obesity, DM-2, HTN, HLD and Asthma who presented to the ER with complaint of shortness of breath. She was just recently from the hospital and diagnosed with pulmonary hypertension and right sided heart failure. Radiological data: Chest x-ray: Enlarged heart, no infiltrates Hospitalist Physical exam: GENERAL: well-developed morbidly obese lying on bed appeared to be in no discomfort. HEENT: Normocephalic. Atraumatic. No conjunctival congestion or icterus. Patient has moist mucous membranes. NECK: Supple. Trachea midline. CHEST/LUNGS: Clear to auscultated bilaterally, breathing nonlabored. No wheezes crackles or rhonchi. HEART/CARDIOVASCULAR: Regular in rate and rhythm. S1 and S2 positive. ABDOMEN: Abdomen is soft, nontender. Patient has normal bowel sounds. SKIN: There is no rash. Warm and dry. NEURO: No focal motor deficit. Follows command. MUSCULOSKELETAL: No joint effusion or tenderness. EXTRIMITY: No edema, no cyanosis or clubbing. PSYCH: Cooperative. Subjective Date of service: 08/20/18 Interval history: Patient seen and examined. Medical records and medication list reviewed. No acute event overnight noted by the RN. Patient complains some difficulty breathing with minimal exertion. Patient is tolerating diet. Discussed plan of care at bedside with patient. Objective - Constitutional Vitals: Vital Signs - 12hr 08/20/18 08/20/18 08/20/18 04:00 04:02 07:20 Temperature 98.0 F 98.2 F Pulse Rate 93 H 98 H Respiratory 20 18 Rate Blood Pressure 88/56 96/61 Blood Pressure [Left] O2 Sat by Pulse 97 Oximetry 08/20/18 08/20/18 08/20/18 08:09 08:10 11:16 Temperature Pulse Rate 93 H Respiratory 24 Rate Blood Pressure 106/63 Blood Pressure [Left] O2 Sat by Pulse 98 Oximetry 08/20/18 11:59 Temperature 98.4 F Pulse Rate 91 H Respiratory 18 Rate Blood Pressure Blood Pressure 106/63 [Left] O2 Sat by Pulse 92 Oximetry - Labs CBC & Chem 7: 08/18/18 19:23 08/21/18 08:04 Labs: Abnormal lab results 08/19/18 08/19/18 08/19/18 Range/Units 15:47 17:29 21:27 BUN (7-17) mg/dL Creatinine (0.7-1.2) mg/dL Glucose (65-100) mg/dL POC Glucose 136 H 133 H 144 H (70-105) Urine WBC (Auto) (0.0-6.0) /HPF Urine Creatinine (0.1-20.0) mg/dL 08/20/18 08/20/18 08/20/18 Range/Units 05:45 07:25 10:01 BUN 30 H (7-17) mg/dL Creatinine 1.6 H (0.7-1.2) mg/dL Glucose 110 H (65-100) mg/dL POC Glucose 122 H (70-105) Urine WBC (Auto) > 182.0 H (0.0-6.0) /HPF Urine Creatinine (0.1-20.0) mg/dL 08/20/18 08/20/18 08/20/18 Range/Units 10:01 11:32 14:25 BUN (7-17) mg/dL Creatinine (0.7-1.2) mg/dL Glucose (65-100) mg/dL POC Glucose 131 H 268 H (70-105) Urine WBC (Auto) (0.0-6.0) /HPF Urine Creatinine 160.8 H (0.1-20.0) mg/dL
[2018-08-20] MEDS: MUCINEX ER PO SCH ×2 (18:18→22:34)
--- NOTE | 2018-08-20 19:07 | Consultation ---
History of Present Illness Consult date: 08/20/18 Reason for consult: dyspnea, cough History of present illness: PULMONARY AND CRITICAL CARE CONSULTATION DR. SLADE THANK YOU FOR ASKING US TO PARTICIPATE IN THE CARE OF THIS PATIENT. The patient is a 58-year-old female presenting with chief complaint shortness of breath. The patient states for one week she's had intermittent shortness of breath and dyspnea on exertion. Patient states she's had a cough which is non productive. The patient states she has noticed swelling in her legs and abdomen and feels as though she is retaining fluid. Patient denies Chest pain, nausea/vomiting or fever, nasal congestion or sore throat.Patient has history of asthma. History of hypertension and diabetes.Patient has no history of smoking but her smokes. Patient has no children. Use to work in [employer]. No Known allergies. Patient having excessive cough. Having wheezing and shortness of breath.On 2 litres O2.O2 saturation 100%. Chest xray reported enlarged heart and lungs are clear. Recommend albuterol/atrovent aerosol treatments Start in zithromax. Continue S/C Heparin. Continue famotidine. Adding solumedrol. Past History Past Medical History: diabetes, heart failure, hypertension, hyperlipidemia, other (SONIA, Pulmonary HTN, Asthma) Medications and Allergies Allergies Allergy/AdvReac Type Severity Reaction Status Date / Time No Known Allergies Allergy Verified 04/14/18 20:41 Home Medications Medication Instructions Recorded Confirmed Last Taken Type Albuterol Sulfate [Proventil Hfa] 2 puff IH Q4-6H PRN 30 Days 04/19/18 08/19/18 Unknown Rx hfa.aer.ad Lovastatin [Altoprev] 20 mg PO HS #30 tab.er.24h 04/19/18 08/19/18 Unknown Rx Metformin HCl [Glucophage] 1,000 mg PO BID #60 tablet 04/19/18 08/19/18 Unknown Rx Sitagliptin Phosphate [Januvia] 100 mg PO QDAY #30 tablet 04/19/18 08/19/18 Unknown Rx Budesonide/Formoterol Fumarate 2 puff IH BID 08/19/18 08/19/18 Unknown History [Symbicort 160-4.5 Mcg Inhaler] Furosemide [Lasix TAB] 40 mg PO QDAY 08/19/18 08/19/18 Unknown History Loratadine [Claritin] 10 mg PO DAILY 08/19/18 08/19/18 Unknown History Losartan [Cozaar] 100 mg PO QDAY 08/19/18 08/19/18 Unknown History hydroCHLOROthiazide [HCTZ] 25 mg PO QDAY 08/19/18 08/19/18 Unknown History Active Meds: Active Medications Acetaminophen (Tylenol) 650 mg PO Q4H PRN PRN Reason: Headache Albuterol (Proventil) 2.5 mg IH Q4HRT PRN PRN Reason: Shortness Of Breath Aspirin (Aspirin) 325 mg PO QDAY [facility] Last Admin: 08/20/18 11:17 Dose: 325 mg Documented by: Dextrose (D50w (25gm) Syringe) 50 ml IV PRN PRN PRN Reason: Hypoglycemia Furosemide (Lasix) 40 mg IV QDAY [facility] Last Admin: 08/20/18 11:16 Dose: 40 mg Documented by: Guaifenesin (Mucinex Er) 600 mg PO BID [facility] Last Admin: 08/20/18 18:18 Dose: 600 mg Documented by: Heparin Sodium (Porcine) (Heparin) 5,000 unit SUB-Q Q12HR [facility] Last Admin: 08/20/18 11:15 Dose: 5,000 unit Documented by: Insulin Human Regular (Humulin R) 0 units SUB-Q [facility]; Protocol Last Admin: 08/20/18 18:16 Dose: Not Given Documented by: Insulin Human Regular (Humulin R) 0 units SUB-Q QHS [facility]; Protocol Last Admin: 08/19/18 22:08 Dose: Not Given Documented by: Nitroglycerin (Nitro-Bid 2%) 0.5 inch TP TIDNTG PRN; Protocol PRN Reason: Chest Pain Ondansetron HCl (Zofran) 4 mg IV Q8H PRN PRN Reason: Nausea And Vomiting Oxycodone/Acetaminophen (Percocet 5/325) 1 tab PO Q6H PRN PRN Reason: Pain, Moderate (4-6) Last Admin: 08/19/18 02:40 Dose: 1 tab Documented by: Pravastatin Sodium (Pravachol) 20 mg PO QHS [facility] Last Admin: 08/19/18 22:08 Dose: 20 mg Documented by: Review of Systems All systems: negative Physical Examination Vital signs: Vital Signs Temp Pulse Resp BP Pulse Ox 98.6 F 98 H 18 113/74 94 08/18/18 19:10 08/18/18 19:10 08/18/18 19:10 08/18/18 19:10 08/18/18 19:10 General appearance: alert, appears uncomfortable Eyes: non-icteric ENT: oropharynx moist Neck: supple, no JVD Effort: mildly labored Ascultation: Bilateral: wheezes, rhonchi Cardiovascular: regular rate and rhythm Gastrointestinal: normoactive bowel sounds, soft, non-tender Integumentary: normal Extremities: no cyanosis, no edema Musculoskeletal: no deformities Gait: poor gait normal mental status, non-focal exam, pupils equal and round mood appropriate Results - Laboratory Findings CBC and BMP: 08/18/18 19:23 08/20/18 05:45 Abnormal lab findings: Abnormal Labs 08/18/18 08/18/18 08/18/18 19:23 19:23 19:30 Hgb 8.2 L Hct 27.2 L MCV 69 L MCH 21 L RDW 25.9 H Plt Count 515 H Seg Neuts % (Manual) 82.0 H Lymphocytes % (Manual) 8.0 L Lymphocytes # (Manual) 0.8 L Sodium Carbon Dioxide 19 L BUN 31 H Creatinine 1.8 H Glucose POC Glucose Total Bilirubin 2.40 H Direct Bilirubin 1.6 H NT-Pro-B Natriuret Pep 4971 H Albumin 3.4 L Urine WBC (Auto) Urine Creatinine 08/19/18 08/19/18 08/19/18 05:22 12:09 15:47 Hgb Hct MCV MCH RDW Plt Count Seg Neuts % (Manual) Lymphocytes % (Manual) Lymphocytes # (Manual) Sodium 136 L Carbon Dioxide 15 L BUN 31 H Creatinine 1.7 H Glucose 105 H POC Glucose 112 H 136 H Total Bilirubin Direct Bilirubin NT-Pro-B Natriuret Pep Albumin Urine WBC (Auto) Urine Creatinine 08/19/18 08/19/18 08/20/18 17:29 21:27 05:45 Hgb Hct MCV MCH RDW Plt Count Seg Neuts % (Manual) Lymphocytes % (Manual) Lymphocytes # (Manual) Sodium Carbon Dioxide BUN 30 H Creatinine 1.6 H Glucose 110 H POC Glucose 133 H 144 H Total Bilirubin Direct Bilirubin NT-Pro-B Natriuret Pep Albumin Urine WBC (Auto) Urine Creatinine 0508/20/18 08/20/18 07:25 10:01 10:01 Hgb Hct MCV MCH RDW Plt Count Seg Neuts % (Manual) Lymphocytes % (Manual) Lymphocytes # (Manual) Sodium Carbon Dioxide BUN Creatinine Glucose POC Glucose 122 H Total Bilirubin Direct Bilirubin NT-Pro-B Natriuret Pep Albumin Urine WBC (Auto) > 182.0 H Urine Creatinine 160.8 H 08/20/18 08/20/18 08/20/18 11:32 14:25 16:08 Hgb Hct MCV MCH RDW Plt Count Seg Neuts % (Manual) Lymphocytes % (Manual) Lymphocytes # (Manual) Sodium Carbon Dioxide BUN Creatinine Glucose POC Glucose 131 H 268 H 150 H Total Bilirubin Direct Bilirubin NT-Pro-B Natriuret Pep Albumin Urine WBC (Auto) Urine Creatinine - Diagnostic Findings Chest x-ray: report reviewed (CARDIOMEGALY, LUNGS CLEAR), image reviewed Assessment and Plan Patient is a 58-year-old female presenting with chief complaint shortness of breath. The patient states for one week she's had intermittent shortness of breath and dyspnea on exertion. Patient states she's had a cough which is non productive. The patient states she has noticed swelling in her legs and abdomen and feels as though she is retaining fluid. Patient denies Chest pain, nausea/ vomiting or fever, nasal congestion or sore throat.Patient has history of asthma. History of hypertension and diabetes.Patient has no history of smoking but her smokes. Patient has no children. Use to work in [employer]. No Known allergies. Patient having excessive cough. Having wheezing and shortness of breath.On 2 litres O2.O2 saturation 100%. Chest xray reported enlarged heart and lungs are clear. Recommend albuterol/atrovent aerosol treatments Start in zithromax. Continue S/C Heparin. Continue famotidine. Adding solumedrol. - Patient Problems (1) Dyspnea on exertion Current Visit: Yes Status: Acute Plan to address problem: 1. O2 2 litres via nasal canula. 2. Albuterol/atrovent aerosol treatments q 6 hours. 3. Zithromax 500 mg PO qd x 5 days. 4. Add I/V solumedrol 100 mg I/V q 8 hours. 5. Continue S/C Heparin. 6. Recommend famotidine. (2) Acute exacerbation of CHF (congestive heart failure) Current Visit: No Status: Acute Qualifiers: Heart failure type: combined systolic and diastolic Qualified Code(s): I50.43 - Acute on chronic combined systolic (congestive) and diastolic (congestive) heart failure Plan to address problem: Patient is on I/V Lasix. Management as per primary care. (3) Asthma Current Visit: No Status: Chronic Qualifiers: Asthma persistence: unspecified Plan to address problem: 1.O2 2 litres via nasal canula. 2. Albuterol/atrovent aerosol treatments q 6 hours. 3. Zithromax 500 mg PO qd x 5 days. 4. Add I/V solumedrol 100 mg I/V q 8 hours. 5. Continue S/C Heparin. 6. Recommend famotidine (4) Acute renal insufficiency Current Visit: Yes Status: Acute Plan to address problem: Management as per nephrology (5) Moderate to severe pulmonary hypertension Current Visit: No Status: Acute Plan to address problem: Could be from heart and lung problems. O2 supplementation and treat underlying cause. (6) HTN (hypertension) Current Visit: No Status: Chronic Qualifiers: Hypertension type: essential hypertension Qualified Code(s): I10 - Essential (primary) hypertension Plan to address problem: Management as per primary care. (7) T2DM (type 2 diabetes mellitus) Current Visit: No Status: Chronic Qualifiers: Diabetes mellitus [facility] insulin use: without [facility] use Plan to address problem: Management as per primary care. (8) Morbid (severe) obesity due to excess calories Current Visit: Yes Status: Acute Plan to address problem: Weight reduction diet Exercise. Recommend sleep study as out patient.
[2018-08-20] MEDS: PRAVACHOL PO SCH (22:34)
[2018-08-21] MEDS ORDERED: ZITHROMAX PO ONE
[2018-08-21] MEDS: ATROVENT IH SCH ×4 (03:10→19:22)
[2018-08-21] MEDS: PROVENTIL IH PRN ×2 (03:10→07:27)
[2018-08-21] MEDS ORDERED: ZITHROMAX ONE ×2 (03:54→03:55)
[2018-08-21] MEDS: PERCOCET 5/325 PO PRN (06:28)
[2018-08-21] MEDS: SOLU-Medrol IV SCH ×3 (06:29→21:42)
[2018-08-21] MEDS: HumuLIN R SUB-Q SCH ×4 (08:26→22:47)
[2018-08-21 09:21] LABS: Calcium 8.3 mg/dL (8.4-10.2)
--- NOTE | 2018-08-21 10:03 | Progress Note ---
Assessment and Plan 1. Acute kidney injury: Vasomotor / hemodynamic DMITRY in the setting of hypotension. Patient refused Renal US. Renal function is improving. Monitor Renal function. Avoid nephrotoxic agents. Meds dosage based on GFR. 2. FEN: Hyperkalemia, kayexalate ordered. Metabolic acidosis, improving. 3. Right sided heart failure: Cor pulmonale. 4. Acute hypoxemic respiratory failure. 5. Anemia: POA. 6. DM-2. Subjective Date of service: 08/21/18 Interval history: Patient was seen and examined at the bedside. Doing ok. Objective - Vital Signs Vital signs: Vital Signs - 12hr 08/20/18 08/20/18 08/21/18 23:37 23:48 00:11 Temperature 97.2 F L Pulse Rate 100 H Pulse Rate [ Bilateral Throughout] Respiratory 20 Rate Respiratory Rate [Bilateral Throughout] Blood Pressure 81/52 Blood Pressure 86/58 88/56 [Left] O2 Sat by Pulse 91 Oximetry 08/21/18 08/21/18 08/21/18 03:37 04:02 07:27 Temperature 97.8 F 98.6 F Pulse Rate 97 H 104 H Pulse Rate [ 100 H Bilateral Throughout] Respiratory 20 20 Rate Respiratory 20 Rate [Bilateral Throughout] Blood Pressure 95/54 100/54 Blood Pressure [Left] O2 Sat by Pulse 97 96 Oximetry - General Appearance General appearance: well-developed, well-nourished, appears stated age, obese, other (not in distress) EENT: ATNC, PERRL, hearing intact, vision intact Neck: JVD, supple Respiratory: Present: Clear to Ascultation Cardiology: regular, S1S2, no murmurs Gastrointestinal: normoactive bowel sounds, no tenderness, no distended Integumentary: no rash, warm and dry Neurologic: no focal deficit, no asterixis, alert and oriented x3 Musculoskeletal: other (no edema) - Lab 08/18/18 19:23 08/21/18 08:04 Most recent lab results Calcium 8.3 mg/dL (8.4-10.2) L 08/21/18 08:04 Phosphorus 3.90 mg/dL (2.5-4.5) 08/20/18 05:45 Magnesium 1.70 mg/dL (1.7-2.3) 08/20/18 05:45 160.8 mg/dL (0.1-20.0) H 08/20/18 10:01 35 mmol/L 08/20/18 10:01 Medications & Allergies - Medications Allergies/Adverse Reactions: Allergies No Known Allergies Allergy (Verified 04/14/18 20:41) Home Medications: Home Medications Medication Instructions Recorded Confirmed Last Taken Type Albuterol Sulfate [Proventil Hfa] 2 puff IH Q4-6H PRN 30 Days 04/19/18 08/19/18 Unknown Rx hfa.aer.ad Lovastatin [Altoprev] 20 mg PO HS #30 tab.er.24h 04/19/18 08/19/18 Unknown Rx Metformin HCl [Glucophage] 1,000 mg PO BID #60 tablet 04/19/18 08/19/18 Unknown Rx Sitagliptin Phosphate [Januvia] 100 mg PO QDAY #30 tablet 04/19/18 08/19/18 Unknown Rx Budesonide/Formoterol Fumarate 2 puff IH BID 08/19/18 08/19/18 Unknown History [Symbicort 160-4.5 Mcg Inhaler] Furosemide [Lasix TAB] 40 mg PO QDAY 08/19/18 08/19/18 Unknown History Loratadine [Claritin] 10 mg PO DAILY 08/19/18 08/19/18 Unknown History Losartan [Cozaar] 100 mg PO QDAY 08/19/18 08/19/18 Unknown History hydroCHLOROthiazide [HCTZ] 25 mg PO QDAY 08/19/18 08/19/18 Unknown History Active Medications: Generic Name Dose Route Start Last Admin Trade Name Freq PRN Reason Stop Dose Admin Acetaminophen 650 mg 08/19/18 02:26 Tylenol PO Q4H PRN Headache Albuterol 2.5 mg 08/19/18 02:55 08/21/18 07:27 Proventil IH 2.5 mg Q4HRT PRN Administration Shortness Of Breath Aspirin 325 mg 08/19/18 10:00 08/20/18 11:17 Aspirin PO 325 mg QDAY [facility]UL Administration Dextrose 50 ml 08/19/18 02:36 D50w (25gm) Syringe IV PRN PRN Hypoglycemia Famotidine 20 mg 08/21/18 10:00 Pepcid PO QDAY PAUL Furosemide 40 mg 08/19/18 10:00 08/20/18 11:16 Lasix IV 40 mg QDAY [facility] Administration Guaifenesin 600 mg 08/20/18 15:00 08/20/18 22:34 Mucinex Er PO 600 mg BID PAUL Administration Heparin Sodium (Porcine) 5,000 unit 08/19/18 10:00 08/20/18 22:34 Heparin SUB-Q 5,000 unit Q12HR [facility] Administration Insulin Human Regular 0 units 08/19/18 07:30 08/20/18 18:16 Humulin R SUB-Q Not Given AC PAUL Protocol Insulin Human Regular 0 units 08/19/18 22:00 08/20/18 22:33 Humulin R SUB-Q 1 units QHS [facility] Administration Protocol Ipratropium [place] 0.5 mg 08/21/18 02:00 08/21/18 07:27 Atrovent IH 0.5 mg Q6HRT PAUL Administration Methylprednisolone Sodium Succinate 100 mg 08/21/18 06:00 08/21/18 06:29 Solu-Medrol IV 100 mg Q8HR PAUL Administration Nitroglycerin 0.5 inch 08/19/18 08:37 Nitro-Bid 2% TP TIDNTG PRN Chest Pain Protocol Ondansetron HCl 4 mg 08/19/18 02:26 Zofran IV Q8H PRN Nausea And Vomiting Oxycodone/Acetaminophen 1 tab 08/19/18 02:30 08/21/18 06:28 Percocet 5/325 PO 1 tab Q6H PRN Administration Pain, Moderate (4-6) Pravastatin Sodium 20 mg 08/19/18 22:00 08/20/18 22:34 Pravachol PO 20 mg QHS [facility]UL Administration
[2018-08-21] MEDS ORDERED: KIONEX PO NR (10:30)
[2018-08-21] MEDS: ASPIRIN PO SCH (10:52)
[2018-08-21] MEDS: LASIX IV SCH (10:53)
[2018-08-21] MEDS: MUCINEX ER PO SCH ×2 (10:53→21:42)
[2018-08-21] MEDS: PEPCID PO SCH (10:53)
[2018-08-21] MEDS: HEPARIN SUB-Q SCH ×2 (10:54→21:42)
--- NOTE | 2018-08-21 15:05 | Progress Note ---
Assessment and Plan Acute hypoxemic respiratory failure. Cor pulmonale with severe pulmonary hypertension per 2D echo (with intraventricular septal flattening) Morbid obesity. Likely SONIA Acute kidney injury. Thrombocytosis. Diabetes type II History of asthma. Possible history of venous thromboembolic phenomenon - continue supplemental oxygen to keep sats > 90% - continue bronchodilators with pulmonary hygiene per RT - continue glycemic control with SSI - weight loss counseled - outpatient PFT's, PSG - DMITRY per nephrology team ... re-evaluate in am & prn Subjective Date of service: 08/21/18 Principal diagnosis: Acute hypoxemic resp failure; severe pulmonary HTN; Morbid obesity; DMITRY Interval history: Patient is seen today for: Acute hypoxemic respiratory failure; Cor pulmonale with severe pulmonary hypertension per 2D echo (with intraventricular septal flattening); Morbid obesity; Acute possibly on chronic kidney injury. Seen and examined at bedside; 24hour events reviewed; nursing and respiratory care staff consulted; no adverse overnight events reported to me; resting in bed; remains on supplemental oxygen; no N/V/F/C Objective Vital Signs - 12hr 08/21/18 08/21/18 08/21/18 03:37 04:02 07:27 Temperature 97.8 F 98.6 F Pulse Rate 97 H 104 H Pulse Rate [ 100 H 93 H Bilateral Throughout] Respiratory 20 20 Rate Respiratory 20 20 Rate [Bilateral Throughout] Blood Pressure 95/54 100/54 O2 Sat by Pulse 97 98 Oximetry 08/21/18 08/21/18 08/21/18 07:37 10:00 11:21 Temperature 97.9 F Pulse Rate 94 H Pulse Rate [ 96 H Bilateral Throughout] Respiratory 26 H 18 Rate Respiratory 20 Rate [Bilateral Throughout] Blood Pressure 99/54 O2 Sat by Pulse 96 97 Oximetry 08/21/18 08/21/18 13:14 13:25 Temperature Pulse Rate Pulse Rate [ 97 H 100 H Bilateral Throughout] Respiratory Rate Respiratory 20 20 Rate [Bilateral Throughout] Blood Pressure O2 Sat by Pulse Oximetry Constitutional: alert, appears uncomfortable Eyes: non-icteric ENT: oropharynx moist Neck: supple, no JVD Effort: mildly labored Ascultation: Bilateral: wheezes, rhonchi Cardiovascular: regular rate and rhythm Gastrointestinal: normoactive bowel sounds, soft, non-tender Integumentary: normal Extremities: no cyanosis, no edema Neurologic: normal mental status, non-focal exam, pupils equal and round Psychiatric: mood appropriate CBC and BMP: 08/22/18 05:24 08/22/18 05:24 Abnormal lab findings: Abnormal Labs 08/18/18 08/18/18 08/18/18 19:23 19:23 19:30 Hgb 8.2 L Hct 27.2 L MCV 69 L MCH 21 L RDW 25.9 H Plt Count 515 H Seg Neuts % (Manual) 82.0 H Lymphocytes % (Manual) 8.0 L Lymphocytes # (Manual) 0.8 L Sodium Potassium Carbon Dioxide 19 L BUN 31 H Creatinine 1.8 H Glucose POC Glucose Calcium Total Bilirubin 2.40 H Direct Bilirubin 1.6 H NT-Pro-B Natriuret Pep 4971 H Albumin 3.4 L Urine WBC (Auto) Urine Creatinine 08/19/18 08/19/18 08/19/18 05:22 12:09 15:47 Hgb Hct MCV MCH RDW Plt Count Seg Neuts % (Manual) Lymphocytes % (Manual) Lymphocytes # (Manual) Sodium 136 L Potassium Carbon Dioxide 15 L BUN 31 H Creatinine 1.7 H Glucose 105 H POC Glucose 112 H 136 H Calcium Total Bilirubin Direct Bilirubin NT-Pro-B Natriuret Pep Albumin Urine WBC (Auto) Urine Creatinine 08/19/18 08/19/18 08/20/18 17:29 21:27 05:45 Hgb Hct MCV MCH RDW Plt Count Seg Neuts % (Manual) Lymphocytes % (Manual) Lymphocytes # (Manual) Sodium Potassium Carbon Dioxide BUN 30 H Creatinine 1.6 H Glucose 110 H POC Glucose 133 H 144 H Calcium Total Bilirubin Direct Bilirubin NT-Pro-B Natriuret Pep Albumin Urine WBC (Auto) Urine Creatinine 08/20/18 08/20/18 08/20/18 07:25 10:01 10:01 Hgb Hct MCV MCH RDW Plt Count Seg Neuts % (Manual) Lymphocytes % (Manual) Lymphocytes # (Manual) Sodium Potassium Carbon Dioxide BUN Creatinine Glucose POC Glucose 122 H Calcium Total Bilirubin Direct Bilirubin NT-Pro-B Natriuret Pep Albumin Urine WBC (Auto) > 182.0 H Urine Creatinine 160.8 H 08/20/18 08/20/18 08/20/18 11:32 14:25 16:08 Hgb Hct MCV MCH RDW Plt Count Seg Neuts % (Manual) Lymphocytes % (Manual) Lymphocytes # (Manual) Sodium Potassium Carbon Dioxide BUN Creatinine Glucose POC Glucose 131 H 268 H 150 H Calcium Total Bilirubin Direct Bilirubin NT-Pro-B Natriuret Pep Albumin Urine WBC (Auto) Urine Creatinine 08/20/18 08/21/18 08/21/18 22:07 08:04 11:23 Hgb Hct MCV MCH RDW Plt Count Seg Neuts % (Manual) Lymphocytes % (Manual) Lymphocytes # (Manual) Sodium Potassium 5.1 H Carbon Dioxide 20 L BUN 29 H Creatinine 1.5 H Glucose 109 H POC Glucose 164 H 163 H Calcium 8.3 L Total Bilirubin Direct Bilirubin NT-Pro-B Natriuret Pep Albumin Urine WBC (Auto) Urine Creatinine Chest x-ray: report reviewed Allied health notes reviewed: nursing
--- NOTE | 2018-08-21 16:17 | Progress Note ---
Assessment and Plan /Acute on chronic hypoxemic respiratory failure. - Etiology likely secondary to cor pulmonale/severe pulmonary hypertension and underlying asthma exacerbation. Patient on home O2. - Continue nebs scheduled and as needed - follow pulmonary recommendation /Acute kidney injury. Baseline Cr about 28/1.4 in June 2016. Improved slightly. Patient appears to be nearing her baseline. Nephrology following /Cor pulmonale with moderate to severe PHTN. Echocardiogram during last admission revealed severe cor pulmonale with severely dilated right heart chambers, severe TR, severe pulmonary hypertension, flattened IV septum consisitent with right heart pressure and volume overload. Left ventricular systolic function is normal limits with an EF of 50-55%. Pulmonary consulted /Hypertension. Continue antihypertensive medications. /Diabetes mellitus type 2 Continue tradjenta, Accu-Cheks and sliding scale as /Asthma with exacerbation Continue steroids, bronchodilators and breathing treatments. Patient also placed on antibiotics for acute bronchitis /Hyperlipidemia. Continue statin /UTI, POA - cont abx / Morbid (severe) obesity due to excess calories Weight reduction diet and Exercise when medically stable. need sleep study as out patient. /DVT prophylaxis. Continue heparin. Disposition: Possible DC home if renal function remains stable, and patient clinically improves. Consulted PT for d/c clearance Brief History: The patient is a 57 Yo female with history significant for Morbid obesity, DM-2, HTN, HLD and Asthma who presented to the ER with complaint of shortness of breath. She was just recently from the hospital and diagnosed with pulmonary hypertension and right sided heart failure. Radiological data: Chest x-ray: Enlarged heart, no infiltrates Hospitalist Physical exam: GENERAL: well-developed morbidly obese lying on bed appeared to be in no discomfort. HEENT: Normocephalic. Atraumatic. No conjunctival congestion or icterus. Patient has moist mucous membranes. NECK: Supple. Trachea midline. CHEST/LUNGS: Clear to auscultated bilaterally, breathing nonlabored. No wheezes crackles or rhonchi. HEART/CARDIOVASCULAR: Regular in rate and rhythm. S1 and S2 positive. ABDOMEN: Abdomen is soft, nontender. Patient has normal bowel sounds. SKIN: There is no rash. Warm and dry. NEURO: No focal motor deficit. Follows command. MUSCULOSKELETAL: No joint effusion or tenderness. EXTRIMITY: No edema, no cyanosis or clubbing. PSYCH: Cooperative. Subjective Date of service: 08/21/18 Principal diagnosis: Acute hypoxemic resp failure; severe pulmonary HTN; Morbid obesity; DMITRY Interval history: Patient seen and examined. Medical records and medication list reviewed. No acute event overnight noted by the RN. Patient complains difficulty breathing with ambulation, but states she feels better. Patient is tolerating diet. Discussed plan of care at bedside with patient. Objective - Constitutional Vitals: Vital Signs - 12hr 08/21/18 08/21/18 08/21/18 07:27 07:37 10:00 Temperature 98.6 F Pulse Rate 104 H Pulse Rate [ 93 H 96 H Bilateral Throughout] Respiratory 20 26 H Rate Respiratory 20 20 Rate [Bilateral Throughout] Blood Pressure 100/54 O2 Sat by Pulse 98 96 Oximetry 08/21/18 08/21/18 08/21/18 11:21 13:14 13:25 Temperature 97.9 F Pulse Rate 94 H Pulse Rate [ 97 H 100 H Bilateral Throughout] Respiratory 18 Rate Respiratory 20 20 Rate [Bilateral Throughout] Blood Pressure 99/54 O2 Sat by Pulse 97 Oximetry - Labs CBC & Chem 7: 08/22/18 05:24 08/22/18 05:24 Labs: Abnormal lab results 08/20/18 08/20/18 08/21/18 Range/Units 16:08 22:07 08:04 Potassium 5.1 H (3.6-5.0) mmol/L Carbon Dioxide 20 L (22-30) mmol/L BUN 29 H (7-17) mg/dL Creatinine 1.5 H (0.7-1.2) mg/dL Glucose 109 H (65-100) mg/dL POC Glucose 150 H 164 H (70-105) Calcium 8.3 L (8.4-10.2) mg/dL 08/21/18 Range/Units 11:23 Potassium (3.6-5.0) mmol/L Carbon Dioxide (22-30) mmol/L BUN (7-17) mg/dL Creatinine (0.7-1.2) mg/dL Glucose (65-100) mg/dL POC Glucose 163 H (70-105) Calcium (8.4-10.2) mg/dL
[2018-08-21] MEDS: PRAVACHOL PO SCH (21:42)
[2018-08-22] MEDS: ATROVENT IH SCH ×3 (01:45→14:10)
[2018-08-22] MEDS: SOLU-Medrol IV SCH ×2 (05:17→14:48)
[2018-08-22] MEDS: MUCINEX ER PO SCH ×2 (05:24→12:51)
[2018-08-22 05:58] LABS: Hematocrit 24.5 % (30.3-42.9); Hemoglobin 7.5 gm/dl (10.1-14.3); Mean Corpuscular HGB Conc 31 % (30-34); Platelet Count 395 K/mm3 (140-440); Red Blood Count 3.64 M/mm3 (3.65-5.03)
[2018-08-22 06:11] LABS: Mean Corpuscular Volume 67 fl (79-97)
[2018-08-22 06:12] LABS: Red Cell Distribution Width 25.5 % (13.2-15.2)
[2018-08-22 06:24] LABS: Calcium 8.1 mg/dL (8.4-10.2)
[2018-08-22] MEDS: PROVENTIL IH PRN (08:00)
[2018-08-22 08:14] LABS: Basophils % (Manual) 0 % (0.0-1.8); Eosinophils % (Manual) 0 % (0.0-4.3); Total Cells Counted 100
[2018-08-22 08:15] LABS: Anisocytosis 2+; Platelet Estimate Consistent w Auto; Poikilocytosis 2+; Spherocytes Few; Target Cells 1+
[2018-08-22] MEDS: HumuLIN R SUB-Q SCH ×2 (09:25→12:50)
[2018-08-22] MEDS: ASPIRIN PO SCH (09:26)
[2018-08-22] MEDS: LASIX IV SCH (09:27)
[2018-08-22] MEDS: HEPARIN SUB-Q SCH (09:27)
[2018-08-22] MEDS: PEPCID PO SCH (09:27)
--- NOTE | 2018-08-22 09:56 | Progress Note ---
Assessment and Plan 1. Acute kidney injury: Vasomotor / hemodynamic DMITRY in the setting of hypotension. Patient refused Renal US. Renal function is stable. Monitor Renal function. Avoid nephrotoxic agents. Meds dosage based on GFR. 2. FEN: Hyperkalemia, improved. Metabolic acidosis, improved. 3. Right sided heart failure: Cor pulmonale. 4. Acute hypoxemic respiratory failure. 5. Anemia: POA. 6. DM-2. F/u with me in 2 weeks. Subjective Date of service: 08/22/18 Principal diagnosis: Acute hypoxemic resp failure; severe pulmonary HTN; Morbid obesity; DMITRY Interval history: Patient was seen and examined at the bedside. Doing ok. Objective - Vital Signs Vital signs: Vital Signs - 12hr 08/21/18 08/22/18 08/22/18 22:00 00:07 01:47 Temperature 98.0 F Pulse Rate 102 H 104 H Pulse Rate [ 100 H Bilateral Throughout] Respiratory 18 Rate Respiratory 18 Rate [Bilateral Throughout] Blood Pressure 105/64 Blood Pressure [Left] O2 Sat by Pulse 96 Oximetry 08/22/18 08/22/18 08/22/18 01:57 05:17 07:17 Temperature 98 F 97.9 F Pulse Rate Pulse Rate [ 98 H Bilateral Throughout] Respiratory 18 18 Rate Respiratory 21 Rate [Bilateral Throughout] Blood Pressure 106/77 Blood Pressure 128/68 [Left] O2 Sat by Pulse Oximetry 08/22/18 08/22/18 08/22/18 07:59 08:00 08:15 Temperature Pulse Rate Pulse Rate [ 100 H 97 H Bilateral Throughout] Respiratory Rate Respiratory 20 18 Rate [Bilateral Throughout] Blood Pressure Blood Pressure [Left] O2 Sat by Pulse 96 Oximetry - General Appearance General appearance: well-developed, well-nourished, appears stated age, obese (morbid), other (no distress) EENT: ATNC, PERRL, hearing intact, vision intact Neck: JVD, supple Respiratory: Present: Clear to Ascultation Cardiology: regular, S1S2, no murmurs Gastrointestinal: normoactive bowel sounds, no tenderness, no distended, obese Integumentary: no rash, warm and dry Neurologic: no focal deficit, no asterixis, alert and oriented x3 Musculoskeletal: other (no edema) - Lab 08/22/18 05:24 08/22/18 05:24 Most recent lab results Calcium 8.1 mg/dL (8.4-10.2) L 08/22/18 05:24 Phosphorus 3.90 mg/dL (2.5-4.5) 08/20/18 05:45 Magnesium 1.70 mg/dL (1.7-2.3) 08/20/18 05:45 160.8 mg/dL (0.1-20.0) H 08/20/18 10:01 35 mmol/L 08/20/18 10:01 Medications & Allergies - Medications Allergies/Adverse Reactions: Allergies No Known Allergies Allergy (Verified 04/14/18 20:41) Home Medications: Home Medications Medication Instructions Recorded Confirmed Last Taken Type Albuterol Sulfate [Proventil Hfa] 2 puff IH Q4-6H PRN 30 Days 04/19/18 08/19/18 Unknown Rx hfa.aer.ad Lovastatin [Altoprev] 20 mg PO HS #30 tab.er.24h 04/19/18 08/19/18 Unknown Rx Metformin HCl [Glucophage] 1,000 mg PO BID #60 tablet 04/19/18 08/19/18 Unknown Rx Sitagliptin Phosphate [Januvia] 100 mg PO QDAY #30 tablet 04/19/18 08/19/18 Unknown Rx Budesonide/Formoterol Fumarate 2 puff IH BID 08/19/18 08/19/18 Unknown History [Symbicort 160-4.5 Mcg Inhaler] Furosemide [Lasix TAB] 40 mg PO QDAY 08/19/18 08/19/18 Unknown History Loratadine [Claritin] 10 mg PO DAILY 08/19/18 08/19/18 Unknown History ALBUTEROL NEB's [Proventil 0.083% 2.5 mg IH Q4HRT PRN #30 nebu 08/22/18 Unknown Rx NEBS] Prednisone [predniSONE 10 mg 10 mg PO .TAPER #1 tab.ds.pk 08/22/18 Unknown Rx (6-Day Pack, 21 Tabs)] guaiFENesin ER [Mucinex ER] 600 mg PO Q6HR #14 tablet 08/22/18 Unknown Rx levoFLOXacin [Levaquin TAB] 500 mg PO QDAY #4 tablet 08/22/18 Unknown Rx Active Medications: Generic Name Dose Route Start Last Admin Trade Name Freq PRN Reason Stop Dose Admin Acetaminophen 650 mg 08/19/18 02:26 Tylenol PO Q4H PRN Headache Albuterol 2.5 mg 08/19/18 02:55 08/22/18 08:00 Proventil IH 2.5 mg Q4HRT PRN Administration Shortness Of Breath Aspirin 325 mg 08/19/18 10:00 08/22/18 09:26 Aspirin PO 325 mg QDAY PAUL Administration Dextrose 50 ml 08/19/18 02:36 D50w (25gm) Syringe IV PRN PRN Hypoglycemia Famotidine 20 mg 08/21/18 10:00 08/22/18 09:27 Pepcid PO 20 mg QDAY PAUL Administration Furosemide 40 mg 08/19/18 10:00 08/22/18 09:27 Lasix IV 40 mg QDAY PAUL Administration Guaifenesin 600 mg 08/22/18 06:00 08/22/18 05:24 Mucinex Er PO 600 mg Q6HR PAUL Administration Heparin Sodium (Porcine) 5,000 unit 08/19/18 10:00 08/22/18 09:27 Heparin SUB-Q 5,000 unit Q12HR PAUL Administration Insulin Human Regular 0 units 08/19/18 07:30 08/22/18 09:25 Humulin R SUB-Q 2 units AC PAUL Administration Protocol Insulin Human Regular 0 units 08/19/18 22:00 08/21/18 22:47 Humulin R SUB-Q 3 units QHS PAUL Administration Protocol Ipratropium [place] 0.5 mg 08/21/18 02:00 08/22/18 08:00 Atrovent IH 0.5 mg Q6HRT PAUL Administration Methylprednisolone Sodium Succinate 100 mg 08/21/18 06:00 08/22/18 05:17 Solu-Medrol IV 100 mg Q8HR PAUL Administration Nitroglycerin 0.5 inch 08/19/18 08:37 Nitro-Bid 2% TP TIDNTG PRN Chest Pain Protocol Ondansetron HCl 4 mg 08/19/18 02:26 Zofran IV Q8H PRN Nausea And Vomiting Oxycodone/Acetaminophen 1 tab 08/19/18 02:30 08/21/18 06:28 Percocet 5/325 PO 1 tab Q6H PRN Administration Pain, Moderate (4-6) Pravastatin Sodium 20 mg 08/19/18 22:00 08/21/18 21:42 Pravachol PO 20 mg QHS PAUL Administration
[2018-08-22 12:00] LABS: Iron 17 ug/dL (37-170); Total Iron Binding Capacity 431 mcg/dL (250-450)
[2018-08-22 12:24] VITALS: BP 108/74
--- NOTE | 2018-08-22 15:46 | Progress Note ---
Assessment and Plan Acute hypoxemic respiratory failure. Cor pulmonale with severe pulmonary hypertension per 2D echo (with intraventricular septal flattening) Morbid obesity. Likely SONIA Acute kidney injury. Thrombocytosis. Diabetes type II History of asthma. Possible history of venous thromboembolic phenomenon - continue diuresis for acute CHF exacerbation - continue supplemental oxygen to keep sats > 90% - continue bronchodilators with pulmonary hygiene per RT - continue glycemic control with SSI - weight loss counseled - outpatient PFT's, PSG - DMITRY per nephrology team ... re-evaluate in am & prn Subjective Date of service: 08/22/18 Principal diagnosis: Acute hypoxemic resp failure; severe pulmonary HTN; Morbid obesity; DMITRY Interval history: Patient is seen today for: Acute hypoxemic respiratory failure; Cor pulmonale with severe pulmonary hypertension per 2D echo (with intraventricular septal flattening); Morbid obesity; Acute possibly on chronic kidney injury. Seen and examined at bedside; 24hour events reviewed; nursing and respiratory care staff consulted; no adverse overnight events reported to me; resting in bed; remains on supplemental oxygen; no N/V/F/C Objective Vital Signs - 12hr 08/22/18 08/22/18 08/22/18 05:17 07:17 07:59 Temperature 98 F 97.9 F Pulse Rate Pulse Rate [ Bilateral Throughout] Respiratory 18 18 Rate Respiratory Rate [Bilateral Throughout] Blood Pressure 106/77 Blood Pressure 128/68 [Left] O2 Sat by Pulse 96 Oximetry 08/22/18 08/22/18 08/22/18 08:00 08:15 12:00 Temperature 97.6 F Pulse Rate 97 H Pulse Rate [ 100 H 97 H Bilateral Throughout] Respiratory 18 Rate Respiratory 20 18 Rate [Bilateral Throughout] Blood Pressure 108/74 Blood Pressure [Left] O2 Sat by Pulse 98 Oximetry Constitutional: alert, appears uncomfortable Eyes: non-icteric ENT: oropharynx moist Neck: supple, no JVD Effort: mildly labored Ascultation: Bilateral: wheezes, rhonchi Cardiovascular: regular rate and rhythm Gastrointestinal: normoactive bowel sounds, soft, non-tender Integumentary: normal Extremities: no cyanosis, no edema Neurologic: normal mental status, non-focal exam, pupils equal and round Psychiatric: mood appropriate CBC and BMP: 08/22/18 05:24 08/22/18 05:24 Abnormal lab findings: Abnormal Labs 05/08/18/18 08/18/18 19:23 19:23 19:30 RBC Hgb 8.2 L Hct 27.2 L MCV 69 L MCH 21 L RDW 25.9 H Plt Count 515 H Seg Neuts % (Manual) 82.0 H Lymphocytes % (Manual) 8.0 L Nucleated RBC % Seg Neutrophils # Man Lymphocytes # (Manual) 0.8 L Sodium Potassium Carbon Dioxide 19 L BUN 31 H Creatinine 1.8 H Glucose POC Glucose Calcium Iron Total Bilirubin 2.40 H Direct Bilirubin 1.6 H NT-Pro-B Natriuret Pep 4971 H Albumin 3.4 L Urine WBC (Auto) Urine Creatinine 08/19/18 08/19/18 08/19/18 05:22 12:09 15:47 RBC Hgb Hct MCV MCH RDW Plt Count Seg Neuts % (Manual) Lymphocytes % (Manual) Nucleated RBC % Seg Neutrophils # Man Lymphocytes # (Manual) Sodium 136 L Potassium Carbon Dioxide 15 L BUN 31 H Creatinine 1.7 H Glucose 105 H POC Glucose 112 H 136 H Calcium Iron Total Bilirubin Direct Bilirubin NT-Pro-B Natriuret Pep Albumin Urine WBC (Auto) Urine Creatinine 08/19/18 08/19/18 08/20/18 17:29 21:27 05:45 RBC Hgb Hct MCV MCH RDW Plt Count Seg Neuts % (Manual) Lymphocytes % (Manual) Nucleated RBC % Seg Neutrophils # Man Lymphocytes # (Manual) Sodium Potassium Carbon Dioxide BUN 30 H Creatinine 1.6 H Glucose 110 H POC Glucose 133 H 144 H Calcium Iron Total Bilirubin Direct Bilirubin NT-Pro-B Natriuret Pep Albumin Urine WBC (Auto) Urine Creatinine 08/20/18 08/20/18 08/20/18 07:25 10:01 10:01 RBC Hgb Hct MCV MCH RDW Plt Count Seg Neuts % (Manual) Lymphocytes % (Manual) Nucleated RBC % Seg Neutrophils # Man Lymphocytes # (Manual) Sodium Potassium Carbon Dioxide BUN Creatinine Glucose POC Glucose 122 H Calcium Iron Total Bilirubin Direct Bilirubin NT-Pro-B Natriuret Pep Albumin Urine WBC (Auto) > 182.0 H Urine Creatinine 160.8 H 08/20/18 08/20/18 08/20/18 11:32 14:25 16:08 RBC Hgb Hct MCV MCH RDW Plt Count Seg Neuts % (Manual) Lymphocytes % (Manual) Nucleated RBC % Seg Neutrophils # Man Lymphocytes # (Manual) Sodium Potassium Carbon Dioxide BUN Creatinine Glucose POC Glucose 131 H 268 H 150 H Calcium Iron Total Bilirubin Direct Bilirubin NT-Pro-B Natriuret Pep Albumin Urine WBC (Auto) Urine Creatinine 08/20/18 08/21/18 08/21/18 22:07 08:04 11:23 RBC Hgb Hct MCV MCH RDW Plt Count Seg Neuts % (Manual) Lymphocytes % (Manual) Nucleated RBC % Seg Neutrophils # Man Lymphocytes # (Manual) Sodium Potassium 5.1 H Carbon Dioxide 20 L BUN 29 H Creatinine 1.5 H Glucose 109 H POC Glucose 164 H 163 H Calcium 8.3 L Iron Total Bilirubin Direct Bilirubin NT-Pro-B Natriuret Pep Albumin Urine WBC (Auto) Urine Creatinine 08/21/18 08/21/18 08/22/18 15:18 20:34 05:24 RBC 3.64 L Hgb 7.5 L Hct 24.5 L MCV 67 L MCH 21 L RDW 25.5 H Plt Count Seg Neuts % (Manual) 94.0 H Lymphocytes % (Manual) 5.0 L Nucleated RBC % 1.0 H Seg Neutrophils # Man 9.2 H Lymphocytes # (Manual) 0.5 L Sodium Potassium Carbon Dioxide BUN Creatinine Glucose POC Glucose 267 H 278 H Calcium Iron Total Bilirubin Direct Bilirubin NT-Pro-B Natriuret Pep Albumin Urine WBC (Auto) Urine Creatinine 08/22/18 08/22/18 08/22/18 05:24 07:22 11:12 RBC Hgb Hct MCV MCH RDW Plt Count Seg Neuts % (Manual) Lymphocytes % (Manual) Nucleated RBC % Seg Neutrophils # Man Lymphocytes # (Manual) Sodium Potassium Carbon Dioxide BUN 32 H Creatinine 1.6 H Glucose 234 H POC Glucose 237 H 301 H Calcium 8.1 L Iron Total Bilirubin Direct Bilirubin NT-Pro-B Natriuret Pep Albumin Urine WBC (Auto) Urine Creatinine 08/22/18 11:30 RBC Hgb Hct MCV MCH RDW Plt Count Seg Neuts % (Manual) Lymphocytes % (Manual) Nucleated RBC % Seg Neutrophils # Man Lymphocytes # (Manual) Sodium Potassium Carbon Dioxide BUN Creatinine Glucose POC Glucose Calcium Iron 17 L Total Bilirubin Direct Bilirubin NT-Pro-B Natriuret Pep Albumin Urine WBC (Auto) Urine Creatinine
--- NOTE | 2018-08-22 15:52 | Discharge Summary ---
Providers - Providers Date of Admission: 08/19/18 03:29 Date of discharge: 08/22/18 Attending physician: SAAD PATTEN 08/19/18 06:00 Consult to Physician [CONS] Routine Comment: Answering Service notified @ [id number] Consulting Provider: JAYLYN CARRERO Physician Instructions: Reason For Exam: DMITRY 08/20/18 13:08 Consult to Physician [CONS] Routine Comment: Consulting Provider: RADHA FREGOSO Physician Instructions: Reason For Exam: pulmonary HTN 08/21/18 16:17 Physical Therapy Evaluation and Treat [CONS] Routine Comment: Reason For Exam: placement [facility] Condition: Fair Hospital course: Brief History: The patient is a 57 Yo female with history significant for Morbid obesity, DM-2, HTN, HLD and Asthma who presented to the ER with complaint of shortness of breath. She was just recently discharged from the hospital and diagnosed with pulmonary hypertension and right sided heart failure. Patient was admitted for further evaluation and management. She was placed on scheduled nebs, abx and supplemental O2, she was medically optimized then was discharged home with . Radiological data: Chest x-ray: Enlarged heart, no infiltrates Discharge diagnosis and management: /Acute on chronic hypoxemic respiratory failure. - Etiology likely secondary to cor pulmonale/severe pulmonary hypertension and underlying asthma exacerbation. Patient on home O2. - managed with nebs scheduled and as needed - will follow with pulmonary outpt /Acute kidney injury. Baseline Cr about 28/1.4 in June 2016. Improved slightly. Patient appears to be nearing her baseline. Nephrology was consulted, will continue outpt followup /Cor pulmonale with moderate to severe PHTN. Echocardiogram during last admission revealed severe cor pulmonale with severely dilated right heart chambers, severe TR, severe pulmonary hypertension, flattened IV septum consisitent with right heart pressure and volume overload. Left ventricular systolic function is normal limits with an EF of 50-55%. Pulmonary consulted and recommended outpt followup /Hypertension. Continue antihypertensive medications. /Diabetes mellitus type 2 Continue tradjenta, Accu-Cheks and sliding scale as needed /Asthma with exacerbation Continue steroids, bronchodilators and breathing treatments. Patient also placed on antibiotics for acute bronchitis /Hyperlipidemia. Continue statin /UTI, POA - treated with abx / Morbid (severe) obesity due to excess calories Weight reduction diet and Exercise when medically stable. need sleep study as out patient. /DVT prophylaxis. Continue heparin. Disposition: DC home with PT Hospitalist Physical exam: GENERAL: well-developed morbidly obese lying on bed appeared to be in no discomfort. HEENT: Normocephalic. Atraumatic. No conjunctival congestion or icterus. Patient has moist mucous membranes. NECK: Supple. Trachea midline. CHEST/LUNGS: Clear to auscultated bilaterally, breathing nonlabored. No wheezes crackles or rhonchi. HEART/CARDIOVASCULAR: Regular in rate and rhythm. S1 and S2 positive. ABDOMEN: Abdomen is soft, nontender. Patient has normal bowel sounds. SKIN: There is no rash. Warm and dry. NEURO: No focal motor deficit. Follows command. MUSCULOSKELETAL: No joint effusion or tenderness. EXTRIMITY: No edema, no cyanosis or clubbing. PSYCH: Cooperative. Disposition: DC-01 TO HOME OR SELFCARE Time spent for discharge: 34 minutes Core Measure Documentation - Palliative Care Palliative Care/ Comfort Measures: Not Applicable - Core Measures Any of the following diagnoses?: history only Exam - Constitutional Vitals: Temp Pulse Resp BP Pulse Ox 97.6 F 97 H 18 108/74 98 08/22/18 12:00 08/22/18 12:00 08/22/18 12:00 08/22/18 12:00 08/22/18 12:00 Plan Activity: advance as tolerated Weight Bearing Status: Weight Bear as Tolerated Diet: low fat, diabetic Special Instructions: restrict fluid intake to (1.5L daily), record daily BP diary, record blood sugar diary, no heavy lifting Additional Instructions: BMP in one week Follow up with: RADHA FREGOSO MD [Staff Physician] - 7 Days [place] L[place] GARCIA MD [Primary Care Provider] - 3-5 Days CHANDLER TURNER MD [Staff Physician] - 7 Days Prescriptions: levoFLOXacin [Levaquin TAB] 500 mg PO QDAY #4 tablet guaiFENesin ER [Mucinex ER] 600 mg PO Q6HR #14 tablet Prednisone [predniSONE 10 mg (6-Day Pack, 21 Tabs)] 10 mg PO .TAPER #1 tab.ds.pk ALBUTEROL NEB's [Proventil 0.083% NEBS] 2.5 mg IH Q4HRT PRN #30 nebu PRN Reason: Shortness Of Breath
== END 2018-08-22 17:03 | disposition home or self-care (01) | DRG 682 ==
LOC: ED 17:46 → 4A 08-19 03:29
PROVIDERS: ADMIT Internal Medicine; ATTEND Internal Medicine
DX: N17.0 Acute kidney failure with tubular necrosis (principal); J96.21 Acute and chronic respiratory failure with hypoxia; I50.43 Acute on chronic combined systolic (congestive) and diastolic (congestive) heart failure; E87.2 Acidosis; Z68.42 Body mass index [BMI] 45.0-49.9, adult; N39.0 Urinary tract infection, site not specified; J45.901 Unspecified asthma with (acute) exacerbation; I11.0 Hypertensive heart disease with heart failure; I27.81 Cor pulmonale (chronic); E11.9 Type 2 diabetes mellitus without complications; D64.9 Anemia, unspecified; E66.01 Morbid (severe) obesity due to excess calories; E78.5 Hyperlipidemia, unspecified; I27.20 Pulmonary hypertension, unspecified; G47.33 Obstructive sleep apnea (adult) (pediatric); I95.9 Hypotension, unspecified; Z86.711 Personal history of pulmonary embolism; Z79.84 Long term (current) use of oral hypoglycemic drugs; Z91.14 Patient's other noncompliance with medication regimen
CPT/HCPCS: 36415; 71046; 80048; 80076; 81001; 82550; 82553; 82570; 82728; 82962; 83550; 83735; 83880; 84100; 84300; 84466; 84484; 85007; 85025; 87116; 93005; 93010; 93306; 94640; 94760; G0378; A9270-GY; J1644; J1815; J1940; J2930